=== PATIENT | female | born 2005 | race Caucasian/White ===

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

== ENCOUNTER 2024-06-17 13:48 | Emergency (ER) | payer OTHER, SELFPAY ==
[2024-06-17 13:51] VITALS: BP 118/64; PULSE 96; RESP 19; TEMP 36.9; O2SAT 100
--- NOTE | 2024-06-17 14:30 | ED.GENADULT ---
HPI - General Adult General Stated complaint: Left Leg Pain Source: patient Mode of arrival: ambulatory Limitations: no limitations History of Present Illness HPI narrative: Pt presents for evaluation of left lower extremity pain for the past three days. No identified precipitating cause or injury. She woke from sleep with her symptoms. Pain originates from her hip and radiates into the middle of her thigh. Pain is constant, sharp, 7/10 in severity. No history of similar symptoms. She is current , approximately 28 weeks gestation, under the care of Dr Nuñez. No abdominal pain or vaginal bleeding. She has not taken any medications to assist with her symptoms. She is requesting a note to excuse her from work. 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 Related Data Home Medications Medication Instructions Recorded Confirmed Classic 1 tab-cap PO DAILY 06/17/24 06/17/24 Allergies Allergy/AdvReac Type Severity Reaction Status Date / Time Sulfa (Sulfonamide Allergy Mild Swelling Verified 06/17/24 14:00 Antibiotics) Review of Systems Review of Systems: CONSTITUTIONAL: Denies fever, chills, or sweats. EYES: Denies visual changes, redness, or discharge. ENT: Denies rhinorrhea, congestion, sore throat, or otalgia. CARDIOVASCULAR: Denies chest pain, palpitations, or edema. RESPIRATORY: Denies cough or dyspnea. GASTROINTESTINAL: Denies abdominal pain, nausea, vomiting, or diarrhea. GENITOURINARY: Denies dysuria or hematuria. SKIN: Denies rash or itching. MUSCULOSKELETAL: Reports pain in the left hip with radiation into the thigh. NEUROLOGIC: Denies headache, numbness, dizziness, or weakness. PSYCHIATRIC: Denies anxiety or depression. [facility] Past Medical History Medical History Encounter for screening examination for sexually transmitted disease Normal endoscopy Surgical History Surgical History No pertinent past surgical history Family History Family History Other Breast cancer Other Hypertension Social History Social History Smoking status: Current every day smoker Tobacco type: e-cigarettes/vaping Additional smoking assessment comments: pt has vapped since she was 13 about 20 times a day Alcohol intake: never Substance use: former Substance use type: marijuana Other substance usage details: did 1 time Lack of Transportation: No Lack of Food: Never True Current Housing: I Have Housing Concerned About Future Housing: No Difficulty Paying Gas/Electric Bills: No Difficulty Paying for Meds: No Currently Unemployed: No Education: Grade School Difficulty w/ Childcare or Family Care: No Living arrangements: with family Occupation/Education: student 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 HEAD: Normocephalic, atraumatic. EYES: PERRLA and EOMI. ENT: Nares clear, no rhinorrhea or epistaxis. Mucous membranes moist. Oropharynx without tonsillar hypertrophy exudate or other lesions. Bilateral TMs pearly pantoja nonbulging NECK: Supple. No adenopathy or masses. No carotid bruits or JVD CHEST: Clear to auscultation. No respiratory distress. No wheezes rales or rhonchi HEART: Regular rate and rhythm. No murmur heard. Normal peripheral pulses. ABDOMEN: Soft, nontender, nondistended, normal active bowel sounds. EXTREMITIES: Normal range of motion. No edema. Mild tenderness in proximal left thigh SKIN: Warm, dry, no rash. NE
== END 2024-06-17 14:40 | disposition home or self-care (01) ==
PROVIDERS: Emergency Provider Nurse Practitioner
DX: O99.891 Other specified diseases and conditions complicating pregnancy (principal); Z3A.28 28 weeks gestation of pregnancy; M79.662 Pain in left lower leg; O99.332 Smoking (tobacco) complicating pregnancy, second trimester; F17.290 Nicotine dependence, other tobacco product, uncomplicated
CPT/HCPCS: 99211; G0463

== ENCOUNTER 2024-09-01 00:30 | Inpatient (IN) | payer OTHER, SELFPAY ==
[2024-09-01] VITALS (231 sets, daily range): BP systolic 74–129; BP diastolic 41–94; PULSE 60–152; RESP 12–18; TEMP 36.3–37.1; O2SAT 89–100; BMI 34.0
--- NOTE | 2024-09-01 01:13 | LDADM ---
This patient, Sravanthi Mace, was admitted to Labor/Delivery/Recovery 104 on 09/01/24 at 00:30. Plans for labor, pain management and were discussed with patient. Patient/family oriented to hospital policies and general routines including ID bracelet, bed and alarms, visiting hours, pain management, procedures, bathroom and other care routines, personal items, smoking policy, room service/diet and guest tray routines, security routines, and visiting hours. Patient/Family are encouraged to report perceived risks to care and to ask questions if they do not understand what they are told or what they should do. See OBIX for further documentation.
[2024-09-01] MEDS: LACTATED RINGERS 1,000 ML 125 ML IV CONT ×2 (01:28→10:10)
[2024-09-01 01:31] LABS: Basophils Absolute Auto 0.1 K/mm3 (0.0-0.1); Basophils Percent Auto 0.4 % (0.2-1.2); Eosinophils Absolute Auto 0.1 K/mm3 (0-0.3); Eosinophils Percent Auto 0.7 % (0-4.4); Hematocrit 31.5 % (37.0-47.0); Hemoglobin 10.4 g/dL (12.0-15.0); Immature Granulocyte Absolute 0.11 K/mm3 (0.00-0.031); Immature Granulocyte Percent A 0.9 % (0-0.5); Lymphocytes Absolute Auto 2.57 K/mm3 (0.9-3.2); Mean Corpuscular Hemoglobin 29.2 pg (26-34); Mean Corpuscular Volume 88.5 fl (80-100); Mean Platelet Volume 11.5 fl (7.4-10.4); Monocytes Absolute Auto 0.9 K/mm3 (0.1-0.6); Monocytes Percent Auto 7.5 % (2.6-8.5); Neutrophils Absolute Auto 8.5 K/mm3 (1.3-6.7); Neutrophils Percent Auto 69.5 % (45.5-73.1); Platelet Count Result 216 k/mm3 (150-375); Red Blood Count 3.56 M/mm3 (4.2-5.4); Red Cell Distribution Width 17.7 % (11.5-14.5); White Blood Count 12.2 K/mm3 (4.5-10.0)
[2024-09-01] MEDS: miSOPROStol 25 MCG TABLET 50 MCG BUCCAL ×2 (01:52→05:53)
[2024-09-01 02:27] LABS: HIV 1/2 Ab P24 Ag Result Negative (Negative)
[2024-09-01 02:56] LABS: Rapid Plasma Reagin Non-Reactive (NonReactive)
[2024-09-01] MEDS: ONDANSETRON INJ 4 MG/2 ML VIAL IV PUSH (07:03)
[2024-09-01] MEDS: fentaNYL CITRATE INJ (*CRX) 100 MCG/2 ML VIAL IV PUSH (07:06)
[2024-09-01] MEDS: LACTATED RINGERS 1,000 ML 999 ML IV CONT (07:19)
--- NOTE | 2024-09-01 07:26 | WPDANESEPP ---
Anes - Eval Pre Procedure Procedure: Labor epidural Date/Time: 09/01/24 07:26 Surgeon: Javier Preop Diagnosis: Pain during labor Pre Op Diagnosis: IOL Patient Data Age: 19 Gender: F Height: 1.68 m Weight: 95.5 kg Last Vital Signs Temp 36.3 C L 09/01/24 06:30 Pulse 73 09/01/24 07:00 BP 127/94 H 09/01/24 07:00 Pulse Ox 99 09/01/24 07:21 O2 Del Method Room Air 09/01/24 01:13 Allergies Allergy/AdvReac Type Severity Reaction Status Date / Time Sulfa (Sulfonamide Allergy Mild Swelling Verified 08/21/24 12:34 Antibiotics) Home Medications Medication Instructions Recorded Confirmed Type Classic 1 tab-cap PO DAILY 06/17/24 08/21/24 History ferrous sulfate 325 mg (65 mg 325 mg PO DAILY 08/21/24 08/21/24 History iron) tablet Laboratory Tests 09/01/24 01:00 WBC 12.2 H K/mm3 (4.5-10.0) RBC 3.56 L M/mm3 (4.2-5.4) Hgb 10.4 L g/dL (12.0-15.0) Hct 31.5 L % (37.0-47.0) MCV 88.5 fl (80-100) MCH 29.2 pg (26-34) MCHC 33.0 g/dl (32-36) RDW 17.7 H % (11.5-14.5) Plt Count 216 k/mm3 (150-375) MPV 11.5 H fl (7.4-10.4) Immature Gran % (Auto) 0.9 H % (0-0.5) Neut % (Auto) 69.5 % (45.5-73.1) Lymph % (Auto) 21.0 % (18.3-44.2) Garden % (Auto) 7.5 % (2.6-8.5) Eos % (Auto) 0.7 % (0-4.4) Baso % (Auto) 0.4 % (0.2-1.2) Lymph # (Auto) 2.57 K/mm3 (0.9-3.2) Garden # (Auto) 0.9 H K/mm3 (0.1-0.6) Eos # (Auto) 0.1 K/mm3 (0-0.3) Baso # (Auto) 0.1 K/mm3 (0.0-0.1) Abs Immat Gran (auto) 0.11 H K/mm3 (0.00-0.031) Absolute Neuts (auto) 8.5 H K/mm3 (1.3-6.7) Absolute Nucleated RBC 0.000 K/mm3 (0.0-0.012) Nucleated RBC % 0.0 % (0.0-0.2) RPR Non-reactive (NonReactive) HIV 1&2 Ab/P24 Ag 4thGn Negative (Negative) Blood Type O Positive Antibody Screen Negative Patient hx anesthesia problems: none Family hx anesthesia problems: none Results Review: All pre-operative results and documents have been reviewed as part of the pre-operative evaluation. [facility] Past Medical History Medical History Encounter for screening examination for sexually transmitted disease Normal endoscopy Surgical History Surgical History No pertinent past surgical history Family History Family History Other Breast cancer Other Hypertension Social History Social History Smoking status: Former smoker Tobacco type: e-cigarettes/vaping Second hand tobacco smoke exposure: Yes Smoking end date: 08/30/23 Additional smoking assessment comments: pt has vapped since she was 13 about 20 times a day Alcohol intake: never Substance use: never Substance use type: marijuana Other substance usage details: did 1 time Do You Feel Safe in your Home?: Yes Lack of Transportation: No Lack of Food: Never True Current Housing: I Have Housing Concerned About Future Housing: No Difficulty Paying Gas/Electric Bills: No Difficulty Paying for Meds: No Currently Unemployed: No Education: Grade School Difficulty w/ Childcare or Family Care: No Living arrangements: with family Occupation/Education: student 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
--- NOTE | 2024-09-01 09:15 | P.HP_ITS ---
H&P: HPI History of Present Illness Date/Time: 09/01/24 09:15 Chief Complaint: EIL Narrative: Patient is a 19 year old at 39 weeks who presents for elective induction of labor. Her has been complicated by short interval . She denies LOF or vaginal bleeding. She reports good movement. Starting to get uncomfortable with contractions. Review of Systems Review of Systems: All systems reviewed & are unremarkable except as noted in HPI and below PMFSH Past Medical History Medical History Encounter for screening examination for sexually transmitted disease Normal endoscopy Surgical History Surgical History No pertinent past surgical history Family History Family History Other Breast cancer Other Hypertension Social History Social History Smoking status: Former smoker Tobacco type: e-cigarettes/vaping Second hand tobacco smoke exposure: Yes Smoking end date: 08/30/23 Additional smoking assessment comments: pt has vapped since she was 13 about 20 times a day Alcohol intake: never Substance use: never Substance use type: marijuana Other substance usage details: did 1 time Do You Feel Safe in your Home?: Yes Lack of Transportation: No Lack of Food: Never True Current Housing: I Have Housing Concerned About Future Housing: No Difficulty Paying Gas/Electric Bills: No Difficulty Paying for Meds: No Currently Unemployed: No Education: Grade School Difficulty w/ Childcare or Family Care: No Living arrangements: with family Occupation/Education: student 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 [employer] Gender identity (if verbalized by the patient): Female Sexual Orientation (if Verbalized by the Patient): Straight or Heterosexual Spiritual care concerns: No Meds Home Medications and Allergies Home Medications Medication Instructions Recorded Confirmed Type Classic 1 tab-cap PO DAILY 06/17/24 08/21/24 History ferrous sulfate 325 mg (65 mg 325 mg PO DAILY 08/21/24 08/21/24 History iron) tablet Allergies Allergy/AdvReac Type Severity Reaction Status Date / Time Sulfa (Sulfonamide Allergy Mild Swelling Verified 08/21/24 12:34 Antibiotics) Vital Signs Vital Signs - 24 hr 09/01/24 00:58 09/01/24 01:03 09/01/24 01:08 Temperature Pulse Rate Blood Pressure Pulse Oximetry 98 99 99 Oxygen Delivery 09/01/24 01:13 09/01/24 01:18 09/01/24 01:23 Temperature Pulse Rate Blood Pressure Pulse Oximetry 99 98 99 Oxygen Delivery 09/01/24 01:27 09/01/24 01:30 09/01/24 01:32 Temperature Pulse Rate 89 Blood Pressure 111/67 Pulse Oximetry 98 97 Oxygen Delivery 09/01/24 01:37 09/01/24 01:43 09/01/24 01:48 Temperature Pulse Rate Blood Pressure Pulse Oximetry 98 98 98 Oxygen Delivery 09/01/24 01:52 09/01/24 01:58 09/01/24 02:00 Temperature Pulse Rate 74 Blood Pressure 105/88 Pulse Oximetry 98 98 Oxygen Delivery 09/01/24 02:03 09/01/24 02:08 09/01/24 02:13 Temperature Pulse Rate Blood Pressure Pulse Oximetry 97 97 98 Oxygen Delivery 09/01/24 01:57 09/01/24 02:18 09/01/24 02:22 Temperature 97.4 F L Pulse Rate Blood Pressure Pulse Oximetry 98 98 Oxygen Delivery 09/01/24 02:27 09/01/24 02:30 09/01/24 02:33 Temperature Pulse Rate 77 Blood Pressure 108/69 Pulse Oximetry 98 99 Oxygen Delivery 09/01/24 02:38 09/01/24 02:43 09/01/24 02:48 Temperature Pulse Rate Blood Pressure Pulse Oximetry 99 98 98 Oxygen Delivery 09/01/24 02:53 09/01/24 02:58 09/01/24 03:00 Temperature Pulse Rate 84 Blood Pressure 113/68 Pulse Oximetry 99 98 Oxygen Delivery 09/01/24 03:03 09/01/24 03:08 09/01/24 03:13 Temperature Pulse Rate Blood Pressure Pulse Oximetry 98 98 98 Oxygen Delivery 09/01/24 03:18 09/01/24 03:23 09/01/24 03:28 Temperature Pulse Rate Blood Pressure Pulse Oximetry 98 98 98 Oxygen Delivery 09/01/24 03:30 09/01/24 03:32 09/01/24 03:38 Temperature Pulse Rate 77 Blood Pressure 115/70 Pulse Oximetry 98 98 Oxygen Delivery 09/01/24 03:43 09/01/24 03:48 09/01/24 03:53 Temperature Pulse Rate Blood Pressure Pulse Oximetry 97 98 98 Oxygen Delivery 09/01/24 03:58 09/01/24 04:00 09/01/24 04:03 Temperature Pulse Rate 76 Blood Pressure 126/80 Pulse Oximetry 98 98 Oxygen Delivery 09/01/24 04:08 09/01/24 04:12 09/01/24 04:18 Temperature Pulse Rate Blood Pressure Pulse Oximetry 97 97 97 Oxygen Delivery 09/01/24 04:23 09/01/24 04:28 09/01/24 04:30 Temperature Pulse Rate 74 Blood Pressure 121/76 Pulse Oximetry 97 98 Oxygen Delivery 09/01/24 04:33 09/01/24 04:38 09/01/24 04:43 Temperature Pulse Rate Blood Pressure Pulse Oximetry 97 97 97 Oxygen Delivery 09/01/24 04:48 09/01/24 04:53 09/01/24 04:58 Temperature Pulse Rate Blood Pressure Pulse Oximetry 99 98 98 Oxygen Delivery 09/01/24 05:02 09/01/24 05:07 09/01/24 05:08 Temperature Pulse Rate Blood Pressure Pulse Oximetry 99 100 100 Oxygen Delivery 09/01/24 05:13 09/01/24 05:18 09/01/24 05:23 Temperature Pulse Rate Blood Pressure Pulse Oximetry 98 98 97 Oxygen Delivery 09/01/24 05:28 09/01/24 05:33 09/01/24 05:38 Temperature Pulse Rate Blood Pressure Pulse Oximetry 99 98 98 Oxygen Delivery 09/01/24 05:43 09/01/24 05:48 09/01/24 05:53 Temperature Pulse Rate Blood Pressure Pulse Oximetry 98 98 99 Oxygen Delivery 09/01/24 05:58 09/01/24 06:03 09/01/24 06:08 Temperature Pulse Rate Blood Pressure Pulse Oximetry 98 98 99 Oxygen Delivery 09/01/24 06:13 09/01/24 06:18 09/01/24 06:29 Temperature Pulse Rate Blood Pressure Pulse Oximetry 98 99 99 Oxygen Delivery 09/01/24 06:31 09/01/24 06:34 09/01/24 06:39 Temperature Pulse Rate 80 Blood Pressure 120/87 Pulse Oximetry 98 98 Oxygen Delivery 09/01/24 06:44 09/01/24 06:30 09/01/24 06:49 Temperature 97.4 F L Pulse Rate Blood Pressure Pulse Oximetry 99 100 Oxygen Delivery 09/01/24 06:54 09/01/24 06:59 09/01/24 07:00 Temperature Pulse Rate 73 Blood Pressure 127/94 H Pulse Oximetry 100 99 Oxygen Delivery 09/01/24 07:04 09/01/24 07:06 09/01/24 07:11 Temperature Pulse Rate Blood Pressure Pulse Oximetry 99 99 97 Oxygen Delivery 09/01/24 07:16 09/01/24 07:21 09/01/24 07:26 Temperature Pulse Rate Blood Pressure Pulse Oximetry 100 99 99 Oxygen Delivery 09/01/24 07:31 09/01/24 07:32 09/01/24 07:33 Temperature Pulse Rate 82 83 Blood Pressure 122/75 92/76 L Pulse Oximetry 100 Oxygen Delivery 09/01/24 07:35 09/01/24 07:36 09/01/24 07:38 Temperature Pulse Rate 79 72 Blood Pressure 118/74 121/79 Pulse Oximetry 99 Oxygen Delivery 09/01/24 07:40 09/01/24 07:41 09/01/24 07:43 Temperature Pulse Rate 82 79 Blood Pressure 116/73 103/63 Pulse Oximetry 98 Oxygen Delivery 09/01/24 07:45 09/01/24 07:46 09/01/24 07:48 Temperature Pulse Rate 78 84 Blood Pressure 117/73 109/72 Pulse Oximetry 100 Oxygen Delivery 09/01/24 07:50 09/01/24 07:51 09/01/24 07:53 Temperature Pulse Rate 77 75 Blood Pressure 107/72 109/70 Pulse Oximetry 100 Oxygen Delivery 09/01/24 07:56 09/01/24 08:01 09/01/24 08:02 Temperature Pulse Rate 73 83 78 Blood Pressure 121/71 74/41 L 93/53 L Pulse Oximetry 99 100 Oxygen Delivery 09/01/24 08:03 09/01/24 08:05 09/01/24 08:06 Temperature Pulse Rate 92 85 Blood Pressure 92/52 L 91/53 L Pulse Oximetry 100 Oxygen Delivery 09/01/24 08:08 09/01/24 08:10 09/01/24 08:11 Temperature Pulse Rate 81 70 Blood Pressure 86/56 L 99/63 L Pulse Oximetry 99 Oxygen Delivery 09/01/24 08:13 09/01/24 08:15 09/01/24 08:16 Temperature Pulse Rate 81 92 Blood Pressure 92/53 L 84/53 L Pulse Oximetry 100 Oxygen Delivery 09/01/24 08:18 09/01/24 08:20 09/01/24 08:21 Temperature Pulse Rate 81 62 Blood Pressure 102/56 L 113/69 Pulse Oximetry 100 Oxygen Delivery 09/01/24 08:23 09/01/24 08:25 09/01/24 08:26 Temperature Pulse Rate 61 99 Blood Pressure 105/70 94/74 L Pulse Oximetry 100 Oxygen Delivery 09/01/24 08:27 09/01/24 08:28 09/01/24 08:30 Temperature 97.7 F Pulse Rate 72 74 Blood Pressure 101/63 94/61 L Pulse Oximetry 100 Oxygen Delivery 09/01/24 08:32 09/01/24 08:33 09/01/24 08:36 Temperature Pulse Rate 67 61 Blood Pressure 104/65 107/72 Pulse Oximetry 100 Oxygen Delivery 09/01/24 08:37 09/01/24 08:38 09/01/24 08:41 Temperature Pulse Rate 75 74 Blood Pressure 100/69 104/66 Pulse Oximetry 100 Oxygen Delivery 09/01/24 08:42 09/01/24 08:43 09/01/24 08:46 Temperature Pulse Rate 71 68 Blood Pressure 102/67 109/72 Pulse Oximetry 99 Oxygen Delivery 09/01/24 08:47 09/01/24 08:48 09/01/24 08:51 Temperature Pulse Rate 66 72 Blood Pressure 117/71 114/72 Pulse Oximetry 100 Oxygen Delivery 09/01/24 08:52 09/01/24 08:53 09/01/24 08:56 Temperature Pulse Rate 65 71 Blood Pressure 115/76 119/70 Pulse Oximetry 100 Oxygen Delivery 09/01/24 08:57 09/01/24 09:01 09/01/24 09:02 Temperature Pulse Rate 69 Blood Pressure 122/75 Pulse Oximetry 100 100 Oxygen Delivery 09/01/24 09:07 09/01/24 09:12 09/01/24 09:13 Temperature Pulse Rate 79 Blood Pressure 123/86 Pulse Oximetry 100 100 Oxygen Delivery 09/01/24 01:13 09/01/24 01:38 Temperature Pulse Rate Blood Pressure Pulse Oximetry 98 Oxygen Delivery Room Air Exam Const: General: comfortable and no acute distress HENMT: Mouth: Yes moist mucous membranes Eyes: General: appearance normal, both eyes and all related structures Resp: Effort & Inspection: normal respiratory effort Cardio: Rate: regular rate : Other: SVE 4/80/-2, AROM of clear fluid Extrem: General: normal to inspection Psych: Mental Status: mental status grossly normal H&P: Results Labs Labs: Short CBC 09/01/24 Range/Units 01:00 WBC 12.2 H (4.5-10.0) K/mm3 Hgb 10.4 L (12.0-15.0) g/dL Hct 31.5 L (37.0-47.0) % Plt Count 216 (150-375) k/mm3 Assessment and Plan Assessment and plan (1) Encounter for elective induction of labor: Code(s): Z34.90 - Encounter for supervision of normal , unspecified, unspecified trimester Status: Acute Assessment and Plan: - s/p cytotec x2 - tachysystole, recieving fluid bolus; FHR category I - AROM performed, clear fluid - small dark clots on prior exams since admission - continue to monitor closely
[2024-09-01] MEDS: OXYTOCIN 30 UNITS/NS 500 ML 30 UNITS/500 ML BAG 999 UNITS IV CONT (11:07)
[2024-09-01] MEDS: OXYTOCIN 30 UNITS/NS 500 ML 30 UNITS/500 ML BAG 125 UNITS IV CONT (11:33)
[2024-09-01] MEDS: WITCH HAZEL 40 PADS 1 PAD TOPICAL (13:17)
[2024-09-01] MEDS: BENZOCAINE 20% AER SPR (*SP) 56 GM CAN 1 SPRAY TOPICAL (13:18)
--- NOTE | 2024-09-01 13:30 | OBPPTRN ---
Patient transferred to post room #291 via wheelchair. Support person present. Oriented to unit, room, information board, rooming in, admission packet and security measures. Patient verbalizes understanding.
[2024-09-02 04:19] VITALS: BP 116/74; PULSE 73; RESP 16; TEMP 36.7; O2SAT 99
[2024-09-02 05:48] LABS: Hematocrit 30.1 % (37.0-47.0); Hemoglobin 9.8 g/dL (12.0-15.0)
--- NOTE | 2024-09-02 07:10 | PM.OBPNVD ---
OB - PN: Subj Subjective Date/time seen: 09/02/24 07:10 Interval history: PPD#1 Doing well, pain well controlled Voiding without issue Tolerating general diet Formula feeding Ready for discharge home today OB - PN: Obj Data Labs 09/02/24 04:27 Labs: Laboratory Results - last 24 hr 09/02/24 04:27 Hgb 9.8 L Hct 30.1 L OB - PN A/P Assessment and Plan (1) (spontaneous vaginal delivery): Code(s): O80 - Encounter for full-term uncomplicated delivery Status: Acute Plan day: 1 Plan: routine care and discharge home Time Spent With Patient Time: Total time spent is greater than 50% in coordination of care (as documented) at patient's floor/unit and/or counseling patient: Review of Systems Review of Systems: All systems reviewed & are unremarkable except as noted in HPI and below Exam Const: General: comfortable and no acute distress Orientation/consciousness: patient oriented x3 Resp: Effort & Inspection: normal respiratory effort
--- NOTE | 2024-09-02 07:12 | PM.OBDSVD ---
DS: Admitting Diagnosis Discharge Date 09/02/24 Admitting Diagnosis elective induction of labor DS: Discharge Diagnosis Discharge Diagnosis (1) (spontaneous vaginal delivery): Code(s): O80 - Encounter for full-term uncomplicated delivery Status: Acute OB - DS: Summary OB Procedures : None OB Procedures Intrapartum: Spontaneous Vag Delivery OB Procedures: : None Time Spent with Patient Time attestation: Total time spent providing and/or coordinating discharge services: DS: Data Data Completed and Pending Labs on day of discharge: Labs from last 24 hours 09/02/24 04:27 Hgb 9.8 L Hct 30.1 L Discharge Plan Discharge Attending physician on discharge: Pietro Herrera Discharging Clinician: Pietro Herrera Patient Disposition: Home, Self-Care Activity: may shower, as tolerated and pelvic rest Diet: as tolerated Patient Instructions: Antibiotic Form Stand Alone Forms: General Discharge Information Follow-up/Referrals: Pietro Herrera MD [Physician] - 4 Weeks Discharge Medications: New docusate sodium 100 mg Capsule 100 mg PO BID PRN (Reason: Constipation) Qty: 60 0RF ibuprofen 600 mg Tablet 600 mg PO Q6H PRN (Reason: Cramping) Qty: 30 0RF Continued Classic 1 tab-cap PO DAILY ferrous sulfate 325 mg (65 mg iron) Tablet 325 mg PO DAILY Date of admission: 09/01/24 00:30 Primary Care Provider: UNKNOWN,DOCTOR Admitting Provider: Pietro Herrera Attending physician on admission: Pietro Herrera Condition: Stable
[2024-09-02 07:25] VITALS: BP 107/72; PULSE 71; RESP 16; TEMP 36.6; O2SAT 100
[2024-09-02] MEDS: DOCUSATE SODIUM 100 MG CAPSULE PO (08:37)
[2024-09-02] MEDS: POLYSACCHARIDE IRON COMPLEX 150 MG CAPSULE PO (08:37)
[2024-09-02] MEDS: MULTIVIT/MIN/PREN/FOL AC/IRON TABLET 1 TAB PO (08:38)
--- NOTE | 2024-09-02 10:17 | PC.NURSE ---
On 09/02/24, the student, Kim Ghotra, provided care and completed [facility] documentation on this patient. I have reviewed the student's documentation and agree with the findings.
[2024-09-02] MEDS: IBUPROFEN 600 MG TABLET PO (11:24)
--- NOTE | 2024-09-02 12:19 | PM.OBPRVD ---
OB - Vaginal Delivery Note Procedure Delivery date: 09/01/24 Events: Elective Induction of Labor Induction method: Per Misoprostol Protocol Delivery augmentation: Pitocin Route of delivery: Episiotomy description: None Laceration Description: None Specimen: No Quantitative Blood Loss (ml): 100 Anesthesia type: Epidural Disposition: Floor Complications: No immediate complications Narrative: See H&P and notes for details on patient's admission and labor. She progressed to complete cervical dilation and at the appropriate time began pushing. With adequate expulsive efforts by the mother, the baby's head was delivered without difficulty. Nuchal cord was not present. The baby's right shoulder was anterior and delivered under the pubic symphysis without difficulty. The posterior shoulder and the rest of the baby delivered without difficulty. The umbilical cord was doubly clamped and cut after 60 seconds of delayed cord clamping. Care of the infant was then assumed by the nursing staff. [place] Baby Date of : 09/01/24 Gestational Age by Date: 39 Infant gender: Male presentation: vertex position: Left Occiput Anterior Placenta delivery description: Expressed Cord Vessel Description: 3 Vessels and Delayed Cord Clamping
--- NOTE | 2024-09-02 13:58 | WPDANLDPN2 ---
Anes-Prog Note L&D Date/Time: 09/02/24 13:58 Comfortable throughout: labor and delivery Neuraxial method: epidural Epidural/Spinal procedure site: clean & non-tender Neuro status: Neuro function grossly intact. Cardiovascular status: normal Respiratory status: normal Airway patency: baseline Mental status: baseline Post-Op hydration status: normal Vital Signs: Last Vital Signs Temp 97.8 F 09/02/24 07:25 Pulse 71 09/02/24 07:25 Resp 16 09/02/24 07:25 BP 107/72 09/02/24 07:25 Pulse Ox 100 09/02/24 07:25 O2 Del Method Room Air 09/02/24 08:45 Pain score (VAS): 4/10 when sitting I/O: Intake & Output 09/01/24 09/02/24 09/02/24 23:59 07:59 15:59 Intake Total 100 Balance 100 Post-procedural complaints: none Patient feedback: Patient satisfied with anesthetic care. Other findings: Spoke with Pt about Intrathecal Puncture; treatments and expectations
[2024-09-02] MEDS: INFLUENZA TRIVALENT VACCINE 45 MCG/0.5 ML SYRINGE IM (14:53)
[2024-09-02] MEDS: TETANUS,DIPHTHERIA,AC PERTUSSIS ADULT (0.5 ML) BOOSTRIX IM (14:55)
[2024-09-03 09:32] VITALS: BP 118/85; PULSE 78; RESP 16; TEMP 36.7; O2SAT 100
== END 2024-09-02 16:52 | disposition home or self-care (01) | DRG 560 ==
LOC: ANHLDR 06:09 → ANHOB2 13:34
PROVIDERS: Admitting Provider Obstetrics & Gynecology; Visit Provider Obstetrics & Gynecology
DX: O80 Encounter for full-term uncomplicated delivery (principal); Z37.0 Single live birth; Z3A.39 39 weeks gestation of pregnancy; Z23 Encounter for immunization
CPT/HCPCS: 36415; 85014; 85018; 85025; 86592; 86703; 86850; 86900; 86901; 90471; 90656; 90715; A9270; G0008; G0432; J2405; J2590; J2795; J3010; J7120

== ENCOUNTER 2025-09-03 00:01 | Inpatient (IN) | payer OTHER, SELFPAY ==
[2025-09-03] VITALS (99 sets, daily range): BP systolic 99–137; BP diastolic 40–93; PULSE 27–149; RESP 16–18; TEMP 36.5–37.1; O2SAT 94–100; BMI 35.1
--- OUTSIDE RECORDS SUMMARY | 2025-09-03 00:07 | XMS_ITS | Continuity of Care Document ---
Author Organization [facility] Address [address] [place] [address] Assessment No assessment recorded. Plan of Treatment Reminders Order Date Submit Date Provider Last Modified By Organization Details Last Modified Time Details Appointments INDUCTION 2024 12:01A Alma LOOMIS MD Not available Not available Not available Lab None recorded. Referral None recorded. Procedures None recorded. Surgeries None recorded. Imaging None recorded. Medication Orders None recorded. Patient TargetsNo targets recorded. Patient InstructionsNo instructions recorded. Reason for Referral None Reported. Results Created Date Observation Date Name Description Value Unit Range Abnormal Flag Note LastModifiedBy Organization Detail LastModifiedTime 05/18/2005/18/2025 [UNIT Y] ANEUP LOIDY NIPT fraction 8.5% normal Not Available [facility] [address], [address] [address], [address], 05/18/2025 02:31:53 05/18/20 25 05/18/2025 [UNIT Y] ANEUP LOIDY NIPT 22Q11.2 microdeletio n LOW RISK <1 in 10,000 normal Not Available [facility] [address], [address] [address], [address], 05/18/2025 02:31:53 05/18/20 25 05/18/2025 [UNIT Y] ANEUP LOIDY NIPT sex chromosome aneuploidy NOT DETECT ED normal Not Available [facility] [address], [address] [address], [address], 05/18/2025 02:31:53 05/18/20 25 05/18/2025 [UNIT Y] ANEUP LOIDY NIPT monosomy X LOW RISK <1 in 10,000 normal Not Available [facility] [address], [place], [address], 05/18/2025 02:31:53 05/18/20 25 05/18/2025 [UNIT Y] ANEUP LOIDY NIPT trisomy 13 LOW RISK <1 in 10,000 normal Not Available [facility] [address], [address] [address], [address], 05/18/2025 02:31:53 05/18/20 25 05/18/2025 [UNIT Y] ANEUP LOIDY NIPT trisomy 18 LOW RISK <1 in 10,000 normal Not Available [facility] [address], [place], [address], 05/18/2025 02:31:53 05/18/20 25 05/18/2025 [UNIT Y] ANEUP LOIDY NIPT trisomy 21 LOW RISK <1 in 10,000 normal Not Available [facility] [address], [address] [address], [address], 05/18/2025 02:31:53 05/18/20 25 05/18/2025 [UNIT Y] ANEUP LOIDY NIPT sex MALE normal Not Available [facility] [address], [place] [address], [address], 05/18/2025 02:31:53 05/18/20 25 05/18/2025 [UNIT Y] ANEUP LOIDY NIPT gestation SINGLE TON normal Not Available [facility] [address], [address] [address], [address], 05/18/2025 02:31:53 05/18/20 25 05/18/2025 [UNIT Y] ANEUP LOIDY NIPT for detailed report, see pdf See PDF normal Not Available [facility] [address], [place], [address], 05/18/2025 02:31:53 05/12/2005/12/2025 HIV 1/2 ANTIG EN/AN TIBOD Y, REFLE X CONFI RMATI ON HIV antigen/anti body Nonrea ctive nonrea ctive HIV-1 antig en and HIV-1 /HIV- 2 antib odies were not detec gordo. No labor atory evide nce of HIV infec tion. Not Available [facility] (Lab) [address], [place], [address], 05/13/2025 12:17:00 05/12/2005/12/2025 HEPAT ITIS C ANTIB LAMONTE SCREE N, REFLE X TO CONFI RMATI ON hepatitis C antibody Non-re active non-re active Antib odies to HCV Not Detec gordo, does not exclu de the possi bilit y of expos ure to HCV. Not Available [facility] (Lab) [address], [place], [address], 05/13/2025 12:17:01 05/12/2005/12/2025 HEPAT ITIS B SURFA CE ANTIG EN hepatitis B surface antigen Non-re active non-re active This assay was perfo rmed using [employer] ratio n reage nts and test kits. Value s obtai jefry with other assay metho ds or kits canno t be used inter richmond eably . Not Available [facility] (Lab) [address], [place], [address], 05/13/2025 12:17:01 05/12/2005/12/2025 TSH, REFLE X FREE T4 TSH 1.94 uIU/m L 0.30-5 .33 Not Available [facility] (Lab) [address], [place], [address], 05/13/2025 12:17:02 05/12/2005/12/2025 RUBEL LA IGG ANTIB LAMONTE, QUANT rubella antibodies, IgG Reacti ve reacti ve Not Available [facility] (Lab) [address], [place], [address], 05/13/2025 12:17:02 05/12/2005/12/2025 RUBEL LA IGG ANTIB LAMONTE, QUANT rubella antibodies, IgG quant 113.7 IU/mL >=10 Non-r eacti ve (Non- Immun e) <10 IU/mL React deisi (Immu ne) > or = 10 IU/mL Not Available [facility] (Lab) [address], [place], [address], 05/13/2025 12:17:02 05/12/2005/12/2025 CBC W/DIF F WBC 15.1 10'3/ uL 3.5-10 .5 high Not Available [facility] (Lab) [address], [place], [address], 05/13/2025 12:17:03 05/12/20 25 05/12/2025 CBC W/DIF F RBC 3.60 10'6/ uL (based on docume nted legal sex) 3.80-5 .20 low Not Available [facility] (Lab) [address], [place], [address], 05/13/2025 12:17:03 05/12/20 25 05/12/2025 CBC W/DIF F HGB 10.5 g/dL (based on docume nted legal sex) 11.6-1 5.4 low Not Available [facility] (Lab) [address], [place], [address], 05/13/2025 12:17:03 05/12/2005/12/2025 CBC W/DIF F HCT 32.2 % (based on docume nted legal sex) 34.0-4 5.0 low Not Available [facility] (Lab) [address], [place], [address], 05/13/2025 12:17:03 05/12/2005/12/2025 CBC W/DIF F MCV 89.4 fL 80.0-9 9.0 Not Available [facility] (Lab) [address], [place], [address], 05/13/2025 12:17:03 05/12/2005/12/2025 CBC W/DIF F MCH 29.2 pg 27.0-3 4.0 Not Available [facility] (Lab) [address], [place], [address], 05/13/2025 12:17:03 05/12/20 25 05/12/2025 CBC W/DIF F MCHC 32.6 g/dL 32.0-3 5.5 Not Available [facility] (Lab) [address], [place], [address], 05/13/2025 12:17:03 05/12/2005/12/2025 CBC W/DIF F RDW 14.6 % 11.0-1 5.0 Not Available [facility] (Lab) [address], [place], [address], 05/13/2025 12:17:03 05/12/20 25 05/12/2025 CBC W/DIF F plt 296 10'3/ uL 150-40 0 Not Available [facility] (Lab) [address], [place], [address], 05/13/2025 12:17:03 05/12/2005/12/2025 CBC W/DIF F MPV 11.1 fL 8.8-12 .1 Not Available [facility] (Lab) [address], [place], [address], 05/13/2025 12:17:03 05/12/20 25 05/12/2025 CBC W/DIF F NRBC's 0.0 % 0.0 Not Available [facility] (Lab) [address] [place], [address], 05/13/2025 12:17:03 08/13/20 25 05/12/2025 CBC W/DIF F absolute NRBCs 0.0 10'3/ uL no refere nce range establ ished Not Available [facility] (Lab) [address], [place], [address], 05/13/2025 12:17:03 05/12/20 25 05/12/2025 CBC W/DIF F neutrophils 74.6 % 34.0-7 3.0 high Not Available [facility] (Lab) [address], [place], [address], 05/13/2025 12:17:03 05/12/20 25 05/12/2025 CBC W/DIF F lymphocytes 17.1 % 15.0-5 0.0 Not Available [facility] (Lab) [address], [place], [address], 05/13/2025 12:17:03 05/12/20 25 05/12/2025 CBC W/DIF F monocytes 5.8 % 1.0-15 .0 Not Available [facility] (Lab) [address], [place], [address], 05/13/2025 12:17:03 05/12/20 25 05/12/2025 CBC W/DIF F eosinophils 0.8 % 0.0-8. 0 Not Available [facility] (Lab) [address], [place], [address], 05/13/2025 12:17:03 05/12/20 25 05/12/2025 CBC W/DIF F basophils 0.3 % 0.0-2. 0 Not Available [facility] (Lab) [address] [place], [address], 05/13/2025 12:17:03 05/12/20 25 05/12/2025 CBC W/DIF F immature granulocytes 1.4 % no define d refere nce range Immat ure Granu locyt es (IG) repre sents autom ated enume ratio n of Metam yeloc ytes, Myelo cytes and Promy elocy joel when IG is < 5%. Blast s are not inclu ded in IG and repor gordo separ ately if prese nt. Not Available [facility] (Lab) [address], [place], [address], 05/13/2025 12:17:03 05/12/20 25 05/12/2025 CBC W/DIF F absolute neutrophils 11.3 10'3/ uL 1.5-8. 0 high Not Available [facility] (Lab) [address], [place], [address], 05/13/2025 12:17:03 05/12/20 25 05/12/2025 CBC W/DIF F absolute lymphocytes 2.6 10'3/ uL 1.0-4. 0 Not Available [facility] (Lab) [address], [place], [address], 05/13/2025 12:17:03 05/12/20 25 05/12/2025 CBC W/DIF F absolute monocytes 0.9 10'3/ uL 0.2-1. 0 Not Available [facility] (Lab) [address], [place], [address], 05/13/2025 12:17:03 05/12/20 25 05/12/2025 CBC W/DIF F absolute eosinophils 0.1 10'3/ uL 0.0-0. 6 Not Available [facility] (Lab) [address], [place], [address], 05/13/2025 12:17:03 05/12/20 25 05/12/2025 CBC W/DIF F absolute basophils 0.0 10'3/ uL 0.0-0. 3 Not Available [facility] (Lab) [address], [place], [address], 05/13/2025 12:17:03 05/12/20 25 05/12/2025 CBC W/DIF F absolute immature granulocytes 0.2 10'3/ uL 0.00-0 .10 high Refer ence range s for nonbi nary/ inter sex or unspe cifie d gende r patie nts have not been estab lishe d. Phyllis e refer to the ant peña table for range s estab lishe d for cisge nder patie nts and evalu ate in the clini nico melba xt of the indiv idual patie nt: https ://isaac lizama book. nm.or g/gen derx Not Available [facility] (Lab) [address], [place], [address], 05/13/2025 12:17:03 05/12/2005/12/2025 TYPE/ RH/SC REEN ABO/Rh type O POS Not Available [facility] (Lab) [address], [place], [address], 05/13/2025 12:17:03 05/12/20 25 05/12/2025 TYPE/ RH/SC REEN antibody screen NEG Not Available [facility] (Lab) [address], [place], [address], 05/13/2025 12:17:03 05/12/20 25 05/12/2025 TYPE/ RH/SC REEN exp date 2024 23:59 Not Available [facility] (Lab) [address] [place], [address], 05/13/2025 12:17:03 05/12/2005/12/2025 HEMOG LOBIN A1C hemoglobin A1C 4.9 % 4.0-5. 6 The Ameri can [employer] iatio n recom mends that a prima ry goal of thera py armando d be a HBA1C of < 7% and that physi cians littleul d reeva luate the treat ment regim en in patie nts with HBA1C value s consi stent ly > 8%. <5.7% Stefanie l 5.7 - 6.4% Incre ased risk for diabe joel >=6.5 % Diagn ostic of diabe joel <7.0% Goal of thera py >8.0% Actio n sugge sted Not Available [facility] (Lab) [address], [place], [address], 05/13/2025 12:17:04 05/12/20 25 05/12/2025 RPR SCREE N, REFLE X TITER /CONF IRMAT ION RPR qualitative Nonrea ctive nonrea ctive Not Available [facility] (Lab) [address], [place], [address], 05/13/2025 12:17:04 05/12/20 25 05/12/2025 CT/GC AND TRICH OMONA S VAGIN ZOHAIB (RRNA ), URINE chlamydia trachomatis, PCR Negati ve negati ve Not Available [facility] (Lab) [address], [place], [address], 05/13/2025 15:07:55 05/12/20 25 05/12/2025 CT/GC AND TRICH OMONA S VAGIN ZOHAIB (RRNA ), URINE neisseria gonorrhoeae, PCR Negati ve negati ve Not Available [facility] (Lab) [address], [place], [address], 05/13/2025 15:07:55 05/12/20 25 05/12/2025 CT/GC AND TRICH OMONA S VAGIN ZOHAIB (RRNA ), URINE trichomonas vaginalis ribosomal RNA (rrna) Negati ve negati ve Not Available [facility] (Lab) [address], [place], [address], 05/13/2025 15:07:55 06/15/20 25 06/15/2025 HEMAT OCRIT (HCT) HCT 29.3 % (based on docume nted legal sex) 34.0-4 5.0 low Not Available [facility] (Lab) [address], [place], [address], 06/16/2025 12:51:37 06/15/20 25 06/15/2025 HEMOG LOBIN (HGB) HGB 9.2 g/dL (based on docume nted legal sex) 11.6-1 5.4 low Not Available [facility] (Lab) [address], [place], [address], 06/16/2025 12:51:38 06/15/20 25 06/15/2025 GTT - GESTA RAMANA L SCREE N, ACOG OB glucose, 1 hour screen 117 mg/dL 70-135 Not Available [facility] (Lab) [address], [place], [address], 06/16/2025 12:51:38 06/15/2006/15/2025 HIV 1/2 ANTIG EN/AN TIBOD Y, REFLE X CONFI RMATI ON HIV antigen/anti body Nonrea ctive nonrea ctive HIV-1 antig en and HIV-1 /HIV- 2 antib odies were not detec gordo. No labor atory evide nce of HIV infec tion. Not Available [facility] (Lab) [address], [place], [address], 06/16/2025 12:51:39 06/15/2006/15/2025 RPR SCREE N, REFLE X TITER /CONF IRMAT ION RPR qualitative Nonrea ctive nonrea ctive Not Available [facility] (Lab) [address], [place], [address], 06/16/2025 12:51:40 07/13/2007/13/2025 US, obste tric, follo w-up No observ ation record ed. [email or web address], [place], [address], 07/13/2025 18:01:23 07/13/20 25 07/13/2025 US, obste tric, follo w-up No observ ation record ed. [email or web address] [address], [place], [address], 07/13/2025 19:53:12 Result Notes None recorded. Problems Name Problem SNOMED Code Status Onset Date Resolution Date Notes Provider Name and Address Organization Details Recorded Time Asthma 977705773 Completed mild-exe rcise-in duced Nadeem Boudreaux [facility] 3 11:02:05 Increase d lactatio n 58532567 Completed Nadeem Boudreaux [facility] 3 11:02:05 Pregnanc y 94154420 Completed 202208/14/2023 Tisha Sifuentes [facility] 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 3 11:02:05 Anemia 008470422 Completed 2022 bid slowfe Nadeem Boudreaux [facility] 3 11:02:05 Pregnanc y 32542289 Completed 202309/24/2024 Tisha Sifuentes [facility] 5 17:22:27 Anemia 578581605 Completed 2023 iron infusion s per SP Nadeem Boudreaux [facility] 4 11:39:43 Pregnanc y 66001426 Active 2024 Tisha Sifuentes [facility] 5 17:22:27 Iron deficien cy anemia 89755824 Active 2024 Darya baker g iron infusion . 07/01/25 order faxed 07/01 (IV iron infusion s previous pregnanc y) Darya Baeza [facility] 5 14:25:40 Aicha trujillo 934882703 Active 2024 tubal papers signed 07/27 JOSÉ LOOMIS MD [address], [place], [address], [facility] 5 15:13:20 Problem Notes None recorded. Procedures Surgical History Date Name Laterality Status Provider Name and Address Organization Details Recorded Time 09/30/19 21 Date of Last Colonoscopy completed [facility] 01/10/2023 12:29:01 09/30/19 21 endoscopy completed [facility] 01/10/2023 12:30:43 09/30/19 21 Colonoscopy completed [facility] 01/10/2023 12:30:50 Imaging Results None recorded. Procedure Notes None recorded. Medical Equipment None Reported. Allergies Allergen ID Allergen Name Allergen Category Reaction Reaction Severity Criticality Documentation Date Start Date Code Code System Note Provider Name and Address Organization Details Recorded Time Substance with sulfonami de structure and antibacte rial mechanism of action (substanc e) medicatio n swelling Not available Not available 01/10/2023 50038 8003 SNOMED Radha Pipe lomeli, [facility] 3 11:53:58 Medications Name Sig Start Date Stop Date Status Note LastModified by Organization Details LastModified Time fluconazole 150 mg tablet TAKE 1 TABLET BY MOUTH ONE TIME 02/07 completed Not Available Not Available Not Available metronidazo le 0.75 % (37.5 mg/5 gram) vaginal gel APPLY 1 APPLICATE RFUL VAGINALLY DAILY FOR 5 DAYS 02/07 completed Not Available Not Available Not Available metronidazo le 500 mg tablet TAKE 1 TABLET BY MOUTH TWICE DAILY 02/07 completed Not Available Not Available Not Available ondansetron 8 mg disintegrat ing tablet Place 1 tablet twice a day by transling ual route. 10/13 completed Not Available Not Available Not Available cephalexin 500 mg capsule TAKE 1 CAPSULE BY MOUTH TWICE A DAY FOR 7 DAYS 07/26 completed Not Available Not Available Not Available ibuprofen 600 mg tablet TAKE 1 TABLET BY MOUTH 4 TIMES DAILY NEEDED FOR PAIN AND FEVER 02/07 completed Not Available Not Available Not Available loratadine 10 mg tablet TAKE 1 TABLET BY MOUTH ONCE DAILY 02/07 completed Not Available Not Available Not Available tobramycin 0.3 %-dexametha sone 0.1 % eye drops,suspe nsion INSTILL 1 DROP INTO RIGHT EYE 4 TIMES DAILY FOR 7 DAYS 02/07 completed Not Available Not Available Not Available 1.530 (28) 1.5 mg-30 mcg (21)/75 mg (7) tablet TAKE 1 TABLET BY MOUTH EVERY DAY 02/07 completed Not Available Not Available Not Available active Not Available Not Avai lable Not Available Jerilyn 0.25 mg-0.035 mg tablet TAKE 1 TABLET BY MOUTH EVERY DAY 05/12 completed Not Available Not Available Not Available Vitals Date Recorded Body weight Systolic And Diastolic Provider Name and Address Organization Details Last Updated DateTime 06/15/2025 95468.35240 g 122/83 mm[Hg] Cyndy Mccain [facility] 06/15/2025 14:31:37 Social History Question Answer Notes LastModified by Organizat ion Details LastModified Time Tobacco Smoking Status Never Smoker Bradreji Ceballosmaryellen lomeli, [facility] 07/15/2023 14:04:09 Are You Blind Or Do You Have Difficulty Seeing? No Information n ot available 05/14/2023 What Is Your Level Of Caffeine Consumption? Occasional Information not available 05/14/2023 In The 14 Days Before Symptom Onset, Have You Had Close Contact With A Laboratory-confirm ed COVID-19 While That Case Was Ill? No Information n ot available 05/14/2023 In The 14 Days Before Symptom Onset, Have You Had Close Contact With A Person Who Is Under Investigation For COVID-19 While That Person Was Ill? No Information not available 05/14/2023 Have You Been To An Area Known To Be High Risk For COVID-19? No Information not available 05/14/2023 Are You Deaf Or Do You Have Serious Difficulty Hearing? No Information not available 05/14/2023 What Type Of Diet Are You Following? REGULAR Information n ot available 05/14/2023 Are There Any Guns Present In Your Home? No Information not available 05/14/2023 Do You Use Protection During Sex? No Information not available 05/14/2023 Do You Use Your Seat Belt Or Car Seat Routinely? Yes Information not available 05/14/2023 Are You Sexually Active? Yes Information not available 10/13/2024 Do You Have Smoke And Carbon Monoxide Detectors In Your Home? Yes Information not available 05/14/2023 At What Age Did You Start Smoking Tobacco? 11 Information not available 05/14/2023 How Much Tobacco Do You Smoke? No Information not available 05/14/2023 Do You Use Sunscreen Routinely? Yes Information not available 05/14/2023 Has Tobacco Cessation Counseling Been Provided? No [email or web address] Information not available 07/15/2023 Have You Used IV Drugs? No Information not available 05/14/2023 Do You Have Difficulty Walking Or Climbing Stairs? No Information not available 07/15/2023 Sex: Unknown Functional Status Question Answer Note LastModified by Organizat ion Details LastModified Time Do you use any illicit or recreational drugs? Yes Information not available 05/14/2023 Do you or have you ever used any other forms of tobacco or nicotine? Yes [email or web address] Information not available 07/15/2023 What is your level of alcohol consumption? None Information not available 05/14/2023 Are you currently employed? No [email or web address] Information not available 10/13/2024 Are you able to walk independently without assistance or assistive devices? [email or web address] Information not available 05/14/2023 Are you able to care for yourself independently? Yes [email or web address] Information not available 07/15/2023 Do you have difficulty dressing, bathing, grooming, or toileting? No [email or web address] Information not available 07/15/2023 Do you or have you ever used e-cigarettes or vape? Current user of electronic cigarettes [email or web address] Information not available 07/15/2023 What is your exercise level? Occasional Information not available 05/14/2023 Mental Status Question Answer Note LastModified by Organization D etails LastModified Time Do you feel stressed (tense, restless, nervous, or anxious, or unable to sleep at night)? [id number] Information not available 05/14/2023 Family History Relationship Description Onset Age of this Age Resolved Age Notes LastModified by Organization Details LastModified Time Paternal Aunt Malignant neoplasm of breast Not available 01/10 12:29:46 Paternal Aunt Malignant neoplasm of breast Not available 2023 14:30:13 Medical History Condition Response Allergies (Food, seasonal, environmental ) N Other N Breast Cancer N Drug/Latex Allergies/Reactions N Blood Transfusion N Dermatologic Disorders N Lung Disease N Defects or Inherited Disease N Breast Problem N Gestational Diabetes N Hematologic disorders N Anesthesia Complications N History of STI N Deep Vein Thrombosis N Polycystic ovary syndrome N Anxiety Disorder N Autoimmune disease N Arthritis N Infertility N Polyps N Acid Reflux (GERD) N History of abnormal pap N Cancer N Stroke N Varicosities N Neurologic/Epilepsy N Endometriosis N High Cholesterol N Headaches N Fibromyalgia N Kidney Disease N Heart Problems N Kidney or Bladder Problems N Thyroid Problems N GI Problems N Eating Disorder N Anemia N Art (IVF or FET) N Psychiatric Illness N Ovarian Cancer N Diabetes N Pulmonary (TB, Asthma) N Hepatitis/Liver Disease N No Past Medical History N Eczema N Urinary Tract Infection N Abuse/Domestic Violence N Asthma N Trauma/Violence N Depression/ depression N Heart Disease N Pre-Eclampsia N Hypertension N Osteoporosis N Thrombophilias N Gynecological History Statement/Question Response Abnormal Pap N Date of Last Colonoscopy 09/30/2020 Date of Last Mammogram Flow Moderate Date of LMP 01/09/2025 Sexually Active? Y Date of DEXA bone scan STIs/STDs N Age of first menstrual cycle 8 Date of Last Pap Smear Current Control Method LMP Unknown Obstetrics History GPAL:G 3 P 2 0 0 2 Type Value Full Term 2 Living 2 Total 3 Past Encounters Encounter ID Performer Location Encounter Start Date Encounter Closed Date Diagnosis/Indication Diagnosis SNOMED-CT Code Diagnosis ICD10 Code Diagnosis IMO Codes Diagnosis Note [id number] JOSÉ LOOMIS MD [facility] [address] [address] 06/15/2025 14:07:20 06/15/2025 15:15:28 Finding of pattern of 137572643 O09.899 44695013 - growth US at 32 weeks Gestation period, 27 weeks 12424336 Z3A.27 4841656 - continue [facility] Concerns Section Related Observation LastModified by Organization Detai ls LastModified Time None Recorded Concern Status LastModified by Organization Details LastModified Time None Recorded Payers Encounter Date Sequence Insurance Name Policy Number Policy Paz Covered Member ID Paz Member ID Guarantor Name 06/15/2025 1 [facility] (MEDICAID HMO) [id number] [facility] [id number] [facility] Notes Date Note Type Note Provider Name and Address Organization Details Recorded Time 06/15/2025 text/html Generic HPI TemplateReported by Patient JOSÉ LOOMIS MD [address], [place], [address], [facility] 06/15/2025 14:51:53 OBGyn Episode Ob Episode Information Episode Created Date Number of Fetuses Patient Bloodtype Patient rh Status Prepregnancy Weight lbs Domestic Partner Domestic Partner Phone Father Name Stopping Builder Status 05/12/20 25 1 O Positive 215 OPEN Fetus Data First Name Last Name Admitted to NICU Weight (g) Sex Living Outcome Pediatric Complications Fetus ID Race Codes Race Delivery Type [id number] Problems Problem Notes iron infusions in previous p regnancy Problem Name Start Date End Date Resolution Snomed Code Not e Iron deficiency anemia 07/01/2025 530920 02 Darya is arranging iron infusion. 07/01/25 order faxed 07/01 (IV iron infusions previous ) Sterilization requested 07/29/2025 [id number] tubal papers signed 07/27 Christopher Calculation Initial Christopher Date Initial Exam Date Initial Exam Provider Initial Ultrasound Date Last Menstrual Period Date Ultra Sound Weeks Gestation 09/08/20[birth year] 05/12/2025 04/14/2025 01/09/2025 19 Eighteen To Twenty Week Christopher Update Ultra Sound Date Fundal Height At Umbil Quickening Date Ultra Sound Latest Weeks Gestation Final Christopher Confirmed By Final Christopher Confirmed Date Final Christopher Date Ultra Sound Latest Days Gestation 0 0 Pre-emil Flowsheet Flowsheet Date 05/12/2025 Medel Score Blood Edema Fundus Height Fundus Units Glucose Ketones Leukocytes Nitrite Labor Signs Protein Cervic Dilation Cervic Effacement Cervic Station Type Weight in lbs Pre/Post Dialysis Refused [id number] BP Diastolic BP Location Tested BP Systolic BP Type 74 L arm 104 sitting Fetus Heart Rate Present A Present Fetus Movement A Yes Comments Patient presents to [facility] care. Hx of short interval x2 and late care. otherwise uncomplicated. No nausea or cramping. Anatomy complete and normal, EFW 37%. Desires NIPT, will draw today with new OB labs. Repeat US at 32 weeks for growth for short interval RTC 4 weeks for routine care. Flowsheet Date 06/15/2025 Medel Score Blood Edema Fundus Height Fundus Units Glucose Ketones Leukocytes Nitrite Labor Signs Protein Cervic Dilation Cervic Effacement Cervic Station Type Weight in lbs Pre/Post Dialysis Refused 218.368829512589 BP Diastolic BP Location Tested BP Systolic BP Type 83 L arm 122 sitting Fetus Heart Rate Present A 145 Fetus Movement A Yes Comments Doing well, good movem ent. Having some diastasis. No bleeding, no cramping. GCT and labs today. Discussed tdap vaccine. RTC 2 weeks. Flowsheet Date 07/01/2025 Medel Score Blood Edema Fundus Height Fundus Units Glucose Ketones Leukocytes Nitrite Labor Signs Protein Cervic Dilation Cervic Effacement Cervic Station Type Weight in lbs Pre/Post Dialysis Refused Weight 217.063645578230 BP Diastolic BP Location Tested BP Systolic BP Type 74 L arm 107 sitting Fetus Heart Rate Present A 154 Present Fetus Movement A Yes Comments marked anemia, Darya to arr mandie iron infusion,no complaints, no problems, routine care, no contractions, no vaginal bleeding, no loss of fluid, no cramping Flowsheet Date 07/13/2025 Medel Score Blood Edema Fundus Height Fundus Units Glucose Ketones Leukocytes Nitrite Labor Signs Protein Cervic Dilation Cervic Effacement Cervic Station Type Weight in lbs Pre/Post Dialysis Refused BP Diastolic BP Location Tested BP Systolic BP Type Fetus Heart Rate Present Fetus Movement Comments Flowsheet Date 07/13/2025 Medel Score Blood Edema Fundus Height Fundus Units Glucose Ketones Leukocytes Nitrite Labor Signs Protein Cervic Dilation Cervic Effacement Cervic Station Type Weight in lbs Pre/Post Dialysis Refused Weight 214.970161301380 BP Diastolic BP Location Tested BP Systolic BP Type 73 L arm 109 sitting Fetus Heart Rate Present A 140 Fetus Movement A Yes Comments Doing well, good movem ent. Starting Fe infusions tomorrow. No strong contractions, LOF, or VB. EFW 41%, normal ALFREDA. WOuld like 39-40 week EIL. Discussed preadmission and RSV. RTC 2 weeks. Flowsheet Date 07/27/2025 Medel Score Blood Edema Fundus Height Fundus Units Glucose Ketones Leukocytes Nitrite Labor Signs Protein Cervic Dilation Cervic Effacement Cervic Station Type Weight in lbs Pre/Post Dialysis Refused 213.763464700444 BP Diastolic BP Location Tested BP Systolic BP Type 76 L arm 116 sitting Fetus Heart Rate Present A 135 Fetus Movement A Yes Comments Good movement. No cram ping or bleeding. Doing well with Fe infusions, repeat today. Would like EIL on 09/03. Discussed GBS for next visit. Also discussed patient's desire for permanent sterilization. She has completed childbearing after this and would like a permanent form of control. She and her partner have discussed their options and would like to move forward with tubal ligation. Tubal papers signed today. RTC 2 weeks. Flowsheet Date 08/11/2025 Medel Score Blood Edema Fundus Height Fundus Units Glucose Ketones Leukocytes Nitrite Labor Signs Protein Cervic Dilation Cervic Effacement Cervic Station 2cm 20% Type Weight in lbs Pre/Post Dialysis Refused Weight 214.169937517017 BP Diastolic BP Location Tested BP Systolic BP Type 76 L arm 111 sitting Fetus Heart Rate Present A 141 Fetus Movement A Yes Comments no complaints, no problems, routine care, no contractions, no vaginal bleeding, no loss of fluid, no cramping Flowsheet Date 08/20/2025 Medel Score Blood Edema Fundus Height Fundus Units Glucose Ketones Leukocytes Nitrite Labor Signs Protein Cervic Dilation Cervic Effacement Cervic Station 2cm 50% -3 Type Weight in lbs Pre/Post Dialysis Refused Weight 212.495726810564 BP Diastolic BP Location Tested BP Systolic BP Type 87 L arm 124 sitting Fetus Heart Rate Present A 150 Fetus Movement A Yes Comments Baby active. No cramping or bleeding. Has had extra discharge since last week. Low suspicion for rupture. GBS negative. RTC 1 week. Flowsheet Date 08/25/2025 Medel Score Blood Edema Fundus Height Fundus Units Glucose Ketones Leukocytes Nitrite Labor Signs Protein Cervic Dilation Cervic Effacement Cervic Station 3cm 50% -3 Type Weight in lbs Pre/Post Dialysis Refused Weight 210.409430834103 BP Diastolic BP Location Tested BP Systolic BP Type 82 L arm 120 sitting Fetus Heart Rate Present A 140 Fetus Movement A Yes Comments Good movement. Had stephon e shooting pains last night, now improved. No bleeding. Discharge unchanged. EIL next Saturday. Menstrual History Last Menstrual Date Menses Monthly On Bcp Conception Prior Menses Frequency Hcg Plus Date Menarche Onset Age 0401/09/2025 true 28 9 Delivery Information Delivery Date Delivery Type Labor Anesthesia Weeks Gestation Incision Type Labor Labor Length Hrs Delivered By Post Complications Tubal Sterilization Discharge Date Comments Discharge Information Feeding Method Contraceptive Method Maternal HG B and HCT Levels
--- OUTSIDE RECORDS SUMMARY | 2025-09-03 00:07 | XMS_ITS | Continuity of Care Document ---
Author Organization [facility] Address [address] [place] [address] Assessment No assessment recorded. Plan of Treatment [...] [facility] [address], [place], [address], 05/18/2025 02:31:53 05/18/20 25 05/18/2025 [UNIT Y] ANEUP LOIDY NIPT 22Q11.2 microdeletio n LOW RISK <1 in 10,000 normal Not Available [facility] [address], [place], [address], 05/18/2025 02:31:53 05/18/20 25 05/18/2025 [UNIT Y] ANEUP LOIDY NIPT sex chromosome aneuploidy NOT DETECT ED normal Not Available [facility] [address], [place], [address], 05/18/2025 02:31:53 05/18/20 25 05/18/2025 [UNIT Y] ANEUP LOIDY NIPT monosomy X LOW RISK <1 in 10,000 normal Not Available [facility] [address], [place], [address], 05/18/2025 02:31:53 05/18/20 25 05/18/2025 [UNIT Y] ANEUP LOIDY NIPT trisomy 13 LOW RISK <1 in 10,000 normal Not Available [facility] [address], [place], [address], 05/18/2025 02:31:53 05/18/20 25 05/18/2025 [UNIT Y] ANEUP LOIDY NIPT trisomy 18 LOW RISK <1 in 10,000 normal Not Available [facility] [address], [place], [address], 05/18/2025 02:31:53 05/18/20 25 05/18/2025 [UNIT Y] ANEUP LOIDY NIPT trisomy 21 LOW RISK <1 in 10,000 normal Not Available [facility] [address], [place], [address], 05/18/2025 02:31:53 05/18/20 25 05/18/2025 [UNIT Y] ANEUP LOIDY NIPT sex MALE normal Not Available [facility] [address], [place], [address], 05/18/2025 02:31:53 05/18/20 25 05/18/2025 [UNIT Y] ANEUP LOIDY NIPT gestation SINGLE TON normal Not Available [facility] [address], [place], [address], 05/18/2025 02:31:53 05/18/20 25 05/18/2025 [UNIT Y] ANEUP LOIDY NIPT for detailed report, see pdf See PDF normal Not Available [facility] [address], [place], [address], 05/18/2025 02:31:53 05/12/2005/12/2025 HIV 1/2 ANTIG EN/AN TIBOD Y, REFLE X CONFI RMATI ON HIV antigen/anti body Nonrea ctive nonrea ctive HIV-1 antig en and HIV-1 /HIV- 2 antib odies were not detec gordo. No labor atory evide nce of HIV infec tion. Not Available [facility] (Lab) [address] [facility] [address] [facility], [place], [address], 05/13/2025 12:17:00 05/12/2005/12/2025 HEPAT ITIS C ANTIB LAMONTE SCREE N, REFLE X TO CONFI RMATI ON hepatitis C antibody Non-re active non-re active Antib odies to HCV Not Detec gordo, does not exclu de the possi bilit y of expos ure to HCV. Not Available [facility] (Lab) [address] [facility], [place], [address], 05/13/2025 12:17:01 05/12/2005/12/2025 HEPAT ITIS B SURFA CE ANTIG EN hepatitis B surface antigen Non-re active non-re active This assay was perfo rmed using [employer] ratio n reage nts and test kits. Value s obtai jefry with other assay metho ds or kits canno t be used inter richmond eably . Not Available [facility] (Lab) [address] [facility], [place], [address], 05/13/2025 12:17:01 05/12/2005/12/2025 TSH, REFLE X FREE T4 TSH 1.94 uIU/m L 0.30-5 .33 Not Available [facility] (Lab) [address] [facility], [place], [address], 05/13/2025 12:17:02 05/12/2005/12/2025 RUBEL LA IGG ANTIB LAMONTE, QUANT rubella antibodies, IgG Reacti ve reacti ve Not Available [facility] (Lab) [address] [facility], [place], [address], 05/13/2025 12:17:02 05/12/2005/12/2025 RUBEL LA IGG ANTIB LAMONTE, QUANT rubella antibodies, IgG quant 113.7 IU/mL >=10 Non-r eacti ve (Non- Immun e) <10 IU/mL React deisi (Immu ne) > or = 10 IU/mL Not Available [facility] (Lab) [address] [facility], [place], [address], 05/13/2025 12:17:02 05/12/2005/12/2025 CBC W/DIF F WBC 15.1 10'3/ uL 3.5-10 .5 high Not Available [facility] (Lab) [address] [facility], [place], [address], 05/13/2025 12:17:03 05/12/20 25 05/12/2025 CBC W/DIF F RBC 3.60 10'6/ uL (based on docume nted legal sex) 3.80-5 .20 low Not Available [facility] (Lab) [address] [facility], [place], [address], 05/13/2025 12:17:03 05/12/20 25 05/12/2025 CBC W/DIF F HGB 10.5 g/dL (based on docume nted legal sex) 11.6-1 5.4 low Not Available [facility] (Lab) [address] [facility], [place], [address], 05/13/2025 12:17:03 05/12/2005/12/2025 CBC W/DIF F HCT 32.2 % (based on docume nted legal sex) 34.0-4 5.0 low Not Available [facility] (Lab) [address] [facility], [place], [address], 05/13/2025 12:17:03 05/12/2005/12/2025 CBC W/DIF F MCV 89.4 fL 80.0-9 9.0 Not Available [facility] (Lab) [address], [place], [address], 05/13/2025 12:17:03 05/12/2005/12/2025 CBC W/DIF F MCH 29.2 pg 27.0-3 4.0 Not Available [facility] (Lab) [address], [place], [address], 05/13/2025 12:17:03 05/12/20 25 05/12/2025 CBC W/DIF F MCHC 32.6 g/dL 32.0-3 5.5 Not Available [facility] (Lab) [address], [place], [address], 05/13/2025 12:17:03 05/12/2005/12/2025 CBC W/DIF F RDW 14.6 % 11.0-1 5.0 Not Available [facility] (Lab) [address], [place], [address], 05/13/2025 12:17:03 05/12/20 25 05/12/2025 CBC W/DIF F plt 296 10'3/ uL 150-40 0 Not Available [facility] (Lab) [address], [place], [address], 05/13/2025 12:17:03 05/12/2005/12/2025 CBC W/DIF F MPV 11.1 fL 8.8-12 .1 Not Available [facility] (Lab) [address], [place], [address], 05/13/2025 12:17:03 05/12/20 25 05/12/2025 CBC W/DIF F NRBC's 0.0 % 0.0 Not Available [facility] (Lab) [address] [place], [address], 05/13/2025 12:17:03 08/13/20 25 05/12/2025 CBC W/DIF F absolute NRBCs 0.0 10'3/ uL no refere nce range establ ished Not Available [facility] (Lab) [address] [facility], [place], [address], 05/13/2025 12:17:03 05/12/20 25 05/12/2025 CBC W/DIF F neutrophils 74.6 % 34.0-7 3.0 high Not Available [facility] (Lab) [address] [facility], [place], [address], 05/13/2025 12:17:03 05/12/20 25 05/12/2025 CBC W/DIF F lymphocytes 17.1 % 15.0-5 0.0 Not Available [facility] (Lab) [address] [facility], [place], [address], 05/13/2025 12:17:03 05/12/20 25 05/12/2025 CBC W/DIF F monocytes 5.8 % 1.0-15 .0 Not Available [facility] (Lab) [address] [facility], [place], [address], 05/13/2025 12:17:03 05/12/20 25 05/12/2025 CBC W/DIF F eosinophils 0.8 % 0.0-8. 0 Not Available [facility] (Lab) [address] [facility], [place], [address], 05/13/2025 12:17:03 05/12/20 25 05/12/2025 CBC W/DIF F basophils 0.3 % 0.0-2. 0 Not Available [facility] (Lab) [address] [place], [address], 05/13/2025 12:17:03 05/12/20 25 05/12/2025 CBC W/DIF [...] separ ately if prese nt. Not Available [facility] (Lab) [address] [facility], [place], [address], 05/13/2025 12:17:03 05/12/20 25 05/12/2025 CBC W/DIF F absolute neutrophils 11.3 10'3/ uL 1.5-8. 0 high Not Available [facility] (Lab) [address] [facility], [place], [address], 05/13/2025 12:17:03 05/12/20 25 05/12/2025 CBC W/DIF F absolute lymphocytes 2.6 10'3/ uL 1.0-4. 0 Not Available [facility] (Lab) [address] [facility], [place], [address], 05/13/2025 12:17:03 05/12/20 25 05/12/2025 CBC W/DIF F absolute monocytes 0.9 10'3/ uL 0.2-1. 0 Not Available [facility] (Lab) [address] [facility], [place], [address], 05/13/2025 12:17:03 05/12/20 25 05/12/2025 CBC W/DIF F absolute eosinophils 0.1 10'3/ uL 0.0-0. 6 Not Available [facility] (Lab) [address] [facility], [place], [address], 05/13/2025 12:17:03 05/12/20 25 05/12/2025 CBC W/DIF F absolute basophils 0.0 10'3/ uL 0.0-0. 3 Not Available [facility] (Lab) [address] [facility], [place], [address], 05/13/2025 12:17:03 05/12/20 25 05/12/2025 CBC W/DIF [...] lizama book. nm.or g/gen derx Not Available [facility] (Lab) [address] [facility], [place], [address], 05/13/2025 12:17:03 05/12/2005/12/2025 TYPE/ RH/SC REEN ABO/Rh type O POS Not Available [facility] (Lab) [address] [facility] [address] [facility], [place], [address], 05/13/2025 12:17:03 05/12/20 25 05/12/2025 TYPE/ RH/SC REEN antibody screen NEG Not Available [facility] (Lab) [address] [facility] [address] [facility], [place], [address], 05/13/2025 12:17:03 05/12/20 25 05/12/2025 TYPE/ RH/SC REEN exp date 2024 23:59 Not Available [facility] (Lab) [address] [place], [address], 05/13/2025 12:17:03 05/12/2005/12/2025 HEMOG LOBIN A1C hemoglobin [...] >8.0% Actio n sugge sted Not Available [facility] (Lab) [address] [facility] [address] [facility], [place], [address], 05/13/2025 12:17:04 05/12/20 25 05/12/2025 RPR SCREE N, REFLE X TITER /CONF IRMAT ION RPR qualitative Nonrea ctive nonrea ctive Not Available [facility] (Lab) [address] [facility], [place], [address], 05/13/2025 12:17:04 05/12/20 25 05/12/2025 CT/GC AND TRICH OMONA S VAGIN ZOHAIB (RRNA ), URINE chlamydia trachomatis, PCR Negati ve negati ve Not Available [facility] (Lab) [address] [facility] [address] [facility], [place], [address], 05/13/2025 15:07:55 05/12/20 25 05/12/2025 CT/GC AND TRICH OMONA S VAGIN ZOHAIB (RRNA ), URINE neisseria gonorrhoeae, PCR Negati ve negati ve Not Available [facility] (Lab) [address] [facility], [place], [address], 05/13/2025 15:07:55 05/12/20 25 05/12/2025 CT/GC AND TRICH OMONA S VAGIN ZOHAIB (RRNA ), URINE trichomonas vaginalis ribosomal RNA (rrna) Negati ve negati ve Not Available [facility] (Lab) [address] [facility], [place], [address], 05/13/2025 15:07:55 06/15/20 25 06/15/2025 HEMAT OCRIT (HCT) HCT 29.3 % (based on docume nted legal sex) 34.0-4 5.0 low Not Available [facility] (Lab) [address] [facility], [place], [address], 06/16/2025 12:51:37 06/15/20 25 06/15/2025 HEMOG LOBIN (HGB) HGB 9.2 g/dL (based on docume nted legal sex) 11.6-1 5.4 low Not Available [facility] (Lab) [address] [facility], [place], [address], 06/16/2025 12:51:38 06/15/20 25 06/15/2025 GTT - GESTA RAMANA L SCREE N, ACOG OB glucose, 1 hour screen 117 mg/dL 70-135 Not Available [facility] (Lab) [address] [facility], [place], [address], 06/16/2025 12:51:38 06/15/2006/15/2025 HIV 1/2 ANTIG EN/AN TIBOD Y, REFLE X CONFI RMATI ON HIV antigen/anti body Nonrea ctive nonrea ctive HIV-1 antig en and HIV-1 /HIV- 2 antib odies were not detec gordo. No labor atory evide nce of HIV infec tion. Not Available [facility] (Lab) [address] [facility], [place], [address], 06/16/2025 12:51:39 06/15/2006/15/2025 RPR SCREE N, REFLE X TITER /CONF IRMAT ION RPR qualitative Nonrea ctive nonrea ctive Not Available [facility] (Lab) [address] [facility], [place], [address], 06/16/2025 12:51:40 07/13/2007/13/2025 US, obste tric, follo w-up No observ ation record ed. [email or web address] [facility] [address], [place], [address], 07/13/2025 18:01:23 07/13/20 25 07/13/2025 US, obste tric, follo w-up No observ ation record ed. [facility] [address], [place], [address], 07/13/2025 19:53:12 Result Notes None recorded. Problems Name Problem SNOMED Code Status Onset Date Resolution Date Notes Provider Name and Address Organization Details Recorded Time Asthma 759048319 Completed mild-exe rcise-in duced Nadeem Boudreaux [facility] 3 11:02:05 Increase d lactatio n 30600893 Completed Nadeem Boudreaux [facility] 3 11:02:05 Pregnanc y 43530042 Completed 202208/14/2023 Tisha Sifuentes [facility] 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 3 11:02:05 Anemia 647545049 Completed 2022 bid slowfe Nadeem Boudreaux [facility] 3 11:02:05 Pregnanc y 17917671 Completed 202309/24/2024 Tisha Sifuentes [facility] 5 17:22:27 Anemia 006339191 Completed 2023 iron infusion s per SP Nadeem Boudreaux [facility] 4 11:39:43 Pregnanc y 26207575 Active 2024 Tisha Sifuentes [facility] 5 17:22:27 Iron deficien cy anemia 59685398 Active 2024 Darya baker g iron infusion . 07/01/25 order faxed 07/01 (IV iron infusion s previous pregnanc y) Darya Baeza [facility] 5 14:25:40 Aicha trujillo 338475666 Active 2024 tubal papers signed 07/27 JOSÉ LOOMIS MD [address], [place], [address], [facility] 5 15:13:20 Problem Notes None recorded. Procedures Surgical History Date Name Laterality Status Provider Name and Address Organization Details Recorded Time 09/30/19 21 Date of Last Colonoscopy completed [facility] 01/10/2023 12:29:01 09/30/19 21 endoscopy completed [facility] 01/10/2023 12:30:43 09/30/19 21 Colonoscopy completed [facility] 01/10/2023 12:30:50 Imaging Results [...] n swelling Not available Not available 01/10/2023 04191 [id number] SNOMED Radha Pipe lomeli, [facility] 3 11:53:58 Medications Name Sig [...] completed Not Available Not Available Not Available .530 (28) 1.5 mg-30 mcg (21)/75 mg (7) tablet TAKE 1 TABLET BY MOUTH EVERY DAY 02/07 completed Not Available Not Available Not Available active Not Available Not Avai lable Not Available Jerilyn 0.25 mg-0.035 mg tablet TAKE 1 TABLET BY MOUTH EVERY DAY 05/12 completed Not Available Not Available Not Available Vitals Date Recorded Body height Body mass index (BMI) Body weight Systolic And Diastolic Provider Name and Address Organization Details Last Updated DateTime 07/13/2025 167.64 cm 34.5 kg/m2 16056.77 g 109/73 mm[Hg] Tisha Sifuentes [facility] 07/13/2025 17:49:36 Social History Question Answer Notes LastModified by Organizat ion Details LastModified Time Tobacco Smoking Status Never Smoker Catia Mcmillan armani, [facility] 07/15/2023 14:04:09 Are You Blind [...] Has Tobacco Cessation Counseling Been Provided? No [email or web address] Information not available 07/15/2023 Have You Used IV Drugs? No Information not available 05/14/2023 Do You Have Difficulty Walking Or Climbing Stairs? No [email or web address] Information not available 07/15/2023 Sex: Unknown Functional Status Question Answer Note LastModified by Organizat ion Details LastModified Time Do you use any illicit or recreational drugs? Yes Information not available 05/14/2023 Do you or have you ever used any other forms of tobacco or nicotine? Yes [email or web address] Information not available 07/15/2023 What is your level of alcohol consumption? None Information not available 05/14/2023 Are you currently employed? No [email or web address] Information not available 10/13/2024 Are you able to walk independently without assistance or assistive devices? [email or web address] Information not available 05/14/2023 Are you able to care for yourself independently? Yes [email or web address] Information not available 07/15/2023 Do you have difficulty dressing, bathing, grooming, or toileting? No [email or web address] Information not available 07/15/2023 Do you or have you ever used e-cigarettes or vape? Current user of electronic cigarettes [email or web address] Information not available 07/15/2023 What is your exercise level? Occasional Information not available 05/14/2023 Mental Status Question Answer Note LastModified by Organization D etails LastModified Time Do you feel stressed (tense, restless, nervous, or anxious, or unable to sleep at night)? [id number] Information not available 05/14/2023 Family History Relationship Description Onset Age of this Age Resolved Age Notes LastModified by Organization Details LastModified Time Paternal Aunt Malignant neoplasm of breast [email or web address] Not available 01/10 12:29:46 Paternal Aunt Malignant neoplasm of breast [email or web address] Not available 2023 14:30:13 Medical History Condition [...] ICD10 Code Diagnosis IMO Codes Diagnosis Note [id number] JOSÉ LOOMIS MD [facility] [address] [address] 06/15/2025 14:07:20 06/15/2025 15:15:28 Finding of pattern of 892060659 O09.899 19067686 - growth US at 32 weeks Gestation period, 27 weeks 07954565 Z3A.27 4874161 - continue PNV [id number] Jaspal Nuñez MD [facility] [address],[place] [address] 07/01/2025 12:54:47 07/01/2025 13:22:35 care status 626070433 Z34.83 [id number] JOSÉ LOOMIS MD [facility] [address],[place] [address] 07/13/2025 17:03:04 07/13/2025 17:48:06 High risk 97955107 O09.33 O09.893 Z3A.31 2896288 [id number] JOSÉ LOOMIS MD [facility] [address],[place] [address] 07/13/2025 17:03:22 07/14/2025 08:25:54 Iron deficiency anemia 66501083 D50.9 41528007 - starting Fe infusions tomorrow Finding of pattern of 743486433 O09.899 75762545 - growth US wnl, EFW 41% at 32 weeks Gestation period, 31 weeks 84999789 Z3A.31 0232459 - continue [facility] Health Concerns Section Related Observation LastModified by Organization Detai ls LastModified Time None Recorded Concern Status LastModified by Organization Details LastModified Time None Recorded Payers Encounter Date Sequence Insurance Name Policy Number Policy Paz Covered Member ID Paz Member ID Guarantor Name 07/13/2025 1 [facility] (MEDICAID HMO) [id number] [facility] [id number] [facility] Notes Date Note Type Note Provider Name and Address Organization Details Recorded Time 07/13/2025 text/html Generic HPI TemplateReported by Patient JOSÉ LOOMIS MD [address], [place], [address], [facility] 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 07/01/25 order faxed 07/01 (IV iron infusions previous ) Sterilization requested 07/29/2025 [id number] tubal papers signed 07/27 Christopher Calculation [...] Type Weight in lbs Pre/Post Dialysis Refused 218.499468881749 BP Diastolic BP Location Tested BP Systolic BP Type 74 L arm 104 sitting Fetus Heart Rate Present A Present Fetus Movement A Yes Comments Patient presents to [facility] care. Hx of short interval x2 [...] Type Weight in lbs Pre/Post Dialysis Refused 218.682314199625 BP Diastolic BP Location Tested BP Systolic [...] Weight in lbs Pre/Post Dialysis Refused Weight 217.731212420989 BP Diastolic BP Location Tested BP Systolic [...] Weight in lbs Pre/Post Dialysis Refused Weight 214.443718704977 BP Diastolic BP Location Tested BP Systolic [...] Type Weight in lbs Pre/Post Dialysis Refused 213.716288487432 BP Diastolic BP Location Tested BP Systolic [...] Weight in lbs Pre/Post Dialysis Refused Weight 214.116722818488 BP Diastolic BP Location Tested BP Systolic [...] Weight in lbs Pre/Post Dialysis Refused Weight 212.369559010948 BP Diastolic BP Location Tested BP Systolic [...] Weight in lbs Pre/Post Dialysis Refused Weight 210.629516470701 BP Diastolic BP Location Tested BP Systolic [...]
--- OUTSIDE RECORDS SUMMARY | 2025-09-03 00:07 | XMS_ITS | Continuity of Care Document ---
Author Organization [facility] Address [address] [place] [address] Assessment No assessment recorded. Plan of Treatment [...] [facility] [address], [address], [address], 05/18/2025 02:31:53 05/18/20 25 05/18/2025 [UNIT Y] ANEUP LOIDY NIPT 22Q11.2 microdeletio n LOW RISK <1 in 10,000 normal Not Available [facility] [address], [address], [address], 05/18/2025 02:31:53 05/18/20 25 05/18/2025 [UNIT Y] ANEUP LOIDY NIPT sex chromosome aneuploidy NOT DETECT ED normal Not Available [facility] [address], [address] [address], [address], 05/18/2025 02:31:53 05/18/20 25 05/18/2025 [UNIT Y] ANEUP LOIDY NIPT monosomy X LOW RISK <1 in 10,000 normal Not Available [facility] [address], [place], [address], 05/18/2025 02:31:53 05/18/20 25 05/18/2025 [UNIT Y] ANEUP LOIDY NIPT trisomy 13 LOW RISK <1 in 10,000 normal Not Available [facility] [address], [place], [address], 05/18/2025 02:31:53 05/18/20 25 05/18/2025 [UNIT Y] ANEUP LOIDY NIPT trisomy 18 LOW RISK <1 in 10,000 normal Not Available [facility] [address], [place], [address], 05/18/2025 02:31:53 05/18/20 25 05/18/2025 [UNIT Y] ANEUP LOIDY NIPT trisomy 21 LOW RISK <1 in 10,000 normal Not Available [facility] [address], [place], [address], 05/18/2025 02:31:53 05/18/20 25 05/18/2025 [UNIT Y] ANEUP LOIDY NIPT sex MALE normal Not Available [facility] [address], [place], [address], 05/18/2025 02:31:53 05/18/20 25 05/18/2025 [UNIT Y] ANEUP LOIDY NIPT gestation SINGLE TON normal Not Available [facility] [address], [address] [address], [address], 05/18/2025 02:31:53 05/18/20 25 05/18/2025 [UNIT Y] ANEUP LOIDY NIPT for detailed report, see pdf See PDF normal Not Available [facility] [address], [place], [address], 05/18/2025 02:31:53 05/12/2005/12/2025 HIV 1/2 ANTIG EN/AN TIBOD Y, REFLE X CONFI RMATI ON HIV antigen/anti body Nonrea ctive nonrea ctive HIV-1 antig en and HIV-1 /HIV- 2 antib odies were not detec gordo. No labor atory evide nce of HIV infec tion. Not Available [facility] (Lab) [address], [place], [address], 05/13/2025 12:17:00 05/12/2005/12/2025 HEPAT ITIS C ANTIB LAMONTE SCREE N, REFLE X TO CONFI RMATI ON hepatitis C antibody Non-re active non-re active Antib odies to HCV Not Detec gordo, does not exclu de the possi bilit y of expos ure to HCV. Not Available [facility] (Lab) [address], [place], [address], 05/13/2025 12:17:01 05/12/2005/12/2025 HEPAT ITIS B SURFA CE ANTIG EN hepatitis B surface antigen Non-re active non-re active This assay was perfo rmed using [employer] ratio n reage nts and test kits. Value s obtai jefry with other assay metho ds or kits canno t be used inter richmond eably . Not Available [facility] (Lab) [address], [place], [address], 05/13/2025 12:17:01 05/12/2005/12/2025 TSH, REFLE X FREE T4 TSH 1.94 uIU/m L 0.30-5 .33 Not Available [facility] (Lab) [address], [place], [address], 05/13/2025 12:17:02 05/12/2005/12/2025 RUBEL LA IGG ANTIB LAMONTE, QUANT rubella antibodies, IgG Reacti ve reacti ve Not Available [facility] (Lab) [address], [place], [address], 05/13/2025 12:17:02 05/12/2005/12/2025 RUBEL LA IGG ANTIB LAMONTE, QUANT rubella antibodies, IgG quant 113.7 IU/mL >=10 Non-r eacti ve (Non- Immun e) <10 IU/mL React deisi (Immu ne) > or = 10 IU/mL Not Available [facility] (Lab) [address], [place], [address], 05/13/2025 12:17:02 05/12/2005/12/2025 CBC W/DIF F WBC 15.1 10'3/ uL 3.5-10 .5 high Not Available [facility] (Lab) [address], [place], [address], 05/13/2025 12:17:03 05/12/20 25 05/12/2025 CBC W/DIF F RBC 3.60 10'6/ uL (based on docume nted legal sex) 3.80-5 .20 low Not Available [facility] (Lab) [address], [place], [address], 05/13/2025 12:17:03 05/12/20 25 05/12/2025 CBC W/DIF F HGB 10.5 g/dL (based on docume nted legal sex) 11.6-1 5.4 low Not Available [facility] (Lab) [address], [place], [address], 05/13/2025 12:17:03 05/12/2005/12/2025 CBC W/DIF F HCT 32.2 % (based on docume nted legal sex) 34.0-4 5.0 low Not Available [facility] (Lab) [address], [place], [address], 05/13/2025 12:17:03 05/12/2005/12/2025 CBC W/DIF F MCV 89.4 fL 80.0-9 9.0 Not Available [facility] (Lab) [address], [place], [address], 05/13/2025 12:17:03 05/12/2005/12/2025 CBC W/DIF F MCH 29.2 pg 27.0-3 4.0 Not Available [facility] (Lab) [address], [place], [address], 05/13/2025 12:17:03 05/12/20 25 05/12/2025 CBC W/DIF F MCHC 32.6 g/dL 32.0-3 5.5 Not Available [facility] (Lab) [address], [place], [address], 05/13/2025 12:17:03 05/12/2005/12/2025 CBC W/DIF F RDW 14.6 % 11.0-1 5.0 Not Available [facility] (Lab) [address], [place], [address], 05/13/2025 12:17:03 05/12/20 25 05/12/2025 CBC W/DIF F plt 296 10'3/ uL 150-40 0 Not Available [facility] (Lab) [address], [place], [address], 05/13/2025 12:17:03 05/12/2005/12/2025 CBC W/DIF F MPV 11.1 fL 8.8-12 .1 Not Available [facility] (Lab) [address], [place], [address], 05/13/2025 12:17:03 05/12/20 25 05/12/2025 CBC W/DIF F NRBC's 0.0 % 0.0 Not Available [facility] (Lab) [address] [place], [address], 05/13/2025 12:17:03 08/13/20 25 05/12/2025 CBC W/DIF F absolute NRBCs 0.0 10'3/ uL no refere nce range establ ished Not Available [facility] (Lab) [address], [place], [address], 05/13/2025 12:17:03 05/12/20 25 05/12/2025 CBC W/DIF F neutrophils 74.6 % 34.0-7 3.0 high Not Available [facility] (Lab) [address], [place], [address], 05/13/2025 12:17:03 05/12/20 25 05/12/2025 CBC W/DIF F lymphocytes 17.1 % 15.0-5 0.0 Not Available [facility] (Lab) [address] [facility] [address], [place], [address], 05/13/2025 12:17:03 05/12/20 25 05/12/2025 CBC W/DIF F monocytes 5.8 % 1.0-15 .0 Not Available [facility] (Lab) [address], [place], [address], 05/13/2025 12:17:03 05/12/20 25 05/12/2025 CBC W/DIF F eosinophils 0.8 % 0.0-8. 0 Not Available [facility] (Lab) [address], [place], [address], 05/13/2025 12:17:03 05/12/20 25 05/12/2025 CBC W/DIF F basophils 0.3 % 0.0-2. 0 Not Available [facility] (Lab) [address] [place], [address], 05/13/2025 12:17:03 05/12/20 25 05/12/2025 CBC W/DIF [...] separ ately if prese nt. Not Available [facility] (Lab) [address] [facility] [address], [place], [address], 05/13/2025 12:17:03 05/12/20 25 05/12/2025 CBC W/DIF F absolute neutrophils 11.3 10'3/ uL 1.5-8. 0 high Not Available [facility] (Lab) [address] [facility], [place], [address], 05/13/2025 12:17:03 05/12/20 25 05/12/2025 CBC W/DIF F absolute lymphocytes 2.6 10'3/ uL 1.0-4. 0 Not Available [facility] (Lab) [address] [facility], [place], [address], 05/13/2025 12:17:03 05/12/20 25 05/12/2025 CBC W/DIF F absolute monocytes 0.9 10'3/ uL 0.2-1. 0 Not Available [facility] (Lab) [address] [facility], [place], [address], 05/13/2025 12:17:03 05/12/20 25 05/12/2025 CBC W/DIF F absolute eosinophils 0.1 10'3/ uL 0.0-0. 6 Not Available [facility] (Lab) [address] [facility], [place], [address], 05/13/2025 12:17:03 05/12/20 25 05/12/2025 CBC W/DIF F absolute basophils 0.0 10'3/ uL 0.0-0. 3 Not Available [facility] (Lab) [address] [facility], [place], [address], 05/13/2025 12:17:03 05/12/20 25 05/12/2025 CBC W/DIF [...] lizama book. nm.or g/gen derx Not Available [facility] (Lab) [address], [place], [address], 05/13/2025 12:17:03 05/12/2005/12/2025 TYPE/ RH/SC REEN ABO/Rh type O POS Not Available [facility] (Lab) [address], [place], [address], 05/13/2025 12:17:03 05/12/20 25 05/12/2025 TYPE/ RH/SC REEN antibody screen NEG Not Available [facility] (Lab) [address], [place], [address], 05/13/2025 12:17:03 05/12/20 25 05/12/2025 TYPE/ RH/SC REEN exp date 2024 23:59 Not Available [facility] (Lab) [address] [place], [address], 05/13/2025 12:17:03 05/12/2005/12/2025 HEMOG LOBIN A1C hemoglobin [...] >8.0% Actio n sugge sted Not Available [facility] (Lab) [address], [place], [address], 05/13/2025 12:17:04 05/12/20 25 05/12/2025 RPR SCREE N, REFLE X TITER /CONF IRMAT ION RPR qualitative Nonrea ctive nonrea ctive Not Available [facility] (Lab) [address], [place], [address], 05/13/2025 12:17:04 05/12/20 25 05/12/2025 CT/GC AND TRICH OMONA S VAGIN ZOHAIB (RRNA ), URINE chlamydia trachomatis, PCR Negati ve negati ve Not Available [facility] (Lab) [address], [place], [address], 05/13/2025 15:07:55 05/12/20 25 05/12/2025 CT/GC AND TRICH OMONA S VAGIN ZOHAIB (RRNA ), URINE neisseria gonorrhoeae, PCR Negati ve negati ve Not Available [facility] (Lab) [address], [place], [address], 05/13/2025 15:07:55 05/12/20 25 05/12/2025 CT/GC AND TRICH OMONA S VAGIN ZOHAIB (RRNA ), URINE trichomonas vaginalis ribosomal RNA (rrna) Negati ve negati ve Not Available [facility] (Lab) [address], [place], [address], 05/13/2025 15:07:55 06/15/20 25 06/15/2025 HEMAT OCRIT (HCT) HCT 29.3 % (based on docume nted legal sex) 34.0-4 5.0 low Not Available [facility] (Lab) [address], [place], [address], 06/16/2025 12:51:37 06/15/20 25 06/15/2025 HEMOG LOBIN (HGB) HGB 9.2 g/dL (based on docume nted legal sex) 11.6-1 5.4 low Not Available [facility] (Lab) [address] [place], [address], 06/16/2025 12:51:38 06/15/20 25 06/15/2025 GTT - GESTA RAMANA L SCREE N, ACOG OB glucose, 1 hour screen 117 mg/dL 70-135 Not Available [facility] (Lab) [address] [place], [address], 06/16/2025 12:51:38 06/15/20 25 06/15/2025 HIV 1/2 ANTIG EN/AN TIBOD Y, REFLE X CONFI RMATI ON HIV antigen/anti body Nonrea ctive nonrea ctive HIV-1 antig en and HIV-1 /HIV- 2 antib odies were not detec gordo. No labor atory evide nce of HIV infec tion. Not Available [facility] (Lab) [address] [place], [address], 06/16/2025 12:51:39 06/15/20 25 06/15/2025 RPR SCREE N, REFLE X TITER /CONF IRMAT ION RPR qualitative Nonrea ctive nonrea ctive Not Available [facility] (Lab) [address] [place], [address], 06/16/2025 12:51:40 08/11/20 25 08/11/2025 CULTU RE: GROUP B STREP SCREE N, REFLE X SUSCE PTIBI LITY result report SEE RESULT S BELOW Test: Cultu re: Group B Strep , Refle x Susce ptibi lity ([facility]/ [facility] ) Speci men Sourc e: Vagin a/Rec edilberto Speci men Type: Vagin al/Re ctal Speci men Date: 08/11 1702 Resul t Date: 08/15 1418 Resul t Statu s: Final resul t Abnor mal: No Resul ting Lab: [facility] [address] [facility] [address] Tel: CULTU RE ----- ----- ----- --- No Group B strep isola gordo at 2 days (nilda ctive broth sophie patel t) Not Available [facility] (Lab) [address], [place], [address], 08/15/2025 15:21:16 07/13/2007/13/2025 US, obste tric, follo w-up No observ ation record ed. [email or web address] [place] [address], [place], [address], 07/13/2025 18:01:23 07/13/2007/13/2025 US, obste tric, follo w-up No observ ation record ed. [email or web address] [place] [address] [place] [address], [place], [address], 07/13/2025 19:53:12 Result Notes None recorded. Problems Name Problem SNOMED Code Status Onset Date Resolution Date Notes Provider Name and Address Organization Details Recorded Time Asthma 003072929 Completed mild-exe rcise-in duced Nadeem Boudreaux [facility] 3 11:02:05 Increase d lactatio n 79727883 Completed Nadeem Boudreaux [facility] 3 11:02:05 Pregnanc y 98881926 Completed 202208/14/2023 Tisha Sifuentes [facility] 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 3 11:02:05 Anemia 988867559 Completed 2022 bid slowfe Nadeem Boudreaux [facility] 3 11:02:05 Pregnanc y 82031052 Completed 202309/24/2024 Tisha Sifuentes [facility] 5 17:22:27 Anemia 240168499 Completed 2023 iron infusion s per SP Nadeem Boudreaux [facility] 4 11:39:43 Pregnanc y 86826953 Active 2024 Tisha Sifuentes [facility] 5 17:22:27 Iron deficien cy anemia 63672260 Active 2024 Darya johnson arrangin g iron infusion . 07/01/25 order faxed 07/01 (IV iron infusion s previous pregnanc y) Darya Baeza [facility] 5 14:25:40 Steriliz ation requeste d [id number] Active 2024 tubal papers signed 07/27 JOSÉ LOOMIS MD [address], [place], [address], [facility] 5 15:13:20 Problem Notes None recorded. Procedures Surgical History Date Name Laterality Status Provider Name and Address Organization Details Recorded Time 09/30/19 21 Date of Last [facility] 01/10/2023 12:29:01 09/30/19 21 [facility] 01/10/2023 12:30:43 09/30/19 21 [facility] 01/10/2023 12:30:50 Imaging Results None recorded. Procedure Notes None recorded. Medical Equipment None Reported. Allergies Allergen ID Allergen Name Allergen Category Reaction Reaction Severity Criticality Documentation Date Start Date Code Code System Note Provider Name and Address Organization Details Recorded Time Substance with sulfonami de structure and antibacte rial mechanism of action (substanc e) medicatio n swelling Not available Not available 01/10/2023 17591 8003 SNOMED Radha Betancur [facility] 3 11:53:58 Medications Name Sig Start [...] completed Not Available Not Available Not Available .5 (28) 1.5 mg-30 mcg (21)/75 mg (7) [...] and Address Organization Details Last Updated DateTime 08/25/2025 167.64 cm 33.9 kg/m2 17741.4 g 120/82 mm[Hg] Cyndy Lindsayjena [facility] 08/25/2025 10:47:27 Social History Question Answer Notes LastModified by Organizat ion Details LastModified Time Tobacco Smoking Status Never Smoker Catia Mcmillan armani, [facility] 07/15/2023 14:04:09 Are You Blind Or [...] available 05/14/2023 Are You Sexually Active? Yes [email or web address] Information not available 10/13/2024 Do You Have Smoke And Carbon Monoxide Detectors In Your Home? Yes Information not available 05/14/2023 At What Age Did You Start Smoking Tobacco? 11 Information not available 05/14/2023 How Much Tobacco Do You Smoke? No Information not available 05/14/2023 Do You Use Sunscreen Routinely? Yes Information not available 05/14/2023 Has Tobacco Cessation Counseling Been Provided? No Information not available 07/15/2023 Have You Used IV Drugs? No Information not available 05/14/2023 Do You Have Difficulty Walking Or Climbing Stairs? No [email or web address] Information not available 07/15/2023 Sex: Unknown Functional Status Question Answer Note LastModified by Organizat ion Details LastModified Time Do you use any illicit or recreational drugs? Yes Information not available 05/14/2023 Do you or have you ever used any other forms of tobacco or nicotine? Yes [email or web address] Information not available 07/15/2023 What is your level of alcohol consumption? None Information not available 05/14/2023 Are you currently employed? No [email or web address] Information not available 10/13/2024 Are you able to walk independently without assistance or assistive devices? [email or web address] Information not available 05/14/2023 Are you able to care for yourself independently? Yes [email or web address] Information not available 07/15/2023 Do you have difficulty dressing, bathing, grooming, or toileting? No [email or web address] Information not available 07/15/2023 Do you or have you ever used e-cigarettes or vape? Current user of electronic cigarettes [email or web address] Information not available 07/15/2023 What is your exercise level? Occasional Information not available 05/14/2023 Mental Status Question Answer Note LastModified by Organization D etails LastModified Time Do you feel stressed (tense, restless, nervous, or anxious, or unable to sleep at night)? [id number] Information not available 05/14/2023 Family History Relationship Description Onset Age of this Age Resolved Age Notes LastModified by Organization Details LastModified Time Paternal Aunt Malignant neoplasm of breast [email or web address] Not available 01/10 12:29:46 Paternal Aunt Malignant neoplasm of breast [email or web address] Not available 2023 14:30:13 Medical History Condition [...] ICD10 Code Diagnosis IMO Codes Diagnosis Note [id number] JOSÉ LOOMIS MD [place] [address],[facility] [address] 07/27/2025 12:26:45 07/29/2025 15:15:39 Sterilization requested [id number] Z30.2 [id number] - patient desires permanent sterilizat ion- discussed risks, benefits, and alternativ es of bilateral salpingect jose, including risks of bleeding, infection and injury to surroundin g organs. Also discussed alternativ e contracept deisi options including partner vasectomy and patient declines.- tubal papers signed Gestation period, 34 weeks 28008277 Z3A.34 1194485 - continue PNV Iron defic iency anemia 38530007 D50.9 23357490 - continuing Fe infusions tomorrow [id number] Jaspal Nuñez MD [place] [address] [address] 08/11/2025 16:54:13 08/12/2025 08:48:31 [id number] JOSÉ LOOMIS MD [place] [address] [address] 08/20/2025 16:38:58 08/20/2025 17:03:51 Iron deficiency anemia 03664715 D50.9 60527905 Gestation period, 37 weeks 49065267 Z3A.37 8663204 - continue PNV [id number] JOSÉ LOOMIS MD [place] [address] [address] 08/25/2025 10:34:46 08/25/2025 11:10:43 Sterilization requested 173220086 Z30.2 02289255 - patient desires permanent sterilizat ion- discussed risks, benefits, and alternativ es of bilateral salpingect jose, including risks of bleeding, infection and injury to surroundin g organs. Also discussed alternativ e contracept deisi options including partner vasectomy and patient declines.- tubal papers signed Iron defic iency anemia 03241911 D50.9 44802087 - s/p Fe infusions Gestation period, 38 weeks 83441685 Z3A.38 2258998 - continue PNV Health Concerns Section Related Observation LastModified by Organization Detai ls LastModified Time None Recorded Concern Status LastModified by Organization Details LastModified Time None Recorded Payers Encounter Date Sequence Insurance Name Policy Number Policy Paz Covered Member ID Paz Member ID Guarantor Name 08/25/2025 1 [facility] (MEDICAID HMO) [id number] [facility] [id number] [facility] Notes Date Note Type Note Provider Name and Address Organization Details Recorded Time 08/25/2025 text/html Generic HPI TemplateReported by Patient JOSÉ LOOMIS MD [address], [place], [address], [facility] 08/25/2025 11:06:04 OBGyn Episode Ob Episode Information Episode Created Date Number of Fetuses Patient Bloodtype Patient rh Status Prepregnancy Weight lbs Domestic Partner Domestic Partner Phone Father Name Grated Cheese Maker Status 05/12/20 25 1 O Positive 215 OPEN Fetus Data First Name Last Name Admitted to NICU Weight (g) Sex Living Outcome Pediatric Complications Fetus ID Race Codes Race Delivery Type [id number] Problems Problem Notes iron infusions in previous p regnancy Problem Name Start Date End Date Resolution Snomed Code Not e Iron deficiency anemia 07/01/2025 [id number] 02 Darya is arranging iron infusion. 07/01/25 order faxed 07/01 (IV iron infusions previous ) Sterilization requested 07/29/2025 [id number] tubal papers signed 07/27 Christopher Calculation [...] Type Weight in lbs Pre/Post Dialysis Refused 218.508331912963 BP Diastolic BP Location Tested BP Systolic BP Type 74 L arm 104 sitting Fetus Heart Rate Present A Present Fetus Movement A Yes Comments Patient presents to [facility]. Hx of short interval x2 [...] Type Weight in lbs Pre/Post Dialysis Refused 218.995601702092 BP Diastolic BP Location Tested BP Systolic [...] Weight in lbs Pre/Post Dialysis Refused Weight 217.085560612373 BP Diastolic BP Location Tested BP Systolic BP Type 74 L arm 107 sitting Fetus Heart Rate Present A 154 Present Fetus Movement A Yes Comments marked anemia, Adrya to arr mandie iron infusion,no complaints, no [...] Weight in lbs Pre/Post Dialysis Refused Weight 214.540620033203 BP Diastolic BP Location Tested BP Systolic [...] Type Weight in lbs Pre/Post Dialysis Refused 213.851866683883 BP Diastolic BP Location Tested BP Systolic [...] Weight in lbs Pre/Post Dialysis Refused Weight 214.834455918493 BP Diastolic BP Location Tested BP Systolic [...] Weight in lbs Pre/Post Dialysis Refused Weight 212.001078182077 BP Diastolic BP Location Tested BP Systolic [...] Weight in lbs Pre/Post Dialysis Refused Weight 210.360381949589 BP Diastolic BP Location Tested BP Systolic [...]
--- OUTSIDE RECORDS SUMMARY | 2025-09-03 00:07 | XMS_ITS | Data Portability ---
Author Organization [facility] Address [address] [place] [address] [place] [address] Assessment Encounter Date Assessment Date Assessment LastModified by Organization Details LastModified Time 08/11/2025 08/11/2025 Patient is ___weeks . Discussed plan. [email or web address] Not available 08/11/2025 16:59:12 Plan of Treatment Reminders Order Date Submit Date Provider Last Modified By Organization Details Last Modified Time Details Appointments INDUCTION 2024 12:01A Alma LOOMIS MD Not available Not available Not available Lab None recorded. Referral None recorded. Procedures None recorded. Surgeries None recorded. Imaging US, obstetric , follow-up 2024 025 [email or web address] [facility] [address], [place], [address], 07/13/2025 19:45:15 Medication Orders None recorded. Patient TargetsNo targets recorded. Patient InstructionsNo instructions recorded. Reason for Referral None Reported. Results Created Date Observation Date Name Description Value Unit Range Abnormal Flag Note LastModifiedBy Organization Detail LastModifiedTime 06/15/2006/15/2025 HEMAT OCRIT (HCT) HCT 29.3 % (based on docume nted legal sex) 34.0-4 5.0 low Not Available [facility] (Lab) [address], [place], [address], 06/16/2025 12:51:37 06/15/2006/15/2025 HEMOG LOBIN (HGB) HGB 9.2 g/dL (based on docume nted legal sex) 11.6-1 5.4 low Not Available [facility] (Lab) [address], [place], [address], 06/16/2025 12:51:38 06/15/20 25 06/15/2025 GTT - GESTA RAMANA L SCREE N, ACOG OB glucose, 1 hour screen 117 mg/dL 70-135 Not Available [facility] (Lab) [address], [place], [address], 06/16/2025 12:51:38 06/15/20 25 06/15/2025 HIV 1/2 ANTIG EN/AN TIBOD Y, REFLE X CONFI RMATI ON HIV antigen/anti body Nonrea ctive nonrea ctive HIV-1 antig en and HIV-1 /HIV- 2 antib odies were not detec gordo. No labor atory evide nce of HIV infec tion. Not Available [facility] (Lab) [address], [place], [address], 06/16/2025 12:51:39 06/15/20 25 06/15/2025 RPR SCREE N, REFLE X TITER /CONF IRMAT ION RPR qualitative Nonrea ctive nonrea ctive Not Available [facility] (Lab) [address] [place], [address], 06/16/2025 12:51:40 08/11/20 25 08/11/2025 CULTU RE: [...] Resul ting Lab: [facility] [address] [facility] [address] Tel: [phone] CULTU RE ----- ----- ----- --- No Group B strep isola gordo at 2 days (nilda ctive broth sophie mckeon) Not Available [facility] (Lab) [address], [place], [address], 08/15/2025 15:21:16 07/13/2007/13/2025 US, obste tric, follo w-up No observ ation record ed. [email or web address] [facility] [address], [place], [address], 07/13/2025 18:01:23 07/13/2007/13/2025 US, obste tric, follo w-up No observ ation record ed. [email or web address] [facility] [address] [place] [address], [place], [address], 07/13/2025 19:53:12 Result Notes None recorded. Problems Name Problem SNOMED Code Status Onset Date Resolution Date Notes Provider Name and Address Organization Details Recorded Time Asthma 798321999 Completed mild-exe rcise-in duced Nadeem Boudreaux [facility] 3 11:02:05 Increase d lactatio n 49669949 Completed Nadeem lomlei [facility] 3 11:02:05 Pregnanc y 93755581 Completed 202208/14/2023 Tisha lomeli, [facility] 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 3 11:02:05 Anemia 156507990 Completed 2022 bid slowfe Nadeem Boudreaux null, [facility] 3 11:02:05 Pregnanc y 82633490 Completed 202309/24/2024 Tisha lomeli [facility] 5 17:22:27 Anemia 671489918 Completed 2023 iron infusion s per SP Nadeem Boudreaux [facility] 4 11:39:43 Pregnanc y 01416321 Active 2024 Tisha Sifuentes [facility] 5 17:22:27 Iron deficien cy anemia 86234451 Active 2024 Darya johnson arrangin g iron infusion . 07/01/25 order faxed 07/01 (IV iron infusion s previous pregnanc y) Darya Baeza [facility], [facility] 5 14:25:40 Steriliz ation requeste d [id number] Active 2024 tubal papers signed 07/27 JOSÉ LOOMIS MD [address], [place], [address], [facility] 5 15:13:20 Problem Notes None recorded. Procedures Surgical History Date Name Laterality Status Provider Name and Address Organization Details Recorded Time 09/30/19 21 Date of Last Colonoscopy completed Brigida [facility] 01/10/2023 12:29:01 09/30/19 21 [facility] 01/10/2023 12:30:43 09/30/19 21 Colonoscopy completed Brigida [facility] 01/10/2023 12:30:50 Imaging Results None recorded. Procedure Notes None recorded. Medical Equipment None Reported. Allergies Allergen ID Allergen Name Allergen Category Reaction Reaction Severity Criticality Documentation Date Start Date Code Code System Note Provider Name and Address Organization Details Recorded Time Substance with sulfonami de structure and antibacte rial mechanism of action (substanc e) medicatio n swelling Not available Not available 01/10/2023 47922 8003 SNOMED Radha Betancur [facility] 3 11:53:58 Medications Name Sig Start [...] Updated DateTime 07/13/2025 167.64 cm 34.5 kg/m2 08198.77 g 109/73 mm[Hg] Tisha Maria [facility] 07/13/2025 17:49:36 Date Recorded Body weight Systolic And Diastolic Provider Name and Address Organization Details Last Updated DateTime 07/27/2025 45162.94227 g 116/76 mm[Hg] [facility] 07/27/2025 12:46:53 Date Recorded Body height Body mass index (BMI) Body weight Systolic And Diastolic Provider Name and Address Organization Details Last Updated DateTime 08/11/2025 167.64 cm 34.7 kg/m2 75014.64 g 111/76 mm[Hg] Jeaneth Beltrán [facility] 08/11/2025 17:08:35 Date Recorded Body height Body mass index (BMI) Body weight Systolic And Diastolic Provider Name and Address Organization Details Last Updated DateTime 08/20/2025 167.64 cm 34.2 kg/m2 66292.58 g 124/87 mm[Hg] Cyndy [facility] 08/20/2025 16:45:44 Date Recorded Body height Body mass index (BMI) Body weight Systolic And Diastolic Provider Name and Address Organization Details Last Updated DateTime 08/25/2025 167.64 cm 33.9 kg/m2 26033.4 g 120/82 mm[Hg] Cyndy [facility] 08/25/2025 10:47:27 Social History Question Answer Notes LastModified by Organizat ion Details LastModified Time Tobacco Smoking Status Never Smoker [facility] 07/15/2023 14:04:09 Are You [...] available 05/14/2023 Are You Sexually Active? Yes [email or web address] Information not available 10/13/2024 Do You Have Smoke And Carbon Monoxide Detectors In Your Home? Yes Information not available 05/14/2023 At What Age Did You Start Smoking Tobacco? 11 Information not available 05/14/2023 How Much Tobacco Do You Smoke? No Information not available 05/14/2023 Do You Use Sunscreen Routinely? Yes Information not available 05/14/2023 Has Tobacco Cessation Counseling Been Provided? No [email or web address] Information not available 07/15/2023 Have You Used IV Drugs? No Information not available 05/14/2023 Do You Have Difficulty Walking Or Climbing Stairs? No [email or web address] Information not available 07/15/2023 Sex: Unknown Functional Status Question Answer Note LastModified by Organizat ion Details LastModified Time Do you use any illicit or recreational drugs? Yes Information not available 05/14/2023 Do you or have you ever used any other forms of tobacco or nicotine? Yes [email or web address] Information not available 07/15/2023 What is your level of alcohol consumption? None Information not available 05/14/2023 Are you currently employed? No [email or web address] Information not available 10/13/2024 Are you able to walk independently without assistance or assistive devices? [email or web address] Information not available 05/14/2023 Are you able to care for yourself independently? Yes Information not available 07/15/2023 Do you have difficulty dressing, bathing, grooming, or toileting? No [email or web address] Information not available 07/15/2023 Do you or have you ever used e-cigarettes or vape? Current user of electronic cigarettes [email or web address] Information not available 07/15/2023 What is your exercise level? Occasional Information not available 05/14/2023 Mental Status Question Answer Note LastModified by Organization D etails LastModified Time Do you feel stressed (tense, restless, nervous, or anxious, or unable to sleep at night)? [id number] Information not available 05/14/2023 Family History Relationship Description Onset Age of this Age Resolved Age Notes LastModified by Organization Details LastModified Time Paternal Aunt Malignant neoplasm of breast [email or web address] Not available 01/10 12:29:46 Paternal Aunt Malignant neoplasm of breast [email or web address] Not available 2023 14:30:13 Medical History Condition [...] ICD10 Code Diagnosis IMO Codes Diagnosis Note [id number] Jaspal Nuñez MD [facility] [address],[place] [address] 01/10/2023 11:33:27 01/10/2023 12:16:33 [id number] [facility] [address],[place] [address] 01/10/2023 11:35:27 01/10/2023 12:45:57 Amenorrhea 96559745 N91.2 Venereal d isease screening 488486805 Z11.3 test positive 901446308 Z32.01 Risk factors addressed: Tobacco Cessation, Safe Sexual Practices, environmen monique, work hazards, travel restrictio ns, seat belt use.Eat a health well balanced diet, avoid alcohol, tobacco, and street drugs.Enga ge in daily low impact exercise, avoid temperatur e extremes, and cat, rodent, and bird feces.Avoi d travel to areas where zika virus is a concern.Of fered cf/sma/nip t. Desires testing at 12 weeks. Handouts given and discussed with patient.Ch ildbirth classes recommende d.New OB sheet given.If previous , counseling . B6 and unisom for nausea.Pt verbalizes that she understand s the importance of above instructio ns.All questions were answered.P atient reminded to have annual well woman examinatio n and address preventati ve healthcare . [id number] Jaspal Nuñez MD [facility] [address],[place] [address] 02/07/2023 11:17:49 02/07/2023 11:53:51 screening 350180440 Z36.82 [id number] Jaspal Nuñez MD [facility] [address],[place] [address] 02/07/2023 11:18:01 02/11/2023 14:19:14 Nausea and vomiting 73929421 R11.2 Routine an tenatal care 791885924 Z34.01 [id number] MD Angel Stephens [address],[place] [address] 03/07/2023 11:01:23 03/07/2023 12:34:37 screening 403703507 Z36.89 Routine an tenatal care 626065209 Z34.01 [id number] MD Angel Stephens [address],[place] [address] 04/11/2023 16:51:35 04/12/2023 15:07:54 screening 047173150 Z36.3 [id number] MD Angel Stephens [address],[place] [address] 04/11/2023 16:52:34 04/12/2023 15:09:13 Routine care 881820916 Z34.01 [id number] MD Angel Stephens [address],[place] [address] 05/14/2023 09:56:35 05/14/2023 11:48:56 screening 984736743 Z36.2 [id number] MD Angel Stephens [address],[place] [address] 05/14/2023 09:57:04 05/14/2023 11:29:07 Routine care 839793954 Z34.01 [id number] MD Angel Stephens [address],[place] [address] 06/06/2023 11:52:11 06/06/2023 12:52:07 Uterine size for dates discrepancy 465892810 O26.843 Z3A.29 [id number] MD Angel Stephens [address],[place] [address] 06/06/2023 11:52:46 06/06/2023 16:05:00 Routine care 693792926 Z34.01 [id number] MD Angel Stephens [address],[place] [address] 06/20/2023 15:54:24 06/21/2023 09:52:39 Routine care 948485235 Z34.01 [id number] Jaspal Nuñez MD [facility] [address],[place] [address] 07/04/2023 14:07:02 07/04/2023 15:01:00 Routine care 544128180 Z34.01 [id number] Jaspal Nuñez MD [facility] [address],[place] [address] 07/04/2023 14:07:21 07/04/2023 14:40:36 Uterine size for dates discrepancy 189005764 O26.843 Z3A.33 [id number] JOSÉ LOOMIS MD [facility] [address],[place] [address] 07/15/2023 14:04:04 07/15/2023 14:49:32 Routine care 876951656 Z34.93 [id number] JOSÉ LOOMIS MD [facility] [address],[place] [address] 07/26/2023 12:23:32 07/26/2023 15:24:43 Routine care 733558952 Z34.93 [id number] JOSÉ LOOMIS MD [facility] [address],[place] [address] 08/02/2023 14:33:20 08/02/2023 15:46:27 Routine care 118767314 Z34.93 [id number] Jaspal Nuñez MD [facility] [address],[place] [address] 08/12/2023 14:45:22 08/12/2023 15:22:10 Routine care 350954643 Z34.01 [id number] MD Angel Stephens [address],[place] [address] 01/23/2024 14:16:49 01/23/2024 15:54:16 Amenorrhea 34885865 N91.2 This patient is a 18-year-ol d female presents for amenorrhea . She has a positive test and a ultrasound reveals a 7 week gestation. Patient has some questions about terminatio n. She has a 5-month-ol d baby. We discussed limits on medical . We discussed [facility] . We talked about care. We spent over 20 minutes face-to-fa ce. More 50% was counseling . [id number] MD Angel Stephens [address],[place] [address] 01/23/2024 14:17:13 01/23/2024 14:59:30 screening 243192031 Z36.87 Z3A.01 [id number] MD Angel Stephens [address],[place] [address] 02/25/2024 17:03:51 02/25/2024 18:20:46 screening 022210676 Z36.82 Z3A.12 [id number] MD Angel GILLIAM [address],[place] [address] 02/26/2024 10:29:22 02/26/2024 11:31:57 screening 842901192 Z36.0 Routine an tenatal care 482081011 Z34.93 [id number] JOSÉ LOOMIS MD [facility] [address],[place] [address] 03/27/2024 14:30:04 03/27/2024 15:21:17 Routine care 474297600 Z34.93 [id number] MD Angel Stephens [address],[place] [address] 04/21/2024 14:01:14 04/21/2024 15:05:59 screening for malformation 764377948 Z36.3 Z3A.20 [id number] MD Angel GILLIAM [address],[place] [address] 04/24/2024 15:32:30 04/24/2024 16:10:49 Routine care 625491261 Z34.93 - continue vitamin [id number] MD Angel Stephens [address],[place] [address] 05/21/2024 12:14:28 05/21/2024 12:52:25 Routine care 512746019 Z34.01 [id number] [facility] [address],[place] [address] 06/19/2024 12:14:29 06/19/2024 12:59:13 Gestation period, 28 weeks 11549990 Z3A.28 continue vitamin [id number] JOSÉ LOOMIS MD [facility] [address],[place] [address] 07/01/2024 12:16:12 07/01/2024 14:18:39 Anemia of 71836280 O99.019 - s/p 2 IV Fe infusions, 1 more remaining- repeat lab next visit Gestation period, 30 weeks 44876577 Z3A.30 - continue PNV [id number] Jaspal Nuñez MD [facility] [address],[place] [address] 07/15/2024 11:53:38 07/15/2024 12:51:19 High risk 73788538 O09.893 Z3A.32 [id number] JOSÉ LOOMIS MD [facility] [address],[place] [address] 07/15/2024 11:53:58 07/15/2024 14:10:34 Anemia of 65341426 O99.019 - s/p 3 IV Fe infusions- repeat labs today Gestation period, 32 weeks 7678413 Z3A.32 - continue PNV [id number] Jaspal Nuñez MD [facility] [address],[place] [address] 07/30/2024 12:30:44 07/30/2024 14:31:20 Routine care 124547101 Z34.01 [id number] JOSÉ LOOMIS MD [facility] [address],[place] [address] 08/19/2024 15:15:57 08/19/2024 15:44:36 Anemia of 99834656 O99.019 - s/p 3 IV Fe infusions- improved HGb to 10.6; continue PO Fe Gestation period, 37 weeks 02621449 Z3A.37 [id number] JOSÉ LOOMIS MD [facility] [address],[place] [address] 08/25/2024 12:50:48 08/25/2024 14:18:30 Anemia of 34800757 O99.019 - s/p 3 IV Fe infusions- improved HGb to 10.6; continue PO Fe Gestation period, 38 weeks 47911641 Z3A.38 - continue PNV- EIL orders sent for 09/01 at midnight (Saturday into Saturday) [id number] JOSÉ LOOMIS MD [facility] [address],[place] [address] 10/13/2024 12:25:08 10/14/2024 10:43:36 Contraception care management 054103552 Z30.9 - patient desires tubal ligation however unable to receive through insurance until age 20- desires OCPs until able to schedule tubal ligation- rx sent- will rtc after 05/27/25 for WWE and pre op appointmen t care 64931137 8 Z39.2 S/p 6 weeks ago here today for a visit.1. Patient recovering well2. Plans to continue formula feeding3. Interested in OCPs for contracept ion at this time. Risks, benefits, and alternativ es reviewed with the patient4. Patient instructed to follow up in 8 months for well woman exam unless need arises prior [id number] Jaspal Nuñez MD [facility] [address],[place] [address] 04/14/2025 12:27:49 04/14/2025 13:29:28 screening 150697727 Z36.87 Z3A.19 5131844375 [id number] [facility] [address],[place] [address] 04/14/2025 12:28:41 04/14/2025 13:42:45 Amenorrhea 23631370 N91.2 79068 +UPT20 weeks gestationl abs with nipt todaypap not rec due to agef/u 12 week new ob/anatomy in [address] loomis [id number] JOSÉ LOOMIS MD [facility] [address],[place] [address] 04/27/2025 15:07:18 04/27/2025 16:23:40 Ultrasound scan - obstetric 825812326 Z36.3 O09.32 Z3A.20 81723 [id number] JOSÉ LOOMIS MD [facility] [address],[place] [address] 05/12/2025 16:52:52 05/12/2025 17:56:05 Finding of pattern of 928173154 O09.899 48857397 - growth US at 32 weeks Gestation period, 23 weeks 50337667 Z3A.23 1044833 - continue PNV [id number] MD [place] [address],[place] [address] 06/15/2025 14:07:20 06/15/2025 15:15:28 Finding of pattern of 424724424 O09.899 40134125 - growth US at 32 weeks Gestation period, 27 weeks 28086405 Z3A.27 5125089 - continue PNV [id number] Jaspal Nuñez MD [facility] [address],[place] [address] 07/01/2025 12:54:47 07/01/2025 13:22:35 care status 018580852 Z34.83 32455179 [id number] JOSÉ LOOMIS MD [facility] [address],[place] [address] 07/13/2025 17:03:04 07/13/2025 17:48:06 High risk 74299865 O09.33 O09.893 Z3A.31 3207908 [id number] MD Angel GILLIAM [address] [place] [address] 07/13/2025 17:03:22 07/14/2025 08:25:54 Iron deficiency anemia 43118913 D50.9 16068297 - starting Fe infusions tomorrow Finding of pattern of 200761909 O09.899 59909055 - growth US wnl, EFW 41% at 32 weeks Gestation period, 31 weeks 35373077 Z3A.31 6324159 - continue PNV [id number] JOSÉ LOOMIS MD [facility] [address],[place] [address] 07/27/2025 12:26:45 07/29/2025 15:15:39 Sterilization requested 018703663 Z30.2 73936338 - patient desires permanent sterilizat ion- discussed risks, benefits, and alternativ es of bilateral salpingect jose, including risks of bleeding, infection and injury to surroundin g organs. Also discussed alternativ e contracept deisi options including partner vasectomy and patient declines.- tubal papers signed Gestation period, 34 weeks 89029579 Z3A.34 9523979 - continue PNV Iron defic iency anemia 99966862 D50.9 65869868 - continuing Fe infusions tomorrow [id number] Jaspal Nuñez MD [facility] [address],[place] [address] 08/11/2025 16:54:13 08/12/2025 08:48:31 [id number] JOSÉ LOOMIS MD [facility] [address],[place] [address] 08/20/2025 16:38:58 08/20/2025 17:03:51 Iron deficiency anemia 87330019 D50.9 71883817 Gestation period, 37 weeks 61275664 Z3A.37 6399735 - continue PNV [id number] JOSÉ LOOMIS MD [facility] [address],[place] [address] 08/25/2025 10:34:46 08/25/2025 11:10:43 Sterilization requested 666519859 Z30.2 43701652 - patient desires permanent sterilizat ion- discussed risks, benefits, and alternativ es of bilateral salpingect jose, including risks of bleeding, infection and injury to surroundin g organs. Also discussed alternativ e contracept deisi options including partner vasectomy and patient declines.- tubal papers signed Iron defic iency anemia 80031609 D50.9 66876229 - s/p Fe infusions Gestation period, 38 weeks 98247719 Z3A.38 7678630 - continue PNV Health Concerns Section Related Observation LastModified by Organization Detai ls LastModified Time None Recorded Concern Status LastModified by Organization Details LastModified Time None Recorded Advance Directives Directive None Recorded Payers Insurance Date Sequence Insurance Name Policy Number Policy Paz Covered Member ID Paz Member ID Guarantor Name 08/31/2025 1 [facility] (MEDICAID HMO) [id number] [facility] [id number] [facility] Notes Date Note Type Note Provider Name and Address Organization Details Recorded Time 07/13/2025 text/html Generic HPI TemplateReported by Patient JOSÉ LOOMIS MD [address], [place], [address], [facility] 07/13/2025 18:26:01 07/27/2025 text/html Generic HPI TemplateReported by Patient JOSÉ LOOMIS MD [address], [place], [address], [facility] 07/29/2025 15:14:14 08/11/2025 text/html Generic HPI TemplateReported by Patient Jaspal Nuñez MD [address], [place], [address], [facility] 08/11/2025 17:38:57 08/20/2025 text/html Generic HPI TemplateReported by Patient JOSÉ LOOMIS MD [address], [place], [address], [facility] 08/20/2025 17:03:25 08/25/2025 text/html Generic HPI TemplateReported by Patient JOSÉ LOOMIS MD [address], [place], [address], [facility] 08/25/2025 11:06:04 OBGyn Episode Ob Episode Information Episode Created Date Number of Fetuses Patient Bloodtype Patient rh Status Prepregnancy Weight lbs Domestic Partner Domestic Partner Phone Father Name Director Business Management Status 02/08/20 23 1 O Positive 180 CLOSED Fetus Data First Name Last Name Admitted to NICU Weight (g) Sex Living Outcome Pediatric Complications Fetus ID Race Codes Race Delivery Type 2869.55 92637 F true Full Term nuchalx1 tight 54968 Vaginal Delivery Problems Problem Notes Problem Name Start Date End Date Resolution Snomed Code Not e Anemia 06/10/2023 MEDICATION 374184346 bid slow fe Increased 01844372 Asthma 639800032 mild-exerc ise-in duced Group B Streptococcus carrier 02/14/2023 MEDICATION [id number] in urine - tx' d 02/14 Christopher Calculation Initial Christopher Date Initial Exam Date Initial Exam Provider Initial Ultrasound Date Last Menstrual Period Date Ultra Sound Weeks Gestation 08/19/2023 02/07/2023 01/10/2023 11/12/2022 8 Eighteen To Twenty Week Christopher Update Ultra Sound Date Fundal Height At Umbil Quickening Date Ultra Sound Latest Weeks Gestation Final Christopher Confirmed By Final Christopher Confirmed Date Final Christopher Date Ultra Sound Latest Days Gestation 0 [email or web address] 02/07/2023 08/21/20 23 0 Pre-emil Flowsheet Flowsheet Date 02/07/2023 Medel Score Blood Edema Fundus Height Fundus Units Glucose Ketones Leukocytes Nitrite Labor Signs Protein Cervic Dilation Cervic Effacement Cervic Station 12 Type Weight in lbs Pre/Post Dialysis Refused Weight 177.811127260686 BP Diastolic BP Location Tested BP Systolic BP Type 76 R arm 116 sitting Fetus Heart Rate Present A 157 Fetus Movement Comments Is an 17-year-old 1 at 12 weeks gestation who presents for initial care. She has an unremarkable medical, surgical, obstetric history. We talked about care in detail. Vaccinations in detail. she will begin routine care. Flowsheet Date 03/07/2023 Medel Score Blood Edema Fundus Height Fundus Units Glucose Ketones Leukocytes Nitrite Labor Signs Protein Cervic Dilation Cervic Effacement Cervic Station 16 none trace Type Weight in lbs Pre/Post Dialysis Refused Weight 178.225298677696 BP Diastolic BP Location Tested BP Systolic BP Type 74 R arm 111 sitting Fetus Heart Rate Present A 145 Fetus Movement A No Comments No complaints, no problems, AFP today Flowsheet Date 04/11/2023 Medel Score Blood Edema Fundus Height Fundus Units Glucose Ketones Leukocytes Nitrite Labor Signs Protein Cervic Dilation Cervic Effacement Cervic Station Type Weight in lbs Pre/Post Dialysis Refused BP Diastolic BP Location Tested BP Systolic BP Type Fetus Heart Rate Present Fetus Movement Comments Flowsheet Date 04/11/2023 Medel Score Blood Edema Fundus Height Fundus Units Glucose Ketones Leukocytes Nitrite Labor Signs Protein Cervic Dilation Cervic Effacement Cervic Station 21 Type Weight in lbs Pre/Post Dialysis Refused Weight 185.824688958046 BP Diastolic BP Location Tested BP Systolic BP Type 68 R arm 105 sitting Fetus Heart Rate Present A 145 Fetus Movement A Yes Comments discussed Tdap vaccine again , discussed ultrasound results, needs repeat for certain anatomy, committed to do her delivery. Flowsheet Date 05/14/2023 Medel Score Blood Edema Fundus Height Fundus Units Glucose Ketones Leukocytes Nitrite Labor Signs Protein Cervic Dilation Cervic Effacement Cervic Station Type Weight in lbs Pre/Post Dialysis Refused BP Diastolic BP Location Tested BP Systolic BP Type Fetus Heart Rate Present Fetus Movement Comments Flowsheet Date 05/14/2023 Medel Score Blood Edema Fundus Height Fundus Units Glucose Ketones Leukocytes Nitrite Labor Signs Protein Cervic Dilation Cervic Effacement Cervic Station 25 none trace Type Weight in lbs Pre/Post Dialysis Refused Weight 186.240275574787 BP Diastolic BP Location Tested BP Systolic BP Type 71 R arm 114 sitting Fetus Heart Rate Present A 144 Fetus Movement A Yes Comments No complaints, no problems, routine care, small for gestational age, repeat ultrasound in 3 weeks with follow-up visit. Flowsheet Date 06/06/2023 Medel Score Blood Edema Fundus Height Fundus Units Glucose Ketones Leukocytes Nitrite Labor Signs Protein Cervic Dilation Cervic Effacement Cervic Station Type Weight in lbs Pre/Post Dialysis Refused BP Diastolic BP Location Tested BP Systolic BP Type Fetus Heart Rate Present Fetus Movement Comments Flowsheet Date 06/06/2023 Medel Score Blood Edema Fundus Height Fundus Units Glucose Ketones Leukocytes Nitrite Labor Signs Protein Cervic Dilation Cervic Effacement Cervic Station 29 none trace Type Weight in lbs Pre/Post Dialysis Refused Weight 187.932906196323 BP Diastolic BP Location Tested BP Systolic BP Type 72 R arm 106 sitting Fetus Heart Rate Present A 144 Fetus Movement A Yes Comments no complaints, no problems, routine care Flowsheet Date 06/20/2023 Medel Score Blood Edema Fundus Height Fundus Units Glucose Ketones Leukocytes Nitrite Labor Signs Protein Cervic Dilation Cervic Effacement Cervic Station 31 none trace Type Weight in lbs Pre/Post Dialysis Refused Weight 193.45665875761 BP Diastolic BP Location Tested BP Systolic BP Type 73 R arm 110 sitting Fetus Heart Rate Present A 134 Fetus Movement A Yes Comments No complaints, no problems, routine care Flowsheet Date 07/04/2023 Medel Score Blood Edema Fundus Height Fundus Units Glucose Ketones Leukocytes Nitrite Labor Signs Protein Cervic Dilation Cervic Effacement Cervic Station Type Weight in lbs Pre/Post Dialysis Refused BP Diastolic BP Location Tested BP Systolic BP Type Fetus Heart Rate Present Fetus Movement Comments Flowsheet Date 07/04/2023 Medel Score Blood Edema Fundus Height Fundus Units Glucose Ketones Leukocytes Nitrite Labor Signs Protein Cervic Dilation Cervic Effacement Cervic Station none trace Type Weight in lbs Pre/Post Dialysis Refused Weight 190.972277732288 BP Diastolic BP Location Tested BP Systolic BP Type 79 R arm 120 sitting Fetus Heart Rate Present Fetus Movement A Yes Comments no complaints, no problems, routine care. Flowsheet Date 07/15/2023 Medel Score Blood Edema Fundus Height Fundus Units Glucose Ketones Leukocytes Nitrite Labor Signs Protein Cervic Dilation Cervic Effacement Cervic Station Type Weight in lbs Pre/Post Dialysis Refused Weight 195.189741190744 BP Diastolic BP Location Tested BP Systolic BP Type 73 108 Fetus Heart Rate Present A 135 Fetus Movement A Yes Comments No ctx, LOF, VB. Good movement. Preadmit scheduled for next week. Flowsheet Date 07/26/2023 Medel Score Blood Edema Fundus Height Fundus Units Glucose Ketones Leukocytes Nitrite Labor Signs Protein Cervic Dilation Cervic Effacement Cervic Station none 0cm 50% -3 Type Weight in lbs Pre/Post Dialysis Refused Weight 197.179317248484 BP Diastolic BP Location Tested BP Systolic BP Type 77 115 Fetus Heart Rate Present A 150 Fetus Movement A Yes Comments Baby very active. Intermitte nt contractions, no LOF or VB. Discussed EIL, info sheet given. Unsure of contraceptive plan after delivery, has tried OCPs and depo before which she did not like. Will discuss further at next visit. Flowsheet Date 08/02/2023 Medel Score Blood Edema Fundus Height Fundus Units Glucose Ketones Leukocytes Nitrite Labor Signs Protein Cervic Dilation Cervic Effacement Cervic Station Type Weight in lbs Pre/Post Dialysis Refused Weight 198.245123464070 BP Diastolic BP Location Tested BP Systolic BP Type 76 113 Fetus Heart Rate Present A 130 Fetus Movement Comments Rare contractions, good feta l movement. Would like EIL, will send DA message to schedule. Discussed EIL process, patient voices understanding. Labor precautions discussed. Flowsheet Date 08/12/2023 Medel Score Blood Edema Fundus Height Fundus Units Glucose Ketones Leukocytes Nitrite Labor Signs Protein Cervic Dilation Cervic Effacement Cervic Station 38 Type Weight in lbs Pre/Post Dialysis Refused Weight 202.112357244180 BP Diastolic BP Location Tested BP Systolic BP Type 81 L arm 115 sitting Fetus Heart Rate Present A 145 Fetus Movement Comments no complaints, no problems, cervix-50%/ closed/ 0 Menstrual History Last Menstrual Date Menses Monthly On Bcp Conception Prior Menses Frequency Hcg Plus Date Menarche Onset Age 0211/12/2022 Genetic Screening And Infection History Question Response Note Mental Retardation/Autism false Patient's Age Will Be 35 Years Or Older At Estim ated Date of Delivery false Thalassemia (Swazi, Ukrainian, Mediterranean, Or Background): MCV < 80 false Neural Tube Defect (Meningomyelocele, Spina Bifi da, Or Anencephaly) false Congenital Heart Defect false Down Syndrome false Rui-Sachs (eg, Restorationist, Cajun, Norwegian-Gibraltarian) f alse Monse Disease false Sickle Cell Disease Or Trait () false Hemophilia Or Other Blood Disorders false Muscular Dystrophy false Cystic Fibrosis false Arlette's Chorea false Intellectual Disability/Autism false If Yes, Was Person Tested For Fragile X? false Other Inherited Genetic Or Chromosomal Disorder false Maternal Metabolic Disorder (eg, Type 1 Diabetes , PKU) false Patient Or Baby's Father Had A Child With Defects Not Listed Above false Recurrent Loss, Or A Stillbirth false Medications (including Suppl ements, Vitamins, Herbs, OTC Drugs), Illicit/Recreational Drugs, Alcohol false If Yes, Agent(s) And Strength/Dosage false Any Other Genetic History false Live With Someone With TB Or Exposed To TB false Patient Or Partner Has History Of Genital Herpes false Rash Or Viral Illness Since Last Menstrual Perio d false History Of STD, Gonorrhea, Chlamydia, HPV, Syphi lis false Other Infection History false History of HIV false History of Hepatitis false Prior GBS-infected child false Hemoglobinopathy Or Carrier false Other Structural Defect false Recent Travel History Outside of Country false Delivery Information Delivery Date Delivery Type Labor Anesthesia Weeks Gestation Incision Type Labor Labor Length Hrs Delivered By Post Complications Tubal Sterilization Discharge Date Comments 3 None Regional-Ep idural 38.6 Jaspal Shaikh MD Anemia, Asthma, Group B Streptoco ccus carrier, Increased Discharge Information Feeding Method Contraceptive Method Maternal HG B and HCT Levels Ob Episode Information Episode Created Date Number of Fetuses Patient Bloodtype Patient rh Status Prepregnancy Weight lbs Domestic Partner Domestic Partner Phone Father Name Director Business Management Status 02/26/20 24 1 O Positive 198 CLOSED Fetus Data First Name Last Name Admitted to NICU Weight (g) Sex Living Outcome Pediatric Complications Fetus ID Race Codes Race Delivery Type 3005.04 7 M true Full Term [id number] Vaginal Delivery Problems Problem Notes short interval - la st del 07/2023 Problem Name Start Date End Date Resolution Snomed Code Not e Anemia 06/22/2024 [id number] iron infu sions per SP Christopher Calculation Initial Christopher Date Initial Exam Date Initial Exam Provider Initial Ultrasound Date Last Menstrual Period Date Ultra Sound Weeks Gestation 09/07/2024 02/26/2024 01/23/2024 7 Eighteen To Twenty Week Christopher Update Ultra Sound Date Fundal Height At Umbil Quickening Date Ultra Sound Latest Weeks Gestation Final Christopher Confirmed By Final Christopher Confirmed Date Final Christopher Date Ultra Sound Latest Days Gestation 0 02/26/2024 09/07/20 24 0 Pre- Flowsheet Flowsheet Date 02/26/2024 Medel Score Blood Edema Fundus Height Fundus Units Glucose Ketones Leukocytes Nitrite Labor Signs Protein Cervic Dilation Cervic Effacement Cervic Station Type Weight in lbs Pre/Post Dialysis Refused Weight 191.62491228093 BP Diastolic BP Location Tested BP Systolic BP Type 64 105 Fetus Heart Rate Present A 151 Fetus Movement Comments [facility] Reports mild cramping, mild nausea. No bleeding. complicated by short interval , last 07/2023. Discussed increased risk of FGR and PTL. NT/NB wnl today, desires NIPT. Negative carrier screening with last . Discussed routine care. RTC 4 weeks. Flowsheet Date 03/27/2024 Medel Score Blood Edema Fundus Height Fundus Units Glucose Ketones Leukocytes Nitrite Labor Signs Protein Cervic Dilation Cervic Effacement Cervic Station Type Weight in lbs Pre/Post Dialysis Refused Weight 194.322431693275 BP Diastolic BP Location Tested BP Systolic BP Type 75 108 Fetus Heart Rate Present A 150 Fetus Movement Comments Doing well, mild nausea and cramping. New OB labs wnl, aside from anemia; started Fe supplement. NIPT to be drawn today. Discussed anatomy US for next visit. RTC 4 weeks. Flowsheet Date 04/21/2024 Medel Score Blood Edema Fundus Height Fundus Units Glucose Ketones Leukocytes Nitrite Labor Signs Protein Cervic Dilation Cervic Effacement Cervic Station Type Weight in lbs Pre/Post Dialysis Refused BP Diastolic BP Location Tested BP Systolic BP Type Fetus Heart Rate Present Fetus Movement Comments Flowsheet Date 04/24/2024 Medel Score Blood Edema Fundus Height Fundus Units Glucose Ketones Leukocytes Nitrite Labor Signs Protein Cervic Dilation Cervic Effacement Cervic Station Type Weight in lbs Pre/Post Dialysis Refused Weight 199.090906750018 BP Diastolic BP Location Tested BP Systolic BP Type 75 117 Fetus Heart Rate Present A 140 Fetus Movement A Yes Comments Good movement. No cram ping or bleeding. Having some bilateral leg numbness. LR male NIPT. Normal anatomy US today, EFW 67%. RTC 4 weeks. Flowsheet Date 05/21/2024 Medel Score Blood Edema Fundus Height Fundus Units Glucose Ketones Leukocytes Nitrite Labor Signs Protein Cervic Dilation Cervic Effacement Cervic Station 24 cm Type Weight in lbs Pre/Post Dialysis Refused 204.574237167430 BP Diastolic BP Location Tested BP Systolic BP Type 71 L arm 105 sitting Fetus Heart Rate Present A 145 Fetus Movement A Yes Comments no complaints, no problems, routine care, no contractions, no vaginal bleeding, no loss of fluid, no cramping Flowsheet Date 06/19/2024 Medel Score Blood Edema Fundus Height Fundus Units Glucose Ketones Leukocytes Nitrite Labor Signs Protein Cervic Dilation Cervic Effacement Cervic Station none Type Weight in lbs Pre/Post Dialysis Refused 207.651527965377 BP Diastolic BP Location Tested BP Systolic BP Type 74 109 Fetus Heart Rate Present Fetus Movement A Yes Comments Patient states that is havin g hip pain, discharge and nausea. plan maternity support belt, ice/heat to hip. +FM, glucose today, f/u 2 weeks, education and precautions Flowsheet Date 07/01/2024 Medel Score Blood Edema Fundus Height Fundus Units Glucose Ketones Leukocytes Nitrite Labor Signs Protein Cervic Dilation Cervic Effacement Cervic Station neg none none trace Type Weight in lbs Pre/Post Dialysis Refused 209.284690744817 BP Diastolic BP Location Tested BP Systolic BP Type 67 L arm 105 sitting Fetus Heart Rate Present Fetus Movement A Yes Comments Good movement. No cram ping or bleeding. Started IV Fe infusions, one more, tolerating well. Passed glucose test. Will repeat H/H next visit. Will discuss RSV and tdap next visit as well. RTC 2 weeks. Flowsheet Date 07/15/2024 Medel Score Blood Edema Fundus Height Fundus Units Glucose Ketones Leukocytes Nitrite Labor Signs Protein Cervic Dilation Cervic Effacement Cervic Station Type Weight in lbs Pre/Post Dialysis Refused BP Diastolic BP Location Tested BP Systolic BP Type Fetus Heart Rate Present Fetus Movement Comments Flowsheet Date 07/15/2024 Medel Score Blood Edema Fundus Height Fundus Units Glucose Ketones Leukocytes Nitrite Labor Signs Protein Cervic Dilation Cervic Effacement Cervic Station neg none none trace Type Weight in lbs Pre/Post Dialysis Refused Weight 210.810036324520 BP Diastolic BP Location Tested BP Systolic BP Type 77 L arm 111 sitting Fetus Heart Rate Present Fetus Movement A Yes Comments Doing well, good movem ent. No cramping or bleeding. Discussed contraception, would like tubal ligation however will not be covered by insurance due to age. Discussed LARCs, patient desires IUD. Will repeat anemia labs today now that she has finished IV Fe. EFW 56%, normal ALFREDA. Desires spontaneous labor. Discussed preadmission. RTC 2 weeks. Flowsheet Date 07/30/2024 Medel Score Blood Edema Fundus Height Fundus Units Glucose Ketones Leukocytes Nitrite Labor Signs Protein Cervic Dilation Cervic Effacement Cervic Station 34 cm Type Weight in lbs Pre/Post Dialysis Refused Weight 206.956499673475 BP Diastolic BP Location Tested BP Systolic BP Type 77 L arm 114 sitting Fetus Heart Rate Present A 143 Fetus Movement A Yes Comments no complaints, no problems, routine care, no contractions, no vaginal bleeding, no loss of fluid, no cramping Flowsheet Date 08/19/2024 Medel Score Blood Edema Fundus Height Fundus Units Glucose Ketones Leukocytes Nitrite Labor Signs Protein Cervic Dilation Cervic Effacement Cervic Station neg none none trace 1cm 50% -3 Type Weight in lbs Pre/Post Dialysis Refused Weight 212.953323979250 BP Diastolic BP Location Tested BP Systolic BP Type 76 L arm 109 sitting Fetus Heart Rate Present A 155 Fetus Movement A Yes Comments Patient c/o of lower pressur e/pain. No ctx, LOF, VB. Good movement. Labor precautions reviewed. GBS collected today. RTC 1 week. Flowsheet Date 08/25/2024 Medel Score Blood Edema Fundus Height Fundus Units Glucose Ketones Leukocytes Nitrite Labor Signs Protein Cervic Dilation Cervic Effacement Cervic Station neg none none trace Type Weight in lbs Pre/Post Dialysis Refused Weight 213.852144276154 BP Diastolic BP Location Tested BP Systolic BP Type 81 L arm 130 sitting Fetus Heart Rate Present Fetus Movement A Yes Comments Patient c/o of nausea and so me pains. She reports mild contractions every 10 minutes last night. Was able to sleep through them. No bleeding or LOF. Good movement. Would like 39 week EIL at midnight on 08/31 into 09/01. Labor precautions reviewed. RTC 1 week. Menstrual History Last Menstrual Date Menses Monthly On Bcp Conception Prior Menses Frequency Hcg Plus Date Menarche Onset Age Genetic Screening And Infection History Question Response Note Mental Retardation/Autism false Patient's Age Will Be 35 Years Or Older At Estim ated Date of Delivery false Thalassemia (Swazi, Ukrainian, Mediterranean, Or Background): MCV < 80 false Neural Tube Defect (Meningomyelocele, Spina Bifi da, Or Anencephaly) false Congenital Heart Defect false Down Syndrome false Rui-Sachs (eg, Restorationist, Cajun, Norwegian-Gibraltarian) f alse Monse Disease false Sickle Cell Disease Or Trait () false Hemophilia Or Other Blood Disorders false Muscular Dystrophy false Cystic Fibrosis false Arlette's Chorea false Intellectual Disability/Autism false If Yes, Was Person Tested For Fragile X? false Other Inherited Genetic Or Chromosomal Disorder false Maternal Metabolic Disorder (eg, Type 1 Diabetes , PKU) false Patient Or Baby's Father Had A Child With Defects Not Listed Above false Recurrent Loss, Or A Stillbirth false Medications (including Suppl ements, Vitamins, Herbs, OTC Drugs), Illicit/Recreational Drugs, Alcohol false If Yes, Agent(s) And Strength/Dosage false Any Other Genetic History false Live With Someone With TB Or Exposed To TB false Patient Or Partner Has History Of Genital Herpes false Rash Or Viral Illness Since Last Menstrual Perio d false History Of STD, Gonorrhea, Chlamydia, HPV, Syphi lis false Other Infection History false History of HIV false History of Hepatitis false Prior GBS-infected child false Hemoglobinopathy Or Carrier false Other Structural Defect false Recent Travel History Outside of Country false Delivery Information Delivery Date Delivery Type Labor Anesthesia Weeks Gestation Incision Type Labor Labor Length Hrs Delivered By Post Complications Tubal Sterilization Discharge Date Comments [address] josé loomis Discharge Information Feeding Method Contraceptive Method Maternal HG B and HCT Levels Ob Episode Information Episode Created Date Number of Fetuses Patient Bloodtype Patient rh Status Prepregnancy Weight lbs Domestic Partner Domestic Partner Phone Father Name Director Business Management Status 05/12/20 1 O Positive 215 OPEN Fetus Data First Name Last Name Admitted to NICU Weight (g) Sex Living Outcome Pediatric Complications Fetus ID Race Codes Race Delivery Type [id number] Problems Problem Notes iron infusions in previous p regnancy Problem Name Start Date End Date Resolution Snomed Code Not e Iron deficiency anemia 07/01/2025 [id number] Darya is arranging iron infusion. 07/01/25 order faxed 07/01 (IV iron infusions previous ) Sterilization requested 07/29/2025 [id number] tubal papers signed 07/27 Christopher Calculation [...] Type Weight in lbs Pre/Post Dialysis Refused 218.005956840341 BP Diastolic BP Location Tested BP Systolic BP Type 74 L arm 104 sitting Fetus Heart Rate Present A Present Fetus Movement A Yes Comments [facility]. Hx of short interval x2 and [...] Type Weight in lbs Pre/Post Dialysis Refused 218.749592986933 BP Diastolic BP Location Tested BP Systolic [...] Weight in lbs Pre/Post Dialysis Refused Weight 217.130991293800 BP Diastolic BP Location Tested BP Systolic [...] Weight in lbs Pre/Post Dialysis Refused Weight 214.836365529724 BP Diastolic BP Location Tested BP Systolic [...] Type Weight in lbs Pre/Post Dialysis Refused 213.055060272112 BP Diastolic BP Location Tested BP Systolic [...] Weight in lbs Pre/Post Dialysis Refused Weight 214.409703849361 BP Diastolic BP Location Tested BP Systolic [...] Weight in lbs Pre/Post Dialysis Refused Weight 212.281600954453 BP Diastolic BP Location Tested BP Systolic [...] Weight in lbs Pre/Post Dialysis Refused Weight 210.251443900094 BP Diastolic BP Location Tested BP Systolic [...]
--- OUTSIDE RECORDS SUMMARY | 2025-09-03 00:07 | XMS_ITS | Continuity of Care Document ---
Author Organization [facility], [facility] Address [address] [place] [address] Assessment Encounter Date Assessment Date Assessment LastModified by Organization Details LastModified Time 07/01/2025 07/01/2025 Patient is ___weeks . Discussed plan. [email or web address] Not available 07/01/2025 13:00:47 Plan of Treatment Reminders Order Date Submit [...] LOIDY NIPT fraction 8.5% normal Not Available Jacque presley [address], [place], [address], 05/18/2025 02:31:53 05/18/20 25 05/18/2025 [UNIT Y] ANEUP LOIDY NIPT 22Q11.2 microdeletio n LOW RISK <1 in 10,000 normal Not Available Omaira e [address], [place], [address], 05/18/2025 02:31:53 05/18/20 25 05/18/2025 [UNIT Y] ANEUP LOIDY NIPT sex chromosome aneuploidy NOT DETECT ED normal Not Available [facility] [address], [place], [address], 05/18/2025 02:31:53 05/18/20 25 05/18/2025 [UNIT Y] ANEUP LOIDY NIPT monosomy X LOW RISK <1 in 10,000 normal Not Available [facility] [address], [place], [address], 05/18/2025 02:31:53 05/18/20 25 05/18/2025 [UNIT Y] ANEUP LOIDY NIPT trisomy 13 LOW RISK <1 in 10,000 normal Not Available [facility] [address], [place], [address], 05/18/2025 02:31:53 05/18/20 25 05/18/2025 [UNIT Y] ANEUP LOIDY NIPT trisomy 18 LOW RISK <1 in 10,000 normal Not Available [facility] [address], [place], [address], 05/18/2025 02:31:53 05/18/20 25 05/18/2025 [UNIT Y] ANEUP LOIDY NIPT trisomy 21 LOW RISK <1 in 10,000 normal Not Available [facility] [address], [place], [address], 05/18/2025 02:31:53 05/18/20 25 05/18/2025 [UNIT Y] ANEUP LOIDY NIPT sex MALE normal Not Available [facility] [address], [place], [address], 05/18/2025 02:31:53 05/18/20 25 05/18/2025 [UNIT Y] ANEUP LOIDY NIPT gestation SINGLE TON normal Not Available [facility] [address], [place], [address], 05/18/2025 02:31:53 05/18/2005/18/2025 [UNIT Y] OBDULIAP CLARE NIPT for detailed report, see pdf See PDF normal Not Available Adrianon [facility] [address], [place], [address], 05/18/2025 02:31:53 05/12/2005/12/2025 HIV 1/2 ANTIG EN/AN TIBOD Y, REFLE X CONFI RMATI ON HIV antigen/anti body Nonrea ctive nonrea ctive HIV-1 antig en and HIV-1 /HIV- 2 antib odies were not detec gordo. No labor atory evide nce of HIV infec tion. Not Available [facility] (Lab) [address], [place], [address], 05/13/2025 12:17:00 05/12/2005/12/2025 HEPAT ITIS C ANTIB LAMONTE SCREE N, REFLE X TO CONFI RMATI ON hepatitis C antibody Non-re active non-re active Antib odies to HCV Not Detec gordo, does not exclu de the possi bilit y of expos ure to HCV. Not Available [facility] (Lab) [address], [place], [address], 05/13/2025 12:17:01 05/12/2005/12/2025 HEPAT ITIS B SURFA CE ANTIG EN hepatitis B surface antigen Non-re active non-re active This assay was perfo rmed using [employer] ratio n reage nts and test kits. Value s obtai jefry with other assay metho ds or kits canno t be used inter richmond eably . Not Available [facility] (Lab) [address], [place], [address], 05/13/2025 12:17:01 05/12/2005/12/2025 TSH, REFLE X FREE T4 TSH 1.94 uIU/m L 0.30-5 .33 Not Available [facility] (Lab) [address], [place], [address], 05/13/2025 12:17:02 05/12/2005/12/2025 RUBEL LA IGG ANTIB LAMONTE, QUANT rubella antibodies, IgG Reacti ve reacti ve Not Available [facility] (Lab) [address] [facility], [place], [address], 05/13/2025 12:17:02 05/12/20 25 05/12/2025 RUBEL LA IGG ANTIB LAMONTE, QUANT rubella antibodies, IgG quant 113.7 IU/mL >=10 Non-r eacti ve (Non- Immun e) <10 IU/mL React deisi (Immu ne) > or = 10 IU/mL Not Available [facility] (Lab) [address] [facility], [place], [address], 05/13/2025 12:17:02 05/12/20 25 05/12/2025 CBC W/DIF F WBC 15.1 10'3/ uL 3.5-10 .5 high Not Available [facility] (Lab) [address] [facility], [place], [address], 05/13/2025 12:17:03 05/12/20 25 05/12/2025 CBC W/DIF F RBC 3.60 10'6/ uL (based on docume nted legal sex) 3.80-5 .20 low Not Available [facility] (Lab) [address] [facility], [place], [address], 05/13/2025 12:17:03 05/12/20 25 05/12/2025 CBC W/DIF F HGB 10.5 g/dL (based on docume nted legal sex) 11.6-1 5.4 low Not Available [facility] (Lab) [address] [facility], [place], [address], 05/13/2025 12:17:03 05/12/20 25 05/12/2025 CBC W/DIF F HCT 32.2 % (based on docume nted legal sex) 34.0-4 5.0 low Not Available [facility] (Lab) [address] [facility], [place], [address], 05/13/2025 12:17:03 05/12/2005/12/2025 CBC W/DIF F MCV 89.4 fL 80.0-9 9.0 Not Available [facility] (Lab) [address] [facility], [place], [address], 05/13/2025 12:17:03 05/12/20 25 05/12/2025 CBC W/DIF F MCH 29.2 pg 27.0-3 4.0 Not Available [facility] (Lab) [address] [facility], [place], [address], 05/13/2025 12:17:03 05/12/20 25 05/12/2025 CBC W/DIF F MCHC 32.6 g/dL 32.0-3 5.5 Not Available [facility] (Lab) [address] [facility], [place], [address], 05/13/2025 12:17:03 05/12/2005/12/2025 CBC W/DIF F RDW 14.6 % 11.0-1 5.0 Not Available [facility] (Lab) [address] [facility], [place], [address], 05/13/2025 12:17:03 05/12/2005/12/2025 CBC W/DIF F plt 296 10'3/ uL 150-40 0 Not Available [facility] (Lab) [address] [facility], [place], [address], 05/13/2025 12:17:03 05/12/2005/12/2025 CBC W/DIF F MPV 11.1 fL 8.8-12 .1 Not Available [facility] (Lab) [address] [facility], [place], [address], 05/13/2025 12:17:03 08/13/20 25 05/12/2025 CBC W/DIF F NRBC's 0.0 % 0.0 Not Available [facility] (Lab) [address] [facility], [place], [address], 05/13/2025 12:17:03 05/12/20 25 05/12/2025 CBC W/DIF F absolute NRBCs 0.0 10'3/ uL no refere nce range establ ished Not Available [facility] (Lab) [address] [facility], [place], [address], 05/13/2025 12:17:03 05/12/20 25 05/12/2025 CBC W/DIF F neutrophils 74.6 % 34.0-7 3.0 high Not Available [facility] (Lab) [address] [facility], [place], [address], 05/13/2025 12:17:03 05/12/20 25 05/12/2025 CBC W/DIF F lymphocytes 17.1 % 15.0-5 0.0 Not Available [facility] (Lab) [address] [facility], [place], [address], 05/13/2025 12:17:03 05/12/20 25 05/12/2025 CBC W/DIF F monocytes 5.8 % 1.0-15 .0 Not Available [facility] (Lab) [address] [facility], [place], [address], 05/13/2025 12:17:03 05/12/20 25 05/12/2025 CBC W/DIF F eosinophils 0.8 % 0.0-8. 0 Not Available [facility] (Lab) [address] [facility], [place], [address], 05/13/2025 12:17:03 05/12/20 25 05/12/2025 CBC W/DIF F basophils 0.3 % 0.0-2. 0 Not Available [facility] (Lab) [address] [place], [address], 05/13/2025 12:17:03 05/12/2005/12/2025 CBC W/DIF F immature granulocytes 1.4 % no define d refere nce range Immat ure Granu locyt es (IG) repre sents autom ated enume ratio n of Metam yeloc ytes, Myelo cytes and Promy elocy joel when IG is < 5%. Blast s are not inclu ded in IG and repor gordo separ ately if prese nt. Not Available [facility] (Lab) [address] [facility], [place], [address], 05/13/2025 12:17:03 05/12/2005/12/2025 CBC W/DIF F absolute neutrophils 11.3 10'3/ uL 1.5-8. 0 high Not Available [facility] (Lab) [address] [facility], [place], [address], 05/13/2025 12:17:03 05/12/20 25 05/12/2025 CBC W/DIF F absolute lymphocytes 2.6 10'3/ uL 1.0-4. 0 Not Available [facility] (Lab) [address] [facility], [place], [address], 05/13/2025 12:17:03 05/12/20 25 05/12/2025 CBC W/DIF F absolute monocytes 0.9 10'3/ uL 0.2-1. 0 Not Available [facility] (Lab) [address] [facility], [place], [address], 05/13/2025 12:17:03 05/12/20 25 05/12/2025 CBC W/DIF F absolute eosinophils 0.1 10'3/ uL 0.0-0. 6 Not Available [facility] (Lab) [address] [place], [address], 05/13/2025 12:17:03 05/12/20 25 05/12/2025 CBC W/DIF F absolute basophils 0.0 10'3/ uL 0.0-0. 3 Not Available [facility] (Lab) [address] [place], [address], 05/13/2025 12:17:03 05/12/20 25 05/12/2025 CBC W/DIF F absolute immature granulocytes 0.2 10'3/ uL 0.00-0 .10 high Refer ence range s for nonbi nary/ inter sex or unspe cifie d gende r patie nts have not been estab lishe d. Plemp e refer to the follo wing table for range s estab lishe d for cisge nder patie nts and evalu ate in the clini nico melba xt of the indiv idual patie nt: https ://la and book. nm.or g/gen derx Not Available [facility] (Lab) [address] , [place], [address], 05/13/2025 12:17:03 05/12/20 25 05/12/2025 TYPE/ RH/SC REEN ABO/Rh type O POS Not Available [facility] (Lab) [address] [facility], [place], [address], 05/13/2025 12:17:03 05/12/2005/12/2025 TYPE/ RH/SC REEN antibody screen NEG Not Available [facility] (Lab) [address] [facility], [place], [address], 05/13/2025 12:17:03 05/12/2005/12/2025 TYPE/ RH/SC REEN exp date 2024 23:59 Not Available [facility] (Lab) [address] [facility], [place], [address], 05/13/2025 12:17:03 05/12/2005/12/2025 HEMOG LOBIN A1C hemoglobin A1C 4.9 % 4.0-5. 6 The Ameri can [employer] [facility] [employer] iatio n recom mends that a prima ry goal of theriain trujillo be a HBA1C of < 7% and that physi ciachetan roberts d reeva luate the treat ment regim en in patie nts with HBA1C value s consi stent ly > 8%. <5.7% Stefanie l 5.7 - 6.4% Incre ased risk for diabe joel >=6.5 % Diagn ostic of diabe ojel <7.0% Goal of thera py >8.0% Actio n sugge sted Not Available [facility] (Lab) [address] [facility], [place], [address], 05/13/2025 12:17:04 05/12/20 25 05/12/2025 RPR SCREE N, REFLE X TITER /CONF IRMAT ION RPR qualitative Nonrea ctive nonrea ctive Not Available [facility] (Lab) [address] [facility], [place], [address], 05/13/2025 12:17:04 05/12/2005/12/2025 CT/GC AND TRICH OMONA S VAGIN ZOHAIB (RRNA ), URINE chlamydia trachomatis, PCR Negati ve negati ve Not Available [facility] (Lab) [address] [facility], [place], [address], 05/13/2025 15:07:55 05/12/20 25 05/12/2025 CT/GC AND TRICH OMONA S VAGIN ZOHAIB (RRNA ), URINE neisseria gonorrhoeae, PCR Negati ve negati ve Not Available [facility] (Lab) [address] [facility], [place], [address], 05/13/2025 15:07:55 05/12/20 25 05/12/2025 CT/GC AND TRICH OMONA S VAGIN ZOHAIB (RRNA ), URINE trichomonas vaginalis ribosomal RNA (rrna) Negati ve negati ve Not Available [facility] (Lab) [address] [facility], [place], [address], 05/13/2025 15:07:55 06/15/20 25 06/15/2025 HEMAT OCRIT (HCT) HCT 29.3 % (based on docume nted legal sex) 34.0-4 5.0 low Not Available [facility] (Lab) [address] [facility], [place], [address], 06/16/2025 12:51:37 06/15/20 25 06/15/2025 HEMOG LOBIN (HGB) HGB 9.2 g/dL (based on docume nted legal sex) 11.6-1 5.4 low Not Available [facility] (Lab) [address] [facility], [place], [address], 06/16/2025 12:51:38 06/15/20 25 06/15/2025 GTT - GESTA RAMANA L SCREE N, ACOG OB glucose, 1 hour screen 117 mg/dL 70-135 Not Available [facility] (Lab) [address] [facility], [place], [address], 06/16/2025 12:51:38 06/15/20 25 06/15/2025 HIV 1/2 ANTIG EN/AN TIBOD Y, REFLE X CONFI RMATI ON HIV antigen/anti body Nonrea ctive nonrea ctive HIV-1 antig en and HIV-1 /HIV- 2 antib odies were not detec gordo. No labor atory evide nce of HIV infec tion. Not Available [facility] (Lab) [address] [facility], [place], [address], 06/16/2025 12:51:39 06/15/2006/15/2025 RPR SCREE N, REFLE X TITER /CONF IRMAT ION RPR qualitative Nonrea ctive nonrea ctive Not Available [facility] (Lab) [address] [facility], [place], [address], 06/16/2025 12:51:40 07/13/2007/13/2025 US, obste tric, follo w-up No observ ation record ed. [email or web address] [place] [address], [place], [address], 07/13/2025 18:01:23 07/13/2007/13/2025 US, obste tric, follo w-up No observ ation record ed. [email or web address] [address] [address], [place], [address], 07/13/2025 19:53:12 Result Notes None recorded. Problems Name Problem SNOMED Code Status Onset Date Resolution Date Notes Provider Name and Address Organization Details Recorded Time Asthma 816995040 Completed mild-exe rcise-in duced Franklinjena Martinezle [facility] 3 11:02:05 Increase d lactatio n 88220206 Completed Franklinjena MendiolaKanika [facility] 3 11:02:05 Pregnanc y 47957394 Completed 202208/14/2023 Tisha Sifuentes [facility] 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 3 11:02:05 Anemia 228766153 Completed 2022 bid slowfe Franklinjena Martinezle [facility] 3 11:02:05 Pregnanc y 66355683 Completed 202309/24/2024 Tisha Sifuentes [facility] 5 17:22:27 Anemia 184509769 Completed 2023 iron infusion s per SP [facility] 11:39:43 Pregnanc y 74234365 Active 2024 Tisha Sifuentes [facility] 5 17:22:27 Iron deficien cy anemia 79426844 Active 2024 Darya early iron infusion . 07/01/25 order faxed 07/01 (IV iron infusion s previous pregnanc y) Darya Aryan lomeli, [facility] 5 14:25:40 Steriliz erica trujillo 960655859 Active 2024 tubal papers signed 07/27 JOSÉ LOOMIS MD [address], [place], [address], [facility] 5 15:13:20 Problem Notes None recorded. Procedures Surgical History Date Name Laterality Status Provider Name and Address Organization Details Recorded Time 09/30/19 21 Date of Last Colonoscopy completed [facility] 01/10/2023 12:29:01 09/30/19 21 endoscopy completed [facility] 01/10/2023 12:30:43 09/30/19 21 Colonoscopy completed [facility] 01/10/2023 12:30:50 Imaging Results None recorded. Procedure Notes None recorded. Medical Equipment None Reported. Allergies Allergen ID Allergen Name Allergen Category Reaction Reaction Severity Criticality Documentation Date Start Date Code Code System Note Provider Name and Address Organization Details Recorded Time Substance with sulfonami de structure and antibacte rial mechanism of action (substanc e) medicatio n swelling Not available Not available 01/10/2023 91093 8003 SNOMED Radha Pipe armani, [facility] 3 11:53:58 Medications Name Sig Start [...] completed Not Available Not Available Not Available 1.5/30 (28) 1.5 mg-30 mcg (21)/75 mg (7) [...] and Address Organization Details Last Updated DateTime 07/01/2025 167.64 cm 35 kg/m2 74552.54 g 107/74 mm[Hg] Ruby Almendarez [facility] 07/01/2025 13:01:27 Social History Question Answer Notes LastModified by Organizat ion Details LastModified Time Tobacco Smoking Status Never Smoker Catia lomeli, [facility] 07/15/2023 14:04:09 Are You Blind Or [...] available 05/14/2023 Are You Sexually Active? Yes [email or web address] Information not available 10/13/2024 Do You Have Smoke And Carbon Monoxide Detectors In Your Home? Yes Information not available 05/14/2023 At What Age Did You Start Smoking Tobacco? 11 Information not available 05/14/2023 How Much Tobacco Do You Smoke? No Information not available 05/14/2023 Do You Use Sunscreen Routinely? Yes Information not available 05/14/2023 Has Tobacco Cessation Counseling Been Provided? No [email or web address] Information not available 07/15/2023 Have You Used IV Drugs? No Information not available 05/14/2023 Do You Have Difficulty Walking Or Climbing Stairs? No [email or web address] Information not available 07/15/2023 Sex: Unknown Functional Status Question Answer Note LastModified by Organizat ion Details LastModified Time Do you use any illicit or recreational drugs? Yes Information not available 05/14/2023 Do you or have you ever used any other forms of tobacco or nicotine? Yes [email or web address] Information not available 07/15/2023 What is your level of alcohol consumption? None Information not available 05/14/2023 Are you currently employed? No Information not available 10/13/2024 Are you able to walk independently without assistance or assistive devices? [email or web address] Information not available 05/14/2023 Are you able to care for yourself independently? Yes Information not available 07/15/2023 Do you have difficulty dressing, bathing, grooming, or toileting? No [email or web address] Information not available 07/15/2023 Do you or have you ever used e-cigarettes or vape? Current user of electronic cigarettes [email or web address] Information not available 07/15/2023 What is your exercise level? Occasional Information not available 05/14/2023 Mental Status Question Answer Note LastModified by Organization D etails LastModified Time Do you feel stressed (tense, restless, nervous, or anxious, or unable to sleep at night)? [id number] Information not available 05/14/2023 Family History Relationship Description Onset Age of this Age Resolved Age Notes LastModified by Organization Details LastModified Time Paternal Aunt Malignant neoplasm of breast [email or web address] Not available 01/10 12:29:46 Paternal Aunt Malignant neoplasm of breast [email or web address] Not available 2023 14:30:13 Medical History Condition [...] ICD10 Code Diagnosis IMO Codes Diagnosis Note [id number] JOSÉ LOOMIS MD [facility] [address] [address] 06/15/2025 14:07:20 06/15/2025 15:15:28 Finding of pattern of 843651926 O09.899 02147340 - growth US at 32 weeks Gestation period, 27 weeks 54817134 Z3A.27 5781262 - continue PNV [id number] Jaspal Nuñez MD [facility] [address] [address] 07/01/2025 12:54:47 07/01/2025 13:22:35 care status 208203640 Z34.83 [id number] Health Concerns Section Related Observation LastModified by Organization Detai ls LastModified Time None Recorded Concern Status LastModified by Organization Details LastModified Time None Recorded Payers Encounter Date Sequence Insurance Name Policy Number Policy Paz Covered Member ID Paz Member ID Guarantor Name 07/01/2025 1 [facility] (MEDICAID HMO) [id number] [facility] [id number] [facility] Notes Date Note Type Note Provider Name and Address Organization Details Recorded Time 07/01/2025 text/html Generic HPI TemplateReported by Patient Jaspal Nuñez MD [address], [place], [address], [facility] 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 07/01/25 order faxed 07/01 (IV iron infusions previous ) Sterilization requested 07/29/2025 [id number] tubal papers signed 07/27 Christopher Calculation [...] Ultra Sound Latest Days Gestation 0 0 Pre- Flowsheet Flowsheet Date 05/12/2025 Medel Score Blood Edema Fundus Height Fundus Units Glucose Ketones Leukocytes Nitrite Labor Signs Protein Cervic Dilation Cervic Effacement Cervic Station Type Weight in lbs Pre/Post Dialysis Refused 218.863116023252 BP Diastolic BP Location Tested BP Systolic BP Type 74 L arm 104 sitting Fetus Heart Rate Present A Present Fetus Movement A Yes Comments Patient presents to health system care. Hx of short interval x2 and [...] Type Weight in lbs Pre/Post Dialysis Refused 218.800822807896 BP Diastolic BP Location Tested BP Systolic [...] Weight in lbs Pre/Post Dialysis Refused Weight 217.221718933311 BP Diastolic BP Location Tested BP Systolic [...] Weight in lbs Pre/Post Dialysis Refused Weight 214.348546019288 BP Diastolic BP Location Tested BP Systolic [...] Type Weight in lbs Pre/Post Dialysis Refused 213.235043867128 BP Diastolic BP Location Tested BP Systolic [...] Weight in lbs Pre/Post Dialysis Refused Weight 214.742389926697 BP Diastolic BP Location Tested BP Systolic [...] Weight in lbs Pre/Post Dialysis Refused Weight 212.491759029348 BP Diastolic BP Location Tested BP Systolic [...] Weight in lbs Pre/Post Dialysis Refused Weight 210.891578471703 BP Diastolic BP Location Tested BP Systolic [...]
--- OUTSIDE RECORDS SUMMARY | 2025-09-03 00:07 | XMS_ITS | Continuity of Care Document ---
Author Organization [facility] Address [address] [place] [address] Assessment No assessment recorded. Plan of Treatment [...] [facility] n[facility] [address], [address] [address], [address], 05/18/2025 02:31:53 05/18/20 25 05/18/2025 [UNIT Y] ANEUP LOIDY NIPT 22Q11.2 microdeletio n LOW RISK <1 in 10,000 normal Not Available [facility] [address], [address] [address], [address], 05/18/2025 02:31:53 05/18/20 25 05/18/2025 [UNIT Y] ANEUP LOIDY NIPT sex chromosome aneuploidy NOT DETECT ED normal Not Available [facility] [address], [address] [address], [address], 05/18/2025 02:31:53 05/18/20 25 05/18/2025 [UNIT Y] ANEUP LOIDY NIPT monosomy X LOW RISK <1 in 10,000 normal Not Available [facility] [address], [place], [address], 05/18/2025 02:31:53 05/18/20 25 05/18/2025 [UNIT Y] ANEUP LOIDY NIPT trisomy 13 LOW RISK <1 in 10,000 normal Not Available [facility] [address], [place], [address], 05/18/2025 02:31:53 05/18/20 25 05/18/2025 [UNIT Y] ANEUP LOIDY NIPT trisomy 18 LOW RISK <1 in 10,000 normal Not Available [facility] [address], [place], [address], 05/18/2025 02:31:53 05/18/20 25 05/18/2025 [UNIT Y] ANEUP LOIDY NIPT trisomy 21 LOW RISK <1 in 10,000 normal Not Available [facility] [address], [place], [address], 05/18/2025 02:31:53 05/18/20 25 05/18/2025 [UNIT Y] ANEUP LOIDY NIPT sex MALE normal Not Available [facility] [address], [place], [address], 05/18/2025 02:31:53 05/18/20 25 05/18/2025 [UNIT Y] ANEUP LOIDY NIPT gestation SINGLE TON normal Not Available [facility] [address], [place] [address], [address], 05/18/2025 02:31:53 05/18/20 25 05/18/2025 [UNIT Y] ANEUP LOIDY NIPT for detailed report, see pdf See PDF normal Not Available [facility] [address], [place], [address], 05/18/2025 02:31:53 05/12/2005/12/2025 HIV 1/2 ANTIG EN/AN TIBOD Y, REFLE X CONFI RMATI ON HIV antigen/anti body Nonrea ctive nonrea ctive HIV-1 antig en and HIV-1 /HIV- 2 antib odies were not detec gordo. No labor atory evide nce of HIV infec tion. Not Available [facility] (Lab) [address] [facility], [place], [address], 05/13/2025 12:17:00 05/12/2005/12/2025 HEPAT ITIS C ANTIB LAMONTE SCREE N, REFLE X TO CONFI RMATI ON hepatitis C antibody Non-re active non-re active Antib odies to HCV Not Detec gordo, does not exclu de the possi bilit y of expos ure to HCV. Not Available [facility] (Lab) [address] [facility], [place], [address], 05/13/2025 12:17:01 05/12/2005/12/2025 HEPAT ITIS B SURFA CE ANTIG EN hepatitis B surface antigen Non-re active non-re active This assay was perfo rmed using [employer] ratio n reage nts and test kits. Value s obtai jefry with other assay metho ds or kits canno t be used inter richmond eably . Not Available [facility] (Lab) [address] [facility], [place], [address], 05/13/2025 12:17:01 05/12/2005/12/2025 TSH, REFLE X FREE T4 TSH 1.94 uIU/m L 0.30-5 .33 Not Available [facility] (Lab) [address] [facility], [place], [address], 05/13/2025 12:17:02 05/12/2005/12/2025 RUBEL LA IGG ANTIB LAMONTE, QUANT rubella antibodies, IgG Reacti ve reacti ve Not Available [facility] (Lab) [address] [facility], [place], [address], 05/13/2025 12:17:02 05/12/2005/12/2025 RUBEL LA IGG ANTIB LAMONTE, QUANT rubella antibodies, IgG quant 113.7 IU/mL >=10 Non-r eacti ve (Non- Immun e) <10 IU/mL React deisi (Immu ne) > or = 10 IU/mL Not Available [facility] (Lab) [address] [facility], [place], [address], 05/13/2025 12:17:02 05/12/2005/12/2025 CBC W/DIF F WBC 15.1 10'3/ uL 3.5-10 .5 high Not Available [facility] (Lab) [address] [facility], [place], [address], 05/13/2025 12:17:03 05/12/20 25 05/12/2025 CBC W/DIF F RBC 3.60 10'6/ uL (based on docume nted legal sex) 3.80-5 .20 low Not Available [facility] (Lab) [address] [facility], [place], [address], 05/13/2025 12:17:03 05/12/20 25 05/12/2025 CBC W/DIF F HGB 10.5 g/dL (based on docume nted legal sex) 11.6-1 5.4 low Not Available [facility] (Lab) [address] [facility], [place], [address], 05/13/2025 12:17:03 05/12/2005/12/2025 CBC W/DIF F HCT 32.2 % (based on docume nted legal sex) 34.0-4 5.0 low Not Available [facility] (Lab) [address] [facility], [place], [address], 05/13/2025 12:17:03 05/12/2005/12/2025 CBC W/DIF F MCV 89.4 fL 80.0-9 9.0 Not Available [facility] (Lab) [address], [place], [address], 05/13/2025 12:17:03 05/12/2005/12/2025 CBC W/DIF F MCH 29.2 pg 27.0-3 4.0 Not Available [facility] (Lab) [address], [place], [address], 05/13/2025 12:17:03 05/12/20 25 05/12/2025 CBC W/DIF F MCHC 32.6 g/dL 32.0-3 5.5 Not Available [facility] (Lab) [address], [place], [address], 05/13/2025 12:17:03 05/12/2005/12/2025 CBC W/DIF F RDW 14.6 % 11.0-1 5.0 Not Available [facility] (Lab) [address], [place], [address], 05/13/2025 12:17:03 05/12/20 25 05/12/2025 CBC W/DIF F plt 296 10'3/ uL 150-40 0 Not Available [facility] (Lab) [address], [place], [address], 05/13/2025 12:17:03 05/12/2005/12/2025 CBC W/DIF F MPV 11.1 fL 8.8-12 .1 Not Available [facility] (Lab) [address], [place], [address], 05/13/2025 12:17:03 05/12/20 25 05/12/2025 CBC W/DIF F NRBC's 0.0 % 0.0 Not Available [facility] (Lab) [address] [place], [address], 05/13/2025 12:17:03 08/13/20 25 05/12/2025 CBC W/DIF F absolute NRBCs 0.0 10'3/ uL no refere nce range establ ished Not Available [facility] (Lab) [address] [facility], [place], [address], 05/13/2025 12:17:03 05/12/20 25 05/12/2025 CBC W/DIF F neutrophils 74.6 % 34.0-7 3.0 high Not Available [facility] (Lab) [address] [facility], [place], [address], 05/13/2025 12:17:03 05/12/20 25 05/12/2025 CBC W/DIF F lymphocytes 17.1 % 15.0-5 0.0 Not Available [facility] (Lab) [address] [facility], [place], [address], 05/13/2025 12:17:03 05/12/20 25 05/12/2025 CBC W/DIF F monocytes 5.8 % 1.0-15 .0 Not Available [facility] (Lab) [address] [facility], [place], [address], 05/13/2025 12:17:03 05/12/20 25 05/12/2025 CBC W/DIF F eosinophils 0.8 % 0.0-8. 0 Not Available [facility] (Lab) [address] [facility], [place], [address], 05/13/2025 12:17:03 05/12/20 25 05/12/2025 CBC W/DIF F basophils 0.3 % 0.0-2. 0 Not Available [facility] (Lab) [address] [place], [address], 05/13/2025 12:17:03 05/12/20 25 05/12/2025 CBC W/DIF [...] separ ately if prese nt. Not Available [facility] (Lab) [address] [facility], [place], [address], 05/13/2025 12:17:03 05/12/20 25 05/12/2025 CBC W/DIF F absolute neutrophils 11.3 10'3/ uL 1.5-8. 0 high Not Available [facility] (Lab) [address] [facility], [place], [address], 05/13/2025 12:17:03 05/12/20 25 05/12/2025 CBC W/DIF F absolute lymphocytes 2.6 10'3/ uL 1.0-4. 0 Not Available [facility] (Lab) [address] [facility], [place], [address], 05/13/2025 12:17:03 05/12/20 25 05/12/2025 CBC W/DIF F absolute monocytes 0.9 10'3/ uL 0.2-1. 0 Not Available [facility] (Lab) [address] [facility], [place], [address], 05/13/2025 12:17:03 05/12/20 25 05/12/2025 CBC W/DIF F absolute eosinophils 0.1 10'3/ uL 0.0-0. 6 Not Available [facility] (Lab) [address] [facility], [place], [address], 05/13/2025 12:17:03 05/12/20 25 05/12/2025 CBC W/DIF F absolute basophils 0.0 10'3/ uL 0.0-0. 3 Not Available [facility] (Lab) [address] [facility], [place], [address], 05/13/2025 12:17:03 05/12/20 25 05/12/2025 CBC W/DIF [...] lizama book. nm.or g/gen derx Not Available [facility] (Lab) [address] [facility], [place], [address], 05/13/2025 12:17:03 05/12/2005/12/2025 TYPE/ RH/SC REEN ABO/Rh type O POS Not Available [facility] (Lab) [address] [facility], [place], [address], 05/13/2025 12:17:03 05/12/20 25 05/12/2025 TYPE/ RH/SC REEN antibody screen NEG Not Available [facility] (Lab) [address] [facility], [place], [address], 05/13/2025 12:17:03 05/12/20 25 05/12/2025 TYPE/ RH/SC REEN exp date 2024 23:59 Not Available [facility] (Lab) [address] [place], [address], 05/13/2025 12:17:03 05/12/2005/12/2025 HEMOG LOBIN A1C hemoglobin [...] >8.0% Actio n sugge sted Not Available [facility] (Lab) [address] [facility], [place], [address], 05/13/2025 12:17:04 05/12/20 25 05/12/2025 RPR SCREE N, REFLE X TITER /CONF IRMAT ION RPR qualitative Nonrea ctive nonrea ctive Not Available [facility] (Lab) [address] [facility], [place], [address], 05/13/2025 12:17:04 05/12/20 25 05/12/2025 CT/GC AND TRICH OMONA S VAGIN ZOHAIB (RRNA ), URINE chlamydia trachomatis, PCR Negati ve negati ve Not Available [facility] (Lab) [address] [facility], [place], [address], 05/13/2025 15:07:55 05/12/20 25 05/12/2025 CT/GC AND TRICH OMONA S VAGIN ZOHAIB (RRNA ), URINE neisseria gonorrhoeae, PCR Negati ve negati ve Not Available [facility] (Lab) [address] [facility], [place], [address], 05/13/2025 15:07:55 05/12/20 25 05/12/2025 CT/GC AND TRICH OMONA S VAGIN ZOHAIB (RRNA ), URINE trichomonas vaginalis ribosomal RNA (rrna) Negati ve negati ve Not Available [facility] (Lab) [address] [facility], [place], [address], 05/13/2025 15:07:55 06/15/20 25 06/15/2025 HEMAT OCRIT (HCT) HCT 29.3 % (based on docume nted legal sex) 34.0-4 5.0 low Not Available [facility] (Lab) [address] [facility], [place], [address], 06/16/2025 12:51:37 06/15/20 25 06/15/2025 HEMOG LOBIN (HGB) HGB 9.2 g/dL (based on docume nted legal sex) 11.6-1 5.4 low Not Available [facility] (Lab) [address] [facility], [place], [address], 06/16/2025 12:51:38 06/15/20 25 06/15/2025 GTT - GESTA RAMANA L SCREE N, ACOG OB glucose, 1 hour screen 117 mg/dL 70-135 Not Available [facility] (Lab) [address] [facility], [place], [address], 06/16/2025 12:51:38 06/15/2006/15/2025 HIV 1/2 ANTIG EN/AN TIBOD Y, REFLE X CONFI RMATI ON HIV antigen/anti body Nonrea ctive nonrea ctive HIV-1 antig en and HIV-1 /HIV- 2 antib odies were not detec gordo. No labor atory evide nce of HIV infec tion. Not Available [facility] (Lab) [address] [facility], [place], [address], 06/16/2025 12:51:39 06/15/2006/15/2025 RPR SCREE N, REFLE X TITER /CONF IRMAT ION RPR qualitative Nonrea ctive nonrea ctive Not Available [facility] (Lab) [address] [facility], [place], [address], 06/16/2025 12:51:40 07/13/2007/13/2025 US, obste tric, follo w-up No observ ation record ed. [email or web address] [facility] [address], [place], [address], 07/13/2025 18:01:23 07/13/20 25 07/13/2025 US, obste tric, follo w-up No observ ation record ed. [email or web address] [address] [address], [place], [address], 07/13/2025 19:53:12 Result Notes None recorded. Problems Name Problem SNOMED Code Status Onset Date Resolution Date Notes Provider Name and Address Organization Details Recorded Time Asthma 995216163 Completed mild-exe rcise-in duced Nadeem Boudreaux [facility] 3 11:02:05 Increase d lactatio n 17019043 Completed Nadeem Boudreaux [facility] 3 11:02:05 Pregnanc y 19282881 Completed 202208/14/[address] [facility] 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 3 11:02:05 Anemia 023433925 Completed 2022 bid slowfe Nadeem Boudreaux [facility] 3 11:02:05 Pregnanc y 62009294 Completed 202309/24/[address] [facility] 5 17:22:27 Anemia 874618796 Completed 2023 iron infusion s per SP Nadeem Boudreaux [facility] 4 11:39:43 Pregnanc y 72394153 Active [address] [facility] 5 17:22:27 Iron deficien cy anemia 70262224 Active 2024 Darya baker g iron infusion . 07/01/25 order faxed 07/01 (IV iron infusion s previous pregnanc y) Darya Baeza [facility] 5 14:25:40 Aicha trujillo 290094005 Active 2024 tubal papers signed 07/27 JOSÉ LOOMIS MD [address], [place], [address], [facility] 5 15:13:20 Problem Notes None recorded. Procedures Surgical History Date Name Laterality Status Provider Name and Address Organization Details Recorded Time 09/30/19 21 Date of Last Colonoscopy completed [facility] 01/10/2023 12:29:01 09/30/19 21 endoscopy completed [facility] 01/10/2023 12:30:43 09/30/19 21 Colonoscopy completed [facility] 01/10/2023 12:30:50 Imaging Results None [...] n swelling Not available Not available 01/10/2023 [id number] SNOMED Radha Pipe lomeli, [facility] 3 11:53:58 Medications Name [...] Address Organization Details Last Updated DateTime 07/27/2025 98935.33515 g 116/76 mm[Hg] Cyndy Mccain [facility] 07/27/2025 12:46:53 Social History Question Answer Notes LastModified by Organizat ion Details LastModified Time Tobacco Smoking Status Never Smoker Bradreji Ceballosmaryellen lomeli, [facility] 07/15/2023 14:04:09 Are You [...] available 05/14/2023 Are You Sexually Active? Yes [email or web address] Information not available 10/13/2024 Do You Have Smoke And Carbon Monoxide Detectors In Your Home? Yes Information not available 05/14/2023 At What Age Did You Start Smoking Tobacco? 11 Information not available 05/14/2023 How Much Tobacco Do You Smoke? No Information not available 05/14/2023 Do You Use Sunscreen Routinely? Yes Information not available 05/14/2023 Has Tobacco Cessation Counseling Been Provided? No [email or web address] Information not available 07/15/2023 Have You Used IV Drugs? No Information not available 05/14/2023 Do You Have Difficulty Walking Or Climbing Stairs? No [email or web address] Information not available 07/15/2023 Sex: Unknown Functional Status Question Answer Note LastModified by Organizat ion Details LastModified Time Do you use any illicit or recreational drugs? Yes Information not available 05/14/2023 Do you or have you ever used any other forms of tobacco or nicotine? Yes Information not available 07/15/2023 What is your level of alcohol consumption? None Information not available 05/14/2023 Are you currently employed? No [email or web address] Information not available 10/13/2024 Are you able to walk independently without assistance or assistive devices? [email or web address] Information not available 05/14/2023 Are you able to care for yourself independently? Yes Information not available 07/15/2023 Do you have difficulty dressing, bathing, grooming, or toileting? No [email or web address] Information not available 07/15/2023 Do you or have you ever used e-cigarettes or vape? Current user of electronic cigarettes [email or web address] Information not available 07/15/2023 What is your exercise level? Occasional Information not available 05/14/2023 Mental Status Question Answer Note LastModified by Organization D etails LastModified Time Do you feel stressed (tense, restless, nervous, or anxious, or unable to sleep at night)? [id number] Information not available 05/14/2023 Family History Relationship Description Onset Age of this Age Resolved Age Notes LastModified by Organization Details LastModified Time Paternal Aunt Malignant neoplasm of breast [email or web address] Not available 01/10 12:29:46 Paternal Aunt Malignant neoplasm of breast [email or web address] Not available 2023 14:30:13 Medical History Condition Response Allergies (Food, seasonal, environmental ) N Other N Drug/Latex Allergies/Reactions N Breast Cancer N Blood Transfusion N Lung Disease N Dermatologic Disorders N Defects or Inherited Disease N Breast Problem N Gestational Diabetes N Hematologic disorders N Anesthesia Complications N History of STI N Deep Vein Thrombosis N Polycystic ovary syndrome N Anxiety Disorder N Autoimmune disease N Arthritis N Polyps N Infertility N History of abnormal pap N Acid Reflux (GERD) N Cancer N Varicosities N Stroke N Neurologic/Epilepsy N Endometriosis N High Cholesterol N Headaches N Fibromyalgia N Kidney Disease N Heart Problems N Thyroid Problems N Kidney or Bladder Problems N GI Problems N Eating Disorder [...] ICD10 Code Diagnosis IMO Codes Diagnosis Note [id number] Jaspal Nuñez MD [facility] [address] [address] 07/01/2025 12:54:47 07/01/2025 13:22:35 care status 486796305 Z34.83 [id number] JOSÉ LOOMIS MD [facility] [address],[place] [address] 07/13/2025 17:03:04 07/13/2025 17:48:06 High risk 41659837 O09.33 O09.893 Z3A.31 [id number] MD Angel GILLIAM [address],[place] [address] 07/13/2025 17:03:22 07/14/2025 08:25:54 Iron deficiency anemia 18404783 D50.9 14974767 - starting Fe infusions tomorrow Finding of pattern of 488418196 O09.899 77472508 - growth US wnl, EFW 41% at 32 weeks Gestation period, 31 weeks 37508863 Z3A.31 9586496 - continue PNV [id number] JOSÉ LOOMIS MD [facility] [address],[place] [address] 07/27/2025 12:26:45 07/29/2025 15:15:39 Sterilization requested 183166510 Z30.2 95421078 - patient desires permanent sterilizat ion- discussed risks, benefits, and alternativ es of bilateral salpingect jose, including risks of bleeding, infection and injury to surroundin g organs. Also discussed alternativ e contracept deisi options including partner vasectomy and patient declines.- tubal papers signed Gestation period, 34 weeks 89144954 Z3A.34 8118909 - continue PNV Iron defic iency anemia 72333916 D50.9 02139826 - continuing Fe infusions tomorrow Health Concerns Section Related Observation LastModified by Organization Peng garcia LastModified Time None Recorded Concern Status LastModified by Organization Details LastModified Time None Recorded Payers Encounter Date Sequence Insurance Name Policy Number Policy Paz Covered Member ID Paz Member ID Guarantor Name 07/27/2025 1 [facility] (MEDICAID HMO) [id number] Sravanthi Mace [id number] Sravanthi Mace Notes Date Note Type Note Provider Name and Address Organization Details Recorded Time 07/27/2025 text/html Generic HPI TemplateReported by Patient JOSÉ LOOMIS MD [address], [place], [address], [place] [facility] 07/29/2025 15:14:14 OBGyn Episode Ob Episode Information Episode Created Date Number of Fetuses Patient Bloodtype Patient rh Status Prepregnancy Weight lbs Domestic Partner Domestic Partner Phone Father Name Noxious Weeds And Pest Inspector Status 05/12/20 1 O Positive 215 OPEN Fetus Data First Name Last Name Admitted to NICU Weight (g) Sex Living Outcome Pediatric Complications Fetus ID Race Codes Race Delivery Type [id number] Problems Problem Notes iron infusions in previous p regnancy Problem Name Start Date End Date Resolution Snomed Code Not e Iron deficiency anemia 07/01/2025 903528 02 Darya is arranging iron infusion. 07/01/25 order faxed 07/01 (IV iron infusions previous ) Sterilization requested 07/29/2025 [id number] tubal papers signed 07/27 Christopher Calculation [...] Type Weight in lbs Pre/Post Dialysis Refused 218.956734179040 BP Diastolic BP Location Tested BP Systolic BP Type 74 L arm 104 sitting Fetus Heart Rate Present A Present Fetus Movement A Yes Comments Patient presents to [facility] care. Hx of short interval [...] Type Weight in lbs Pre/Post Dialysis Refused 218.937436904262 BP Diastolic BP Location Tested BP Systolic [...] Weight in lbs Pre/Post Dialysis Refused Weight 217.467747822141 BP Diastolic BP Location Tested BP Systolic [...] Weight in lbs Pre/Post Dialysis Refused Weight 214.227757204522 BP Diastolic BP Location Tested BP Systolic [...] Type Weight in lbs Pre/Post Dialysis Refused 213.632355767362 BP Diastolic BP Location Tested BP Systolic [...] Weight in lbs Pre/Post Dialysis Refused Weight 214.933573157963 BP Diastolic BP Location Tested BP Systolic [...] Weight in lbs Pre/Post Dialysis Refused Weight 212.603843994311 BP Diastolic BP Location Tested BP Systolic [...] Weight in lbs Pre/Post Dialysis Refused Weight 210.448884108032 BP Diastolic BP Location Tested BP Systolic [...]
--- OUTSIDE RECORDS SUMMARY | 2025-09-03 00:07 | XMS_ITS | Continuity of Care Document ---
Author Organization [facility] Address [address] [place] [address] Assessment Encounter Date Assessment Date Assessment LastModified by Organization Details LastModified Time 08/11/2025 08/11/2025 Patient is ___weeks . Discussed plan. [email or web address] Not available 08/11/2025 16:59:12 Plan of Treatment [...] Not Available Jacque presley [address], [place], [address], 05/18/2025 02:31:53 05/18/20 25 05/18/2025 [UNIT Y] ANEUP LOIDY NIPT 22Q11.2 microdeletio n LOW RISK <1 in 10,000 normal Not Available Omaira e [address], [place], [address], 05/18/2025 02:31:53 05/18/20 25 05/18/2025 [UNIT Y] ANEUP LOIDY NIPT sex chromosome aneuploidy NOT DETECT ED normal Not Available [facility] [address], [place], [address], 05/18/2025 02:31:53 05/18/20 25 05/18/2025 [UNIT Y] ANEUP LOIDY NIPT monosomy X LOW RISK <1 in 10,000 normal Not Available [facility] [address], [place], [address], 05/18/2025 02:31:53 05/18/20 25 05/18/2025 [UNIT Y] ANEUP LOIDY NIPT trisomy 13 LOW RISK <1 in 10,000 normal Not Available [facility] [address], [place], [address], 05/18/2025 02:31:53 05/18/20 25 05/18/2025 [UNIT Y] ANEUP LOIDY NIPT trisomy 18 LOW RISK <1 in 10,000 normal Not Available [facility] [address], [place], [address], 05/18/2025 02:31:53 05/18/20 25 05/18/2025 [UNIT Y] ANEUP LOIDY NIPT trisomy 21 LOW RISK <1 in 10,000 normal Not Available [facility] [address], [place], [address], 05/18/2025 02:31:53 05/18/20 25 05/18/2025 [UNIT Y] ANEUP LOIDY NIPT sex MALE normal Not Available [facility] [address], [place], [address], 05/18/2025 02:31:53 05/18/20 25 05/18/2025 [UNIT Y] ANEUP LOIDY NIPT gestation SINGLE TON normal Not Available [facility] [address], [place], [address], 05/18/2025 02:31:53 05/18/2005/18/2025 [UNIT Y] ANEUP CLARE NIPT for detailed report, see pdf See PDF normal Not Available [facility] [address], [place], [address], 05/18/2025 02:31:53 05/12/2005/12/2025 HIV 1/2 ANTIG EN/AN TIBOD Y, REFLE X CONFI RMATI ON HIV antigen/anti body Nonrea ctive nonrea ctive HIV-1 antig en and HIV-1 /HIV- 2 antib odies were not detec gordo. No labor atory evide nce of HIV infec tion. Not Available [facility] (Lab) [address], [place], [address], 05/13/2025 12:17:00 05/12/2005/12/2025 HEPAT ITIS C ANTIB LAMONTE SCREE N, REFLE X TO CONFI RMATI ON hepatitis C antibody Non-re active non-re active Antib odies to HCV Not Detec gordo, does not exclu de the possi bilit y of expos ure to HCV. Not Available [facility] (Lab) [address], [place], [address], 05/13/2025 12:17:01 05/12/2005/12/2025 HEPAT ITIS B SURFA CE ANTIG EN hepatitis B surface antigen Non-re active non-re active This assay was perfo rmed using [employer] ratio n reage nts and test kits. Value s obtai jefry with other assay metho ds or kits canno t be used inter richmond eably . Not Available [facility] (Lab) [address], [place], [address], 05/13/2025 12:17:01 05/12/2005/12/2025 TSH, REFLE X FREE T4 TSH 1.94 uIU/m L 0.30-5 .33 Not Available [facility] (Lab) [address], [place], [address], 05/13/2025 12:17:02 05/12/2005/12/2025 RUBEL LA IGG ANTIB LAMONTE, QUANT rubella antibodies, IgG Reacti ve reacti ve Not Available [facility] (Lab) [address] [facility], [place], [address], 05/13/2025 12:17:02 05/12/2005/12/2025 RUBEL LA IGG ANTIB LAMONTE, QUANT rubella antibodies, IgG quant 113.7 IU/mL >=10 Non-r eacti ve (Non- Immun e) <10 IU/mL React deisi (Immu ne) > or = 10 IU/mL Not Available [facility] (Lab) [address] [facility] [facility], [place], [address], 05/13/2025 12:17:02 05/12/2005/12/2025 CBC W/DIF F WBC 15.1 10'3/ uL 3.5-10 .5 high Not Available [facility] (Lab) [address] [facility] [facility], [place], [address], 05/13/2025 12:17:03 05/12/20 25 05/12/2025 CBC W/DIF F RBC 3.60 10'6/ uL (based on docume nted legal sex) 3.80-5 .20 low Not Available [facility] (Lab) [address] [facility], [place], [address], 05/13/2025 12:17:03 05/12/20 25 05/12/2025 CBC W/DIF F HGB 10.5 g/dL (based on docume nted legal sex) 11.6-1 5.4 low Not Available [facility] (Lab) [address] [facility], [place], [address], 05/13/2025 12:17:03 05/12/20 25 05/12/2025 CBC W/DIF F HCT 32.2 % (based on docume nted legal sex) 34.0-4 5.0 low Not Available [facility] (Lab) [address] [facility], [place], [address], 05/13/2025 12:17:03 05/12/2005/12/2025 CBC W/DIF F MCV 89.4 fL 80.0-9 9.0 Not Available [facility] (Lab) [address] [facility], [place], [address], 05/13/2025 12:17:03 05/12/20 25 05/12/2025 CBC W/DIF F MCH 29.2 pg 27.0-3 4.0 Not Available [facility] (Lab) [address] [facility], [place], [address], 05/13/2025 12:17:03 05/12/20 25 05/12/2025 CBC W/DIF F MCHC 32.6 g/dL 32.0-3 5.5 Not Available [facility] (Lab) [address] [facility], [place], [address], 05/13/2025 12:17:03 05/12/2005/12/2025 CBC W/DIF F RDW 14.6 % 11.0-1 5.0 Not Available [facility] (Lab) [address] [facility], [place], [address], 05/13/2025 12:17:03 05/12/2005/12/2025 CBC W/DIF F plt 296 10'3/ uL 150-40 0 Not Available [facility] (Lab) [address] [facility], [place], [address], 05/13/2025 12:17:03 05/12/2005/12/2025 CBC W/DIF F MPV 11.1 fL 8.8-12 .1 Not Available [facility] (Lab) [address] [facility], [place], [address], 05/13/2025 12:17:03 05/12/2005/12/2025 CBC W/DIF F NRBC's 0.0 % 0.0 Not Available [facility] (Lab) [address] [facility], [place], [address], 05/13/2025 12:17:03 05/12/20 25 05/12/2025 CBC W/DIF F absolute NRBCs 0.0 10'3/ uL no refere nce range establ ished Not Available [facility] (Lab) [address] [facility], [place], [address], 05/13/2025 12:17:03 05/12/20 25 05/12/2025 CBC W/DIF F neutrophils 74.6 % 34.0-7 3.0 high Not Available [facility] (Lab) [address] [facility], [place], [address], 05/13/2025 12:17:03 05/12/20 25 05/12/2025 CBC W/DIF F lymphocytes 17.1 % 15.0-5 0.0 Not Available [facility] (Lab) [address] [facility], [place], [address], 05/13/2025 12:17:03 05/12/20 25 05/12/2025 CBC W/DIF F monocytes 5.8 % 1.0-15 .0 Not Available [facility] (Lab) [address] [facility], [place], [address], 05/13/2025 12:17:03 05/12/20 25 05/12/2025 CBC W/DIF F eosinophils 0.8 % 0.0-8. 0 Not Available [facility] (Lab) [address] [place], [address], 05/13/2025 12:17:03 05/12/20 25 05/12/2025 CBC W/DIF F basophils 0.3 % 0.0-2. 0 Not Available [facility] (Lab) [address] [place], [address], 05/13/2025 12:17:03 05/12/2005/12/2025 CBC W/DIF F immature granulocytes 1.4 % no define d refere nce range Immat ure Granu locyt es (IG) repre sents autom ated enume ratio n of Metam yeloc ytes, Myelo cytes and Promy elocy joel when IG is < 5%. Blast s are not inclu ded in IG and repor gordo separ ately if prese nt. Not Available [facility] (Lab) [address] [facility], [place], [address], 05/13/2025 12:17:03 05/12/2005/12/2025 CBC W/DIF F absolute neutrophils 11.3 10'3/ uL 1.5-8. 0 high Not Available [facility] (Lab) [address] [facility], [place], [address], 05/13/2025 12:17:03 05/12/20 25 05/12/2025 CBC W/DIF F absolute lymphocytes 2.6 10'3/ uL 1.0-4. 0 Not Available [facility] (Lab) [address] [facility], [place], [address], 05/13/2025 12:17:03 05/12/20 25 05/12/2025 CBC W/DIF F absolute monocytes 0.9 10'3/ uL 0.2-1. 0 Not Available [facility] (Lab) [address] [facility], [place], [address], 05/13/2025 12:17:03 05/12/2005/12/2025 CBC W/DIF F absolute eosinophils 0.1 10'3/ uL 0.0-0. 6 Not Available [facility] (Lab) [address] [place], [address], 05/13/2025 12:17:03 05/12/20 25 05/12/2025 CBC W/DIF F absolute basophils 0.0 10'3/ uL 0.0-0. 3 Not Available [facility] (Lab) [address], [place], [address], 05/13/2025 12:17:03 05/12/20 25 05/12/2025 CBC W/DIF F absolute immature granulocytes 0.2 10'3/ uL 0.00-0 .10 high Refer ence range s for nonbi nary/ inter sex or unspe cifie d gende r patie nts have not been estab lishe d. Phyllis e refer to the follo wing table for range s estab lishe d for cisge nder patie nts and evalu ate in the clini nico melba xt of the indiv idual patie nt: https ://la and book. nm.or g/gen derx Not Available [facility] (Lab) [address], [place], [address], 05/13/2025 12:17:03 05/12/20 25 05/12/2025 TYPE/ RH/SC REEN ABO/Rh type O POS Not Available [facility] (Lab) [address], [place], [address], 05/13/2025 12:17:03 05/12/2005/12/2025 TYPE/ RH/SC REEN antibody screen NEG Not Available [facility] (Lab) [address] [facility], [place], [address], 05/13/2025 12:17:03 05/12/2005/12/2025 TYPE/ RH/SC REEN exp date 2024 23:59 Not Available [facility] (Lab) [address], [place], [address], 05/13/2025 12:17:03 05/12/20 25 05/12/2025 HEMOG LOBIN A1C hemoglobin A1C 4.9 % 4.0-5. 6 The Ameri can [employer] joel [employer] iatio n recom mends that a prima ry goal of thera amber roberts d be a HBA1C of < 7% and that physi ciachetan roberts d reeva luate the treat ment regim en in patie nts with HBA1C value s consi stent ly > 8%. <5.7% Stefanie l 5.7 - 6.4% Incre ased risk for diabe joel >=6.5 % Diagn ostic of diabe joel <7.0% Goal of thera py >8.0% Actio n sugge sted Not Available [facility] (Lab) [address] [facility], [place], [address], 05/13/2025 12:17:04 05/12/2005/12/2025 RPR SCREE N, REFLE X TITER /CONF IRMAT ION RPR qualitative Nonrea ctive nonrea ctive Not Available [facility] (Lab) [address] [facility] [facility], [place], [address], 05/13/2025 12:17:04 05/12/2005/12/2025 CT/GC AND TRICH OMONA S VAGIN ZOHAIB (RRNA ), URINE chlamydia trachomatis, PCR Negati ve negati ve Not Available [facility] (Lab) [address] [facility] [facility], [place], [address], 05/13/2025 15:07:55 05/12/20 25 05/12/2025 CT/GC AND TRICH OMONA S VAGIN ZOHAIB (RRNA ), URINE neisseria gonorrhoeae, PCR Negati ve negati ve Not Available [facility] (Lab) [address] [facility], [place], [address], 05/13/2025 15:07:55 05/12/20 25 05/12/2025 CT/GC AND TRICH OMONA S VAGIN ZOHAIB (RRNA ), URINE trichomonas vaginalis ribosomal RNA (rrna) Negati ve negati ve Not Available [facility] (Lab) [address] [facility], [place], [address], 05/13/2025 15:07:55 06/15/20 25 06/15/2025 HEMAT OCRIT (HCT) HCT 29.3 % (based on docume nted legal sex) 34.0-4 5.0 low Not Available [facility] (Lab) [address] [facility], [place], [address], 06/16/2025 12:51:37 06/15/20 25 06/15/2025 HEMOG LOBIN (HGB) HGB 9.2 g/dL (based on docume nted legal sex) 11.6-1 5.4 low Not Available [facility] (Lab) [address] [facility], [place], [address], 06/16/2025 12:51:38 06/15/20 25 06/15/2025 GTT - GESTA RAMANA L SCREE N, ACOG OB glucose, 1 hour screen 117 mg/dL 70-135 Not Available [facility] (Lab) [address] [facility], [place], [address], 06/16/2025 12:51:38 06/15/20 25 06/15/2025 HIV 1/2 ANTIG EN/AN TIBOD Y, REFLE X CONFI RMATI ON HIV antigen/anti body Nonrea ctive nonrea ctive HIV-1 antig en and HIV-1 /HIV- 2 antib odies were not detec gordo. No labor atory evide nce of HIV infec tion. Not Available [facility] (Lab) [address] [facility], [place], [address], 06/16/2025 12:51:39 06/15/20 25 06/15/2025 RPR SCREE N, REFLE X TITER /CONF IRMAT ION RPR qualitative Nonrea ctive nonrea ctive Not Available [facility] (Lab) [address] [facility], [place], [address], 06/16/2025 12:51:40 08/11/20 25 08/11/2025 CULTU RE: [...] Resul ting Lab: [facility] [address] [facility] [address] Tel: CULTU RE ----- ----- ----- --- No Group B strep isola gordo at 2 days (nilda ctive broth enhan cemen t) Not Available [facility] (Lab) [address], [place], [address], 08/15/2025 15:21:16 07/13/2007/13/2025 US, obste tric, follo w-up No observ ation record ed. [email or web address] [place] [address], [place], [address], 07/13/2025 18:01:23 07/13/2007/13/2025 US, obste tric, follo w-up No observ ation record ed. [email or web address] [facility] [address] [place] [address], [place], [address], 07/13/2025 19:53:12 Result Notes None recorded. Problems Name Problem SNOMED Code Status Onset Date Resolution Date Notes Provider Name and Address Organization Details Recorded Time Asthma 898608381 Completed mild-exe [facility]ced [facility] 11:02:05 Increase d lactatio n 61960819 Completed Nadeem lomeli [facility] 3 11:02:05 Pregnanc y 24219345 Completed 202208/14/2023 Tisha lomeli [facility] 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 3 11:02:05 Anemia 803506352 Completed 2022 bid slowfe Nadeem Boudreaux [facility] 3 11:02:05 Pregnanc y 99460090 Completed 202309/24/2024 Tisha Sifuentes [facility] 5 17:22:27 Anemia 933972541 Completed 2023 iron infusion s per SP Nadeem Boudreaux [facility] 4 11:39:43 Pregnanc y 92009849 Active 2024 Tisha Maria [facility] 5 17:22:27 Iron deficien cy anemia 04943026 Active 2024 Darya johnson samuel g iron infusion . 07/01/25 order faxed 07/01 (IV iron infusion s previous pregnanc y) Darya Aryan [facility], [facility] 5 14:25:40 Steriliz ation requeste d [id number] Active 2024 tubal papers signed 07/27 JOSÉ LOOMIS MD [address], [place], [address], [facility] 5 15:13:20 Problem Notes None recorded. Procedures Surgical History Date Name Laterality Status Provider Name and Address Organization Details Recorded Time 09/30/19 21 Date of Last Colonoscopy completed Brigida Calle [facility] 01/10/2023 12:29:01 09/30/19 21 endoscopy completed Brigida Calle [facility] 01/10/2023 12:30:43 09/30/19 21 Colonoscopy completed Brigida Calle [facility] 01/10/2023 12:30:50 Imaging Results None recorded. Procedure Notes None recorded. Medical Equipment None Reported. Allergies Allergen ID Allergen Name Allergen Category Reaction Reaction Severity Criticality Documentation Date Start Date Code Code System Note Provider Name and Address Organization Details Recorded Time Substance with sulfonami de structure and antibacte rial mechanism of action (substanc e) medicatio n swelling Not available Not available 01/10/2023 40445 8003 SNOMED Radha Betancur [facility] 3 11:53:58 Medications Name Sig Start [...] Updated DateTime 08/11/2025 167.64 cm 34.7 kg/m2 07244.64 g 111/76 mm[Hg] Jeaneth Beltrán [facility] 08/11/2025 17:08:35 Social History Question Answer Notes LastModified by Organizat ion Details LastModified Time Tobacco Smoking Status Never Smoker Catia Mcmillan armani, [facility] 07/15/2023 14:04:09 Are You Blind [...] Has Tobacco Cessation Counseling Been Provided? No [email or web address] Information not available 07/15/2023 Have You Used IV Drugs? No Information not available 05/14/2023 Do You Have Difficulty Walking Or Climbing Stairs? No [email or web address] Information not available 07/15/2023 Sex: Unknown Functional [...] available 05/14/2023 Are you currently employed? No [email or web address] Information not available 10/13/2024 Are you able to walk independently without assistance or assistive devices? [email or web address] Information not available 05/14/2023 Are you able to care for yourself independently? Yes [email or web address] Information not available 07/15/2023 Do you have difficulty dressing, bathing, grooming, or toileting? No [email or web address] Information not available 07/15/2023 Do you or have you ever used e-cigarettes or vape? Current user of electronic cigarettes Information not available 07/15/2023 What is your exercise level? Occasional Information not available 05/14/2023 Mental Status Question Answer Note LastModified by Organization D etails LastModified Time Do you feel stressed (tense, restless, nervous, or anxious, or unable to sleep at night)? [id number] Information not available 05/14/2023 Family History Relationship Description Onset Age of this Age Resolved Age Notes LastModified by Organization Details LastModified Time Paternal Aunt Malignant neoplasm of breast [email or web address] Not available 01/10 12:29:46 Paternal Aunt Malignant neoplasm of breast [email or web address] Not available 2023 14:30:13 Medical History Condition Response Allergies (Food, seasonal, environmental ) N Other N Drug/Latex Allergies/Reactions N Blood Transfusion N Breast Cancer N Dermatologic Disorders N Lung Disease N Defects or Inherited Disease N Breast Problem N Gestational Diabetes N Hematologic disorders N Anesthesia Complications N History of STI N Deep Vein Thrombosis N Polycystic ovary syndrome N Anxiety Disorder N Autoimmune disease N Arthritis N Polyps N Infertility N Acid Reflux (GERD) N History of abnormal pap N Cancer N Varicosities N Stroke N Neurologic/Epilepsy N Endometriosis N High Cholesterol N Fibromyalgia N Headaches N Kidney Disease N Heart Problems N [...] ICD10 Code Diagnosis IMO Codes Diagnosis Note [id number] JOSÉ LOOMIS MD [place] [address] [address] 07/13/2025 17:03:04 07/13/2025 17:48:06 High risk 57045316 O09.33 O09.893 Z3A.31 9242135 [id number] JOSÉ LOOMIS MD [place] [address] [address] 07/13/2025 17:03:22 07/14/2025 08:25:54 Iron deficiency anemia 26043209 D50.9 60193209 - starting Fe infusions tomorrow Finding of pattern of 333737104 O09.899 25227651 - growth US wnl, EFW 41% at 32 weeks Gestation period, 31 weeks 37991759 Z3A.31 4157993 - continue PNV [id number] JOSÉ LOOMIS MD [place] [address] [address] 07/27/2025 12:26:45 07/29/2025 15:15:39 Sterilization requested 123241420 Z30.2 77098643 - patient desires permanent sterilizat ion- discussed risks, benefits, and alternativ es of bilateral salpingect jose, including risks of bleeding, infection and injury to surroundin g organs. Also discussed alternativ e contracept deisi options including partner vasectomy and patient declines.- tubal papers signed Gestation period, 34 weeks 96349448 Z3A.34 5561778 - continue PNV Iron defic iency anemia 03409530 D50.9 94793835 - continuing Fe infusions tomorrow [id number] Jaspal Nuñez MD [place] [address] [address] 08/11/2025 16:54:13 08/12/2025 08:48:31 Health Concerns Section Related Observation LastModified by Organization Detai ls LastModified Time None Recorded Concern Status LastModified by Organization Details LastModified Time None Recorded Payers Encounter Date Sequence Insurance Name Policy Number Policy Paz Covered Member ID Paz Member ID Guarantor Name 08/11/2025 1 [facility] (MEDICAID HMO) [id number] [facility] [id number] [facility] Notes Date Note Type Note Provider Name and Address Organization Details Recorded Time 08/11/2025 text/html Generic HPI TemplateReported by Patient Jaspal Nuñez MD [address], [place], [address], [facility] 08/11/2025 17:38:57 OBGyn Episode Ob Episode Information Episode Created Date Number of Fetuses Patient Bloodtype Patient rh Status Prepregnancy Weight lbs Domestic Partner Domestic Partner Phone Father Name Field Crew Chief Status 05/12/20 25 1 O Positive 215 OPEN Fetus Data First Name Last Name Admitted to NICU Weight (g) Sex Living Outcome Pediatric Complications Fetus ID Race Codes Race Delivery Type [id number] Problems Problem Notes iron infusions in previous p regnancy Problem Name Start Date End Date Resolution Snomed Code Not e Iron deficiency anemia 07/01/2025 523784 02 Darya is arranging iron infusion. 07/01/25 order faxed 07/01 (IV iron infusions previous ) Sterilization requested 07/29/2025 [id number] tubal papers signed 07/27 Christopher Calculation [...] Type Weight in lbs Pre/Post Dialysis Refused 218.525309182348 BP Diastolic BP Location Tested BP Systolic BP Type 74 L arm 104 sitting Fetus Heart Rate Present A Present Fetus Movement A Yes Comments Patient presents to [facility] care. Hx of short interval x2 [...] Type Weight in lbs Pre/Post Dialysis Refused 218.520881280095 BP Diastolic BP Location Tested BP Systolic [...] Weight in lbs Pre/Post Dialysis Refused Weight 217.519615314411 BP Diastolic BP Location Tested BP Systolic [...] Weight in lbs Pre/Post Dialysis Refused Weight 214.433645487866 BP Diastolic BP Location Tested BP Systolic [...] Type Weight in lbs Pre/Post Dialysis Refused 213.976153025023 BP Diastolic BP Location Tested BP Systolic [...] Weight in lbs Pre/Post Dialysis Refused Weight 214.808466050277 BP Diastolic BP Location Tested BP Systolic [...] Weight in lbs Pre/Post Dialysis Refused Weight 212.035749885105 BP Diastolic BP Location Tested BP Systolic [...] Weight in lbs Pre/Post Dialysis Refused Weight 210.722997590471 BP Diastolic BP Location Tested BP Systolic [...]
--- OUTSIDE RECORDS SUMMARY | 2025-09-03 00:07 | XMS_ITS | Continuity of Care Document ---
Author Organization [facility] Address [address] [place] [address] Assessment No assessment recorded. Plan of Treatment [...] [facility] n[facility] [address], [place], [address], 05/18/2025 02:31:53 05/18/20 25 05/18/2025 [UNIT Y] ANEUP LOIDY NIPT 22Q11.2 microdeletio n LOW RISK <1 in 10,000 normal Not Available [facility] [address], [place], [address], 05/18/2025 02:31:53 05/18/20 25 05/18/2025 [UNIT Y] ANEUP LOIDY NIPT sex chromosome aneuploidy NOT DETECT ED normal Not Available [facility] [address], [place], [address], 05/18/2025 02:31:53 05/18/20 25 05/18/2025 [UNIT Y] ANEUP LOIDY NIPT monosomy X LOW RISK <1 in 10,000 normal Not Available [facility] [address], [place], [address], 05/18/2025 02:31:53 05/18/20 25 05/18/2025 [UNIT Y] ANEUP LOIDY NIPT trisomy 13 LOW RISK <1 in 10,000 normal Not Available [facility] [address], [place], [address], 05/18/2025 02:31:53 05/18/20 25 05/18/2025 [UNIT Y] ANEUP LOIDY NIPT trisomy 18 LOW RISK <1 in 10,000 normal Not Available [facility] [address], [place], [address], 05/18/2025 02:31:53 05/18/20 25 05/18/2025 [UNIT Y] ANEUP LOIDY NIPT trisomy 21 LOW RISK <1 in 10,000 normal Not Available [facility] [address], [place], [address], 05/18/2025 02:31:53 05/18/20 25 05/18/2025 [UNIT Y] ANEUP LOIDY NIPT sex MALE normal Not Available [facility] [address], [place], [address], 05/18/2025 02:31:53 05/18/20 25 05/18/2025 [UNIT Y] ANEUP LOIDY NIPT gestation SINGLE TON normal Not Available [facility] [address], [place], [address], 05/18/2025 02:31:53 05/18/20 25 05/18/2025 [UNIT Y] ANEUP LOIDY NIPT for detailed report, see pdf See PDF normal Not Available [facility] [address], [place], [address], 05/18/2025 02:31:53 05/12/2005/12/2025 HIV 1/2 ANTIG EN/AN TIBOD Y, REFLE X CONFI RMATI ON HIV antigen/anti body Nonrea ctive nonrea ctive HIV-1 antig en and HIV-1 /HIV- 2 antib odies were not detec gordo. No labor atory evide nce of HIV infec tion. Not Available [facility] (Lab) [address], [place], [address], 05/13/2025 12:17:00 05/12/2005/12/2025 HEPAT ITIS C ANTIB LAMONTE SCREE N, REFLE X TO CONFI RMATI ON hepatitis C antibody Non-re active non-re active Antib odies to HCV Not Detec gordo, does not exclu de the possi bilit y of expos ure to HCV. Not Available [facility] (Lab) [address], [place], [address], 05/13/2025 12:17:01 05/12/2005/12/2025 HEPAT ITIS B SURFA CE ANTIG EN hepatitis B surface antigen Non-re active non-re active This assay was perfo rmed using [employer] ratio n reage nts and test kits. Value s obtai jefry with other assay metho ds or kits canno t be used inter richmond eably . Not Available [facility] (Lab) [address], [place], [address], 05/13/2025 12:17:01 05/12/2005/12/2025 TSH, REFLE X FREE T4 TSH 1.94 uIU/m L 0.30-5 .33 Not Available [facility] (Lab) [address], [place], [address], 05/13/2025 12:17:02 05/12/2005/12/2025 RUBEL LA IGG ANTIB LAMONTE, QUANT rubella antibodies, IgG Reacti ve reacti ve Not Available [facility] (Lab) [address], [place], [address], 05/13/2025 12:17:02 05/12/2005/12/2025 RUBEL LA IGG ANTIB LAMONTE, QUANT rubella antibodies, IgG quant 113.7 IU/mL >=10 Non-r eacti ve (Non- Immun e) <10 IU/mL React deisi (Immu ne) > or = 10 IU/mL Not Available [facility] (Lab) [address], [place], [address], 05/13/2025 12:17:02 05/12/2005/12/2025 CBC W/DIF F WBC 15.1 10'3/ uL 3.5-10 .5 high Not Available [facility] (Lab) [address], [place], [address], 05/13/2025 12:17:03 05/12/20 25 05/12/2025 CBC W/DIF F RBC 3.60 10'6/ uL (based on docume nted legal sex) 3.80-5 .20 low Not Available [facility] (Lab) [address], [place], [address], 05/13/2025 12:17:03 05/12/20 25 05/12/2025 CBC W/DIF F HGB 10.5 g/dL (based on docume nted legal sex) 11.6-1 5.4 low Not Available [facility] (Lab) [address], [place], [address], 05/13/2025 12:17:03 05/12/2005/12/2025 CBC W/DIF F HCT 32.2 % (based on docume nted legal sex) 34.0-4 5.0 low Not Available [facility] (Lab) [address], [place], [address], 05/13/2025 12:17:03 05/12/2005/12/2025 CBC W/DIF F MCV 89.4 fL 80.0-9 9.0 Not Available [facility] (Lab) [address], [place], [address], 05/13/2025 12:17:03 05/12/2005/12/2025 CBC W/DIF F MCH 29.2 pg 27.0-3 4.0 Not Available [facility] (Lab) [address], [place], [address], 05/13/2025 12:17:03 05/12/20 25 05/12/2025 CBC W/DIF F MCHC 32.6 g/dL 32.0-3 5.5 Not Available [facility] (Lab) [address], [place], [address], 05/13/2025 12:17:03 05/12/2005/12/2025 CBC W/DIF F RDW 14.6 % 11.0-1 5.0 Not Available [facility] (Lab) [address], [place], [address], 05/13/2025 12:17:03 05/12/20 25 05/12/2025 CBC W/DIF F plt 296 10'3/ uL 150-40 0 Not Available [facility] (Lab) [address], [place], [address], 05/13/2025 12:17:03 05/12/2005/12/2025 CBC W/DIF F MPV 11.1 fL 8.8-12 .1 Not Available [facility] (Lab) [address], [place], [address], 05/13/2025 12:17:03 05/12/20 25 05/12/2025 CBC W/DIF F NRBC's 0.0 % 0.0 Not Available [facility] (Lab) [address] [place], [address], 05/13/2025 12:17:03 08/13/20 25 05/12/2025 CBC W/DIF F absolute NRBCs 0.0 10'3/ uL no refere nce range establ ished Not Available [facility] (Lab) [address], [place], [address], 05/13/2025 12:17:03 05/12/20 25 05/12/2025 CBC W/DIF F neutrophils 74.6 % 34.0-7 3.0 high Not Available [facility] (Lab) [address], [place], [address], 05/13/2025 12:17:03 05/12/20 25 05/12/2025 CBC W/DIF F lymphocytes 17.1 % 15.0-5 0.0 Not Available [facility] (Lab) [address], [place], [address], 05/13/2025 12:17:03 05/12/20 25 05/12/2025 CBC W/DIF F monocytes 5.8 % 1.0-15 .0 Not Available [facility] (Lab) [address], [place], [address], 05/13/2025 12:17:03 05/12/20 25 05/12/2025 CBC W/DIF F eosinophils 0.8 % 0.0-8. 0 Not Available [facility] (Lab) [address], [place], [address], 05/13/2025 12:17:03 05/12/20 25 05/12/2025 CBC W/DIF F basophils 0.3 % 0.0-2. 0 Not Available [facility] (Lab) [address] [place], [address], 05/13/2025 12:17:03 05/12/20 25 05/12/2025 CBC W/DIF [...] separ ately if prese nt. Not Available [facility] (Lab) [address], [place], [address], 05/13/2025 12:17:03 05/12/20 25 05/12/2025 CBC W/DIF F absolute neutrophils 11.3 10'3/ uL 1.5-8. 0 high Not Available [facility] (Lab) [address], [place], [address], 05/13/2025 12:17:03 05/12/20 25 05/12/2025 CBC W/DIF F absolute lymphocytes 2.6 10'3/ uL 1.0-4. 0 Not Available [facility] (Lab) [address], [place], [address], 05/13/2025 12:17:03 05/12/20 25 05/12/2025 CBC W/DIF F absolute monocytes 0.9 10'3/ uL 0.2-1. 0 Not Available [facility] (Lab) [address], [place], [address], 05/13/2025 12:17:03 05/12/20 25 05/12/2025 CBC W/DIF F absolute eosinophils 0.1 10'3/ uL 0.0-0. 6 Not Available [facility] (Lab) [address], [place], [address], 05/13/2025 12:17:03 05/12/20 25 05/12/2025 CBC W/DIF F absolute basophils 0.0 10'3/ uL 0.0-0. 3 Not Available [facility] (Lab) [address], [place], [address], 05/13/2025 12:17:03 05/12/20 25 05/12/2025 CBC W/DIF [...] lizama book. nm.or g/gen derx Not Available [facility] (Lab) [address], [place], [address], 05/13/2025 12:17:03 05/12/2005/12/2025 TYPE/ RH/SC REEN ABO/Rh type O POS Not Available [facility] (Lab) [address], [place], [address], 05/13/2025 12:17:03 05/12/20 25 05/12/2025 TYPE/ RH/SC REEN antibody screen NEG Not Available [facility] (Lab) [address], [place], [address], 05/13/2025 12:17:03 05/12/20 25 05/12/2025 TYPE/ RH/SC REEN exp date 2024 23:59 Not Available [facility] (Lab) [address] [place], [address], 05/13/2025 12:17:03 05/12/2005/12/2025 HEMOG LOBIN A1C hemoglobin [...] >8.0% Actio n sugge sted Not Available [facility] (Lab) [address], [place], [address], 05/13/2025 12:17:04 05/12/20 25 05/12/2025 RPR SCREE N, REFLE X TITER /CONF IRMAT ION RPR qualitative Nonrea ctive nonrea ctive Not Available [facility] (Lab) [address], [place], [address], 05/13/2025 12:17:04 05/12/20 25 05/12/2025 CT/GC AND TRICH OMONA S VAGIN ZOHAIB (RRNA ), URINE chlamydia trachomatis, PCR Negati ve negati ve Not Available [facility] (Lab) [address], [place], [address], 05/13/2025 15:07:55 05/12/20 25 05/12/2025 CT/GC AND TRICH OMONA S VAGIN ZOHAIB (RRNA ), URINE neisseria gonorrhoeae, PCR Negati ve negati ve Not Available [facility] (Lab) [address], [place], [address], 05/13/2025 15:07:55 05/12/20 25 05/12/2025 CT/GC AND TRICH OMONA S VAGIN ZOHAIB (RRNA ), URINE trichomonas vaginalis ribosomal RNA (rrna) Negati ve negati ve Not Available [facility] (Lab) [address], [place], [address], 05/13/2025 15:07:55 06/15/20 25 06/15/2025 HEMAT OCRIT (HCT) HCT 29.3 % (based on docume nted legal sex) 34.0-4 5.0 low Not Available [facility] (Lab) [address], [place], [address], 06/16/2025 12:51:37 06/15/20 25 06/15/2025 HEMOG LOBIN (HGB) HGB 9.2 g/dL (based on docume nted legal sex) 11.6-1 5.4 low Not Available [facility] (Lab) [address] [place], [address], 06/16/2025 12:51:38 06/15/20 25 06/15/2025 GTT - GESTA RAMANA L SCREE N, ACOG OB glucose, 1 hour screen 117 mg/dL 70-[address] [facility] (Lab) [address] [place], [address], 06/16/2025 12:51:38 06/15/20 25 06/15/2025 HIV 1/2 ANTIG EN/AN TIBOD Y, REFLE X CONFI RMATI ON HIV antigen/anti body Nonrea ctive nonrea ctive HIV-1 antig en and HIV-1 /HIV- 2 antib odies were not detec gordo. No labor atory evide nce of HIV infec tion. Not Available [facility] (Lab) [address] [place], [address], 06/16/2025 12:51:39 06/15/20 25 06/15/2025 RPR SCREE N, REFLE X TITER /CONF IRMAT ION RPR qualitative Nonrea ctive nonrea ctive Not Available [facility] (Lab) [address] [place], [address], 06/16/2025 12:51:40 08/11/20 25 08/11/2025 CULTU RE: [...] Resul ting Lab: [facility] [address] [facility] [address] Tel: CULTU RE ----- ----- ----- --- No Group B strep isola gordo at 2 days (nilda ctive broth sophie patel t) Not Available [facility] (Lab) [address], [place], [address], 08/15/2025 15:21:16 07/13/2007/13/2025 US, obste tric, follo w-up No observ ation record ed. [email or web address] [place] [address], [place], [address], 07/13/2025 18:01:23 07/13/2007/13/2025 US, obste tric, follo w-up No observ ation record ed. [email or web address] [facility] [address] [place] [address], [place], [address], 07/13/2025 19:53:12 Result Notes None recorded. Problems Name Problem SNOMED Code Status Onset Date Resolution Date Notes Provider Name and Address Organization Details Recorded Time Asthma 167007980 Completed mild-exe rcise-in duced Nadeem Boudreaux [facility] 3 11:02:05 Increase d lactatio n 19157419 Completed Nadeem Boudreaux [facility] 3 11:02:05 Pregnanc y 02267707 Completed 202208/14/2023 Tisha Sifuentes [facility] 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 3 11:02:05 Anemia 939425194 Completed 2022 bid slowfe Nadeem Boudreaux [facility] 3 11:02:05 Pregnanc y 27163928 Completed 202309/24/2024 Tisha Sifuentes [facility] 5 17:22:27 Anemia 909366509 Completed 2023 iron infusion s per SP Nadeem Boudreaux [facility] 4 11:39:43 Pregnanc y 15670312 Active 2024 Tisha Sifuentes [facility] 5 17:22:27 Iron deficien cy anemia 79393785 Active 2024 Darya johnson arrangin g iron infusion . 07/01/25 order faxed 07/01 (IV iron infusion s previous pregnanc y) Darya Baeza [facility] 5 14:25:40 Steriliz ation requeste d [id number] Active 2024 tubal papers signed 07/27 JOSÉ LOOMIS MD [address], [place], [address], [facility] 5 15:13:20 Problem Notes None recorded. Procedures Surgical History Date Name Laterality Status Provider Name and Address Organization Details Recorded Time 09/30/19 21 Date [facility] 01/10/2023 12:29:01 09/30/19 21 [facility] 01/10/2023 12:30:43 09/30/19 21 [facility] 01/10/2023 12:30:50 Imaging Results None recorded. Procedure Notes None recorded. Medical Equipment None Reported. Allergies Allergen ID Allergen Name Allergen Category Reaction Reaction Severity Criticality Documentation Date Start Date Code Code System Note Provider Name and Address Organization Details Recorded Time Substance with sulfonami de structure and antibacte rial mechanism of action (substanc e) medicatio n swelling Not available Not available 01/10/2023 47523 8003 SNOMED Radha Betancur [facility] 3 11:53:58 Medications Name Sig Start [...] Updated DateTime 08/20/2025 167.64 cm 34.2 kg/m2 34147.58 g 124/87 mm[Hg] Cyndy Mccain [facility] 08/20/2025 16:45:44 Social History Question Answer Notes LastModified by Organizat ion Details LastModified Time Tobacco Smoking Status Never Smoker Catia Mcmillan armani, [facility] 07/15/2023 14:04:09 Are You Blind [...] available 05/14/2023 Are You Sexually Active? Yes [email or web address] Information not available 10/13/2024 Do You Have Smoke And Carbon Monoxide Detectors In Your Home? Yes Information not available 05/14/2023 At What Age Did You Start Smoking Tobacco? 11 Information not available 05/14/2023 How Much Tobacco Do You Smoke? No Information not available 05/14/2023 Do You Use Sunscreen Routinely? Yes Information not available 05/14/2023 Has Tobacco Cessation Counseling Been Provided? No [email or web address] Information not available 07/15/2023 Have You Used IV Drugs? No Information not available 05/14/2023 Do You Have Difficulty Walking Or Climbing Stairs? No [email or web address] Information not available 07/15/2023 Sex: Unknown Functional Status Question Answer Note LastModified by Organizat ion Details LastModified Time Do you use any illicit or recreational drugs? Yes Information not available 05/14/2023 Do you or have you ever used any other forms of tobacco or nicotine? Yes [email or web address] Information not available 07/15/2023 What is your level of alcohol consumption? None Information not available 05/14/2023 Are you currently employed? No [email or web address] Information not available 10/13/2024 Are you able to walk independently without assistance or assistive devices? [email or web address] Information not available 05/14/2023 Are you able to care for yourself independently? Yes Information not available 07/15/2023 Do you have difficulty dressing, bathing, grooming, or toileting? No [email or web address] Information not available 07/15/2023 Do you or have you ever used e-cigarettes or vape? Current user of electronic cigarettes [email or web address] Information not available 07/15/2023 What is your exercise level? Occasional Information not available 05/14/2023 Mental Status Question Answer Note LastModified by Organization D etails LastModified Time Do you feel stressed (tense, restless, nervous, or anxious, or unable to sleep at night)? [id number] Information not available 05/14/2023 Family History Relationship Description Onset Age of this Age Resolved Age Notes LastModified by Organization Details LastModified Time Paternal Aunt Malignant neoplasm of breast [email or web address] Not available 01/10 12:29:46 Paternal Aunt Malignant neoplasm of breast [email or web address] Not available 2023 14:30:13 Medical History Condition Response Allergies (Food, seasonal, environmental ) N Other N Breast Cancer N Blood Transfusion N Drug/Latex Allergies/Reactions N Dermatologic Disorders N Lung Disease N [...] ICD10 Code Diagnosis IMO Codes Diagnosis Note [id number] JOSÉ LOOMIS MD [place] [address],[facility] [place] [address] 07/27/2025 12:26:45 07/29/2025 15:15:39 Sterilization requested [id number] Z30.2 [id number] - patient desires permanent sterilizat ion- discussed risks, benefits, and alternativ es of bilateral salpingect jose, including risks of bleeding, infection and injury to surroundin g organs. Also discussed alternativ e contracept deisi options including partner vasectomy and patient declines.- tubal papers signed Gestation period, 34 weeks 60460660 Z3A.34 4999019 - continue PNV Iron defic iency anemia 60497756 D50.9 28226607 - continuing Fe infusions tomorrow [id number] Jaspal Nuñez MD [place] [address] [address] 08/11/2025 16:54:13 08/12/2025 08:48:31 [id number] JOSÉ LOOMIS MD [place] [address] [address] 08/20/2025 16:38:58 08/20/2025 17:03:51 Iron deficiency anemia 85092639 D50.9 [id number] Gestation period, 37 weeks 50802564 Z3A.37 [id number] - continue PNV Health Concerns Section Related Observation LastModified by Organization Detai ls LastModified Time None Recorded Concern Status LastModified by Organization Details LastModified Time None Recorded Payers Encounter Date Sequence Insurance Name Policy Number Policy Paz Covered Member ID Paz Member ID Guarantor Name 08/20/2025 1 [facility] (MEDICAID HMO) [id number] [facility] [id number] [facility] Notes Date Note Type Note Provider Name and Address Organization Details Recorded Time 08/20/2025 text/html Generic HPI TemplateReported by Patient JOSÉ LOOMIS MD [address], [place], [address], [facility] 08/20/2025 17:03:25 OBGyn Episode Ob Episode Information Episode Created Date Number of Fetuses Patient Bloodtype Patient rh Status Prepregnancy Weight lbs Domestic Partner Domestic Partner Phone Father Name [employer] Coord[employer] Status 05/12/20 25 1 O Positive 215 OPEN Fetus Data First Name Last Name Admitted to NICU Weight (g) Sex Living Outcome Pediatric Complications Fetus ID Race Codes Race Delivery Type [id number] Problems Problem Notes iron infusions in previous p regnancy Problem Name Start Date End Date Resolution Snomed Code Not e Iron deficiency anemia 07/01/2025 425405 02 Darya is arranging iron infusion. 07/01/25 order faxed 07/01 (IV iron infusions previous ) Sterilization requested 07/29/2025 23754 6000 tubal papers signed 07/27 Christopher Calculation [...] Type Weight in lbs Pre/Post Dialysis Refused 218.000603658108 BP Diastolic BP Location Tested BP Systolic BP Type 74 L arm 104 sitting Fetus Heart Rate Present A Present Fetus Movement A Yes Comments Patient presents to [facility] care. Hx of short interval x2 and [...] Type Weight in lbs Pre/Post Dialysis Refused 218.800991206586 BP Diastolic BP Location Tested BP Systolic [...] Weight in lbs Pre/Post Dialysis Refused Weight 217.692538167369 BP Diastolic BP Location Tested BP Systolic [...] Weight in lbs Pre/Post Dialysis Refused Weight 214.287599298251 BP Diastolic BP Location Tested BP Systolic [...] Type Weight in lbs Pre/Post Dialysis Refused 213.181957260948 BP Diastolic BP Location Tested BP Systolic [...] Weight in lbs Pre/Post Dialysis Refused Weight 214.969512164798 BP Diastolic BP Location Tested BP Systolic [...] Weight in lbs Pre/Post Dialysis Refused Weight 212.785994054846 BP Diastolic BP Location Tested BP Systolic [...] Weight in lbs Pre/Post Dialysis Refused Weight 210.957502968761 BP Diastolic BP Location Tested BP Systolic [...]
--- NOTE | 2025-09-03 00:42 | LDADM ---
This patient, Sravanthi Mace, was admitted to Labor/Delivery/Recovery 105 on 09/03/25 at 00:01. Plans for labor, pain management and were discussed with patient. Patient/family oriented to hospital policies and general routines including ID bracelet, bed and alarms, visiting hours, pain management, procedures, bathroom and other care routines, personal items, smoking policy, room service/diet and guest tray routines, security routines, and visiting hours. Patient/Family are encouraged to report perceived risks to care and to ask questions if they do not understand what they are told or what they should do. See OBIX for further documentation.
[2025-09-03] MEDS: LACTATED RINGERS 1,000 ML 125 ML IV CONT ×2 (00:54→04:37)
[2025-09-03] MEDS: OXYTOCIN 30 UNITS/NS 500 ML 30 UNITS/500 ML BAG IV CONT (00:54)
[2025-09-03 01:20] LABS: Hematocrit 31.4 % (37.0-47.0); Hemoglobin 10.3 g/dL (12.0-15.0); Immature Granulocyte Percent A 0.5 % (0-0.5); Lymphocytes Absolute Auto 2.11 K/mm3 (0.9-3.2); Mean Corpuscular HGB Conc 32.8 g/dl (32-36); Mean Corpuscular Hemoglobin 28.9 pg (26-34); Mean Corpuscular Volume 88.0 fl (80-100); Nucleated Red Blood Cells Absolute Auto 0.000 K/mm3 (0.0-0.012); Nucleated Red Blood Cells Perc 0.0 % (0.0-0.2); Platelet Count Result 201 k/mm3 (150-375); Red Blood Count 3.57 M/mm3 (4.2-5.4); White Blood Count 11.2 K/mm3 (4.5-10.0)
[2025-09-03 02:00] LABS: Syphilis IgG/IgM Antibody Non-Reactive (Nonreactive)
--- NOTE | 2025-09-03 04:40 | WPDANESEPPF ---
Anes - Initial Pre Proc Eval Procedure: Labor Epidural Date/Time: 09/03/25 04:40 Surgeon: Pietro Herrera MD Pre Op Diagnosis: Labor Pain Pre Op Diagnosis: IOL Patient Data Age: 20 Gender: F Height: 1.68 m Weight: 98.63 kg Last Vital Signs Temp 37.1 C 09/03/25 04:00 Pulse 79 09/03/25 04:15 BP 127/70 09/03/25 04:15 Pulse Ox 98 09/03/25 04:40 O2 Del Method Room Air 09/03/25 00:45 Allergies Allergy/AdvReac Type Severity Reaction Status Date / Time Sulfa (Sulfonamide Allergy Mild Swelling Verified 09/03/25 00:44 Antibiotics) Home Medications ?Medication ?Instructions ?Recorded ?Confirmed ?Type Classic 1 tab-cap PO DAILY 06/17/24 09/03/25 History ferrous sulfate 325 mg (65 mg 325 mg PO DAILY 08/21/24 09/03/25 History iron) tablet Laboratory Tests 09/03/25 00:38 WBC 11.2 H K/mm3 (4.5-10.0) RBC 3.57 L M/mm3 (4.2-5.4) Hgb 10.3 L g/dL (12.0-15.0) Hct 31.4 L % (37.0-47.0) MCV 88.0 fl (80-100) MCH 28.9 pg (26-34) MCHC 32.8 g/dl (32-36) RDW 16.5 H % (11.5-14.5) Plt Count 201 k/mm3 (150-375) MPV 11.9 H fl (7.4-10.4) Immature Gran % (Auto) 0.5 % (0-0.5) Neut % (Auto) 72.8 % (45.5-73.1) Lymph % (Auto) 18.9 % (18.3-44.2) [place] % (Auto) 7.1 % (2.6-8.5) Eos % (Auto) 0.3 % (0-4.4) Baso % (Auto) 0.4 % (0.2-1.2) Lymph # (Auto) 2.11 K/mm3 (0.9-3.2) [place] # (Auto) 0.8 H K/mm3 (0.1-0.6) Eos # (Auto) 0.0 K/mm3 (0-0.3) Baso # (Auto) 0.0 K/mm3 (0.0-0.1) Abs Immat Gran (auto) 0.06 H K/mm3 (0.00-0.031) Absolute Neuts (auto) 8.1 H K/mm3 (1.3-6.7) Absolute Nucleated RBC 0.000 K/mm3 (0.0-0.012) Nucleated RBC % 0.0 % (0.0-0.2) Syphilis IgG/IgM Ab Non-reactive (Nonreactive) Blood Type O Positive Antibody Screen Negative Patient hx anesthesia problems: none Family hx anesthesia problems: none Results Review: All pre-operative results and documents have been reviewed as part of the pre-operative evaluation. [facility] Past Medical History Medical History Encounter for screening examination for sexually transmitted disease Normal endoscopy Surgical History Surgical History No pertinent past surgical history Family History Family History Other Breast cancer Other Hypertension Social History Social History Smoking status: Never smoker Tobacco type: e-cigarettes/vaping Second hand tobacco smoke exposure: Yes Smoking end date: 08/30/23 Additional smoking assessment comments: pt has vapped since she was 13 about 20 times a day Alcohol intake: never Substance use: never Substance use type: marijuana Other substance usage details: did 1 time Lack of Transportation: No Lack of Food: Sometimes True Current Housing: I Have Housing Concerned About Future Housing: No Difficulty Paying Gas/Electric Bills: No Difficulty Paying for Meds: No Currently Unemployed: No Education: Grade School Difficulty w/ Childcare or Family Care: No Living arrangements: with family Occupation/Education: student 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 [employer] Gender identity (if verbalized by the patient): Female Sexual Orientation (if Verbalized by the Patient): Straight or Heterosexual Spiritual care concerns: No Anes - Eval Final PreProcedure Day of Procedure 09/03/25 04:40 Patient weight: overweight Heart: regular rate and rhythm Lungs: normal air movement Airway: Mallampati scale class II Neurological: alert and oriented Last oral intake: 2 hours ASA classification: II Emergent: no Anesthetic plan: proceed Anesthesia type and monitoring: regional epidural and standard monitoring Results Review: All pre-operative results and documents have been reviewed as part of the pre-operative evaluation. Informed Consent: The patient's anesthetic plan and its attendant risks and benefits were discussed with the patient/family/POA. Questions were solicited and answers provided to the satisfaction of the patient/family/POA.
[2025-09-03] MEDS: ONDANSETRON INJ 4 MG/2 ML VIAL IV PUSH (05:28)
--- NOTE | 2025-09-03 07:48 | WPDOBADMIT ---
Obstetrics - Admit Note Admission Note: record reviewed. No pertinent additions to the history and/or any subsequent changes in the physical findings that are not consistent with the expected course of the were found. Admitted for EIL at 39 weeks. AROM of clear fluid, SVE 10/100/-1. Anticipate . Additions to the history and/or subsequent changes in the physical findings follow. None.
--- NOTE | 2025-09-03 08:08 | PM.OBPRVD ---
OB - Vaginal Delivery Note Procedure Delivery date: 09/03/25 Events: Elective Induction of Labor Induction method: Per Pitocin Protocol Delivery augmentation: Rupture of Membranes Route of delivery: Episiotomy description: None Laceration Description: None Specimen: No Quantitative Blood Loss (ml): 100 Anesthesia type: Epidural Disposition: Floor Complications: No immediate complications Narrative: See H&P and notes for details on patient's admission and labor. She progressed to complete cervical dilation and at the appropriate time began pushing. With adequate expulsive efforts by the mother, the baby's head was delivered without difficulty. Nuchal cord was not present. The baby's right shoulder was anterior and delivered under the pubic symphysis without difficulty. The posterior shoulder and the rest of the baby delivered without difficulty. The umbilical cord was doubly clamped and cut after 60 seconds of delayed cord clamping. Care of the was then assumed by the nursing staff. [place] Baby Date of : 09/03/25 Time of : 08:00 Gestational Age by Date: 38 gender: Male presentation: vertex position: Right Occiput Posterior Placenta delivery description: Expressed Cord Vessel Description: 3 Vessels and Delayed Cord Clamping
[2025-09-03] MEDS: OXYTOCIN 30 UNITS/NS 500 ML 30 UNITS/500 ML BAG 125 UNITS IV CONT (08:31)
[2025-09-03] MEDS: IBUPROFEN 600 MG TABLET PO ×2 (09:47→18:57)
--- NOTE | 2025-09-03 10:38 | OBPPTRN ---
Patient transferred to post room # 280 via wheelchair. Support person present. Oriented to unit, room, information board, rooming in, admission packet and security measures. Patient verbalizes understanding.
[2025-09-04 03:52] LABS: Hematocrit 28.9 % (37.0-47.0); Hemoglobin 9.3 g/dL (12.0-15.0)
[2025-09-04 07:15] VITALS: BP 120/80; PULSE 66; RESP 16; TEMP 36.2; O2SAT 98
[2025-09-04] MEDS: DOCUSATE SODIUM 100 MG CAPSULE PO (08:04)
--- NOTE | 2025-09-04 09:16 | P.PNOB_ITS ---
OB - PN: Subj Subjective Date/time seen: 09/04/25 09:16 Interval history: pp day 1 doing well esires d/c home OB - PN: Obj Data Labs 09/04/25 03:27 Labs: Laboratory Results - last 24 hr 09/04/25 03:27 Hgb 9.3 L Hct 28.9 L OB - PN A/P Plan day: 1 Plan: routine care and discharge home Time Spent With Patient Time: Total time spent is greater than 50% in coordination of care (as documented) at patient's floor/unit and/or counseling patient: Review of Systems 2 Review of Systems: All systems reviewed & are unremarkable except as noted in HPI and below Exam 2 Const: General: cooperative, healthy appearing and comfortable Chest: Chest palpation & inspection: normal inspection of the chest Resp: Effort & Inspection: normal respiratory effort Cardio: Rate: regular rate GI: Other: soft
--- NOTE | 2025-09-04 09:18 | P.DS_ITS ---
DS: Admitting Diagnosis Discharge Date 09/04/25 Admitting Diagnosis IOL DS: Discharge Diagnosis Discharge Diagnosis (1) Vaginal delivery: Code(s): O80 - Encounter for full-term uncomplicated delivery Status: Acute OB - DS: Summary OB Procedures : None OB Procedures Intrapartum: Spontaneous Vag Delivery OB Procedures: : None Peripartum Data Laceration Description: None Episiotomy description: None Time Spent with Patient Time attestation: Total time spent providing and/or coordinating discharge services: DS: Data Data Completed and Pending Labs on day of discharge: Labs from last 24 hours 09/04/25 03:27 Hgb 9.3 L Hct 28.9 L Discharge Plan Discharge Attending physician on discharge: Jaspal Nuñez Discharging Clinician: Susan Perez Patient Disposition: Home Activity: pelvic rest Diet: regular Patient Instructions: Antibiotic Form Patient Language: Albanian Stand Alone Forms: General Discharge Information Follow-up/Referrals: Pietro Herrera MD [Physician, EMISSIONS TESTING TECHNICIAN] - 4 Weeks Discharge Medications: Continued Classic 1 tab-cap PO DAILY Patient Comments: .. ferrous sulfate 325 mg (65 mg iron) Tablet 325 mg PO DAILY Date of admission: 09/03/25 00:01 Primary Care Provider: UNKNOWN,DOCTOR Admitting Provider: Pietro Herrera Attending physician on admission: Pietro Herrera Condition: Stable
[2025-09-04] MEDS: TETANUS,DIPHTHERIA,AC PERTUSSIS ADULT (0.5 ML) BOOSTRIX IM (10:49)
[2025-09-04] MEDS: INFLUENZA VACCINE 45 MCG/0.5 ML SYRINGE IM (10:50)
== END 2025-09-04 12:50 | disposition home or self-care (01) | DRG 560 ==
LOC: ANHLDR 00:08 → ANHOB2 10:39
PROVIDERS: Admitting Provider Obstetrics & Gynecology; Visit Provider Obstetrics & Gynecology
DX: O62.3 Precipitate labor (principal); Z37.0 Single live birth; Z3A.39 39 weeks gestation of pregnancy; Z23 Encounter for immunization
CPT/HCPCS: 36415; 85014; 85018; 85025; 86593; 86850; 86900; 86901; 90471; 90656; 90715; A9270; G0008; J2003; J2405; J2590; J2795; J7120